=== PATIENT | female | born 1950 | race Caucasian/White ===

== ENCOUNTER 2018-09-29 12:32 | Day surgery (SDC) | payer MEDICARE, BC, SELFPAY ==
[2018-09-29 12:55] VITALS: BP 150/75; PULSE 77; RESP 16; TEMP 36.7; O2SAT 99
[2018-09-29] MEDS: CATARACT EYE COMPOUND (10 DROPS/SYRINGE) 3 DROPS EYE-OP (13:15)
[2018-09-29] MEDS: PROPARACAINE 0.5% OPHTH SOL 2 DROPS EYE-OP (13:15)
--- NOTE | 2018-09-29 13:55 | PM.PREOP ---
Pre-operative Note Interval Note Changes: No
--- NOTE | 2018-09-29 13:56 | P.OP.PRE_ITS ---
Pre-operative Note Interval Note Changes: No
--- NOTE | 2018-09-29 13:56 | P.OP_ITS ---
Operative Date/Time/Diagnoses Pre-op diagnosis: Nuclear cataract right eye Procedure & Clinicians Procedure: Cataract Surgery Same procedure as scheduled: Yes Surgeon: Florentino Berg Anesthesia Type: MAC +/- and Sedation Operative Notes Procedure in detail: Patient brought to the operating suite. Tetracaine drops placed in the right eye. Patient was prepped and draped in sterile manner. Wire lid speculum was placed in the eye. Betadine drops were placed on the eye. This was irrigated. Lidocaine jelly was placed on the eye. A paracentesis port was created with a side-port blade. 0.1 mL 1% preservative free lidocaine was injected into the anterior chamber. The anterior chamber was deepened with viscoelastic. 2.6 mm keratome was used to create a temporal clear corneal incision. Cystotome and Utrata forceps were used to create continuous tear capsulorrhexis. Balanced salt solution was used to hydro dissect the nucleus. The phacoemulsification handpiece was inserted and the nucleus was removed using the stop and chop technique. The irrigation aspiration handpiece was inserted and the remaining cortex was removed. Anterior chamber was deepened with viscoelastic. An Smith ZCB00 intraocular lens with a power of 17.0 was injected into the capsular bag. Irrigation aspiration handpiece was inserted and the remaining viscoelastic was removed. Incision was hydrated with balanced salt solution and found to be leak free with pressure with Weck- Amira sponges. 0.1 mL Vigamox injected anterior chamber. 0.3 mL Kenalog 10 mg was injected subconjunctivally. Lid speculum was removed. The patient left the operating room in excellent condition. Complications: none Condition: stable Disposition: same day surgery
--- NOTE | 2018-09-29 14:10 | SUR.OPER ---
Supine on eye stretcher, head on extension cradle secured with tape. Arms tucked at sides with blanket. Pillow under knees.
[2018-09-29] MEDS: CHONDROIDTIN/SOD HYALURONATE 1.05 ML SYRINGE INTRAOCULA (14:13)
[2018-09-29] MEDS: MOXIFLOXACIN OPHTH DROPS 3 ML BOTTLE 2 DROPS INJ (14:14)
[2018-09-29] MEDS: TETRACAINE 0.5% OPHTH DROPS 15 ML 2 DROPS EYE-RIGHT (14:14)
[2018-09-29] MEDS: PHENYLEPHRINE/LIDOCAINE VIAL (OR) 0.2 ML EYE-OP (14:14)
[2018-09-29] MEDS: LIDOCAINE JELLY 2% 5 ML 1 APPLIC TOP (14:14)
[2018-09-29] MEDS: BALANCED SALT IRRIG SOLN NO.2 500 ML, EPINEPHrine 1 MG IRR (14:15)
[2018-09-29] MEDS: TRIAMCINOLONE 50 MG/5 ML VIAL INJ (14:15)
[2018-09-29 14:28] VITALS: BP 148/76; PULSE 63; RESP 16; TEMP 36.6; O2SAT 97
--- NOTE | 2018-09-29 14:50 | SUR.PHASEII ---
l eye bloody on arrival to phase 2, dr cisse aware, instructed to remove shield and clean skin around eye, this completed, no further bleeding and shield placed back on.
== END 2018-09-29 14:48 ==
LOC: OR 12:39
PROVIDERS: PCP Family Medicine; Visit Provider Ophthalmology
DX: H25.11 Age-related nuclear cataract, right eye (principal); I10 Essential (primary) hypertension
CPT/HCPCS: J0171; J2250; J3010; J3301

== ENCOUNTER 2018-10-13 07:17 | Day surgery (SDC) | payer MEDICARE, BC, SELFPAY ==
[2018-10-13 07:45] VITALS: BP 143/69; PULSE 70; RESP 12; TEMP 37.2; O2SAT 97; BMI 22.3
[2018-10-13] MEDS: PROPARACAINE 0.5% OPHTH SOL 2 DROPS EYE-OP (08:04)
[2018-10-13] MEDS: CATARACT EYE COMPOUND (10 DROPS/SYRINGE) 3 DROPS EYE-OP (08:05)
[2018-10-13] MEDS: CITRIC ACID/SODIUM CITRATE 15 ML SOLUTION 30 ML PO (08:34)
--- NOTE | 2018-10-13 09:15 | P.OP_ITS ---
Operative Date/Time/Diagnoses Pre-op diagnosis: Nuclear Cataract Left eye Post-op diagnosis: same Procedure & Clinicians Surgeon: Florentino Berg Anesthesia Type: MAC +/- and Sedation Operative Notes Procedure in detail: Patient brought to the operating suite. Tetracaine drops placed in the left eye. Patient was prepped and draped in sterile manner. Wire lid speculum was placed in the eye. Betadine drops were placed on the eye. This was irrigated. Lidocaine jelly was placed on the eye. A paracentesis port was created with a side-port blade. 0.1 mL 1% preservative free lidocaine was injected into the anterior chamber. The anterior chamber was deepened with viscoelastic. 2.6 mm keratome was used to create a temporal clear corneal incision. Cystotome and Utrata forceps were used to create continuous tear capsulorrhexis. Balanced salt solution was used to hydro dissect the nucleus. The phacoemulsification handpiece was inserted and the nucleus was removed using the stop and chop technique. The irrigation aspiration handpiece was inserted and the remaining cortex was removed. Anterior chamber was deepened with viscoelastic. An Smith ZCB00 intraocular lens with a power of 22.0 was injected into the capsular bag. Irrigation aspiration handpiece was inserted and the remaining viscoelastic was removed. Incision was hydrated with balanced salt solution and found to be leak free with pressure with Weck- Amira sponges. 0.1 mL Vigamox injected anterior chamber. 0.3 mL Kenalog 10 mg was injected subconjunctivally. Lid speculum was removed. The patient left the operating room in excellent condition. Complications: none Condition: stable Disposition: same day surgery
--- NOTE | 2018-10-13 09:15 | P.OP.PRE_ITS ---
Pre-operative Note Interval Note Changes: No
--- NOTE | 2018-10-13 09:15 | PM.PREOP ---
Pre-operative Note Interval Note Changes: No
--- NOTE | 2018-10-13 09:26 | SUR.OPER ---
Supine on eye stretcher, head on extension cradle secured with tape. Arms tucked at sides with blanket. Pillow under knees.
[2018-10-13] MEDS: CHONDROIDTIN/SOD HYALURONATE 1.05 ML SYRINGE INTRAOCULA (09:28)
[2018-10-13] MEDS: PHENYLEPHRINE/LIDOCAINE VIAL (OR) 0.2 ML EYE-OP (09:29)
[2018-10-13] MEDS: LIDOCAINE JELLY 2% 5 ML 1 APPLIC TOP (09:29)
[2018-10-13] MEDS: MOXIFLOXACIN OPHTH DROPS 3 ML BOTTLE 2 DROPS INJ (09:29)
[2018-10-13] MEDS: TETRACAINE 0.5% OPHTH DROPS 15 ML 2 DROPS EYE-LEFT (09:30)
[2018-10-13] MEDS: TRIAMCINOLONE 50 MG/5 ML VIAL INJ (09:30)
[2018-10-13] MEDS: BALANCED SALT IRRIG SOLN NO.2 500 ML, EPINEPHrine 1 MG IRR (09:30)
[2018-10-13 09:47] VITALS: BP 122/73; PULSE 57; RESP 15; TEMP 36.4; O2SAT 97
--- NOTE | 2018-10-13 09:47 | SUR.PHASEII ---
iv dcd at 0947 pt tolerated well. cath intact no swelling or redness noted.
== END 2018-10-13 09:51 ==
LOC: OR 07:19
PROVIDERS: PCP Family Medicine; Visit Provider Ophthalmology
DX: H25.12 Age-related nuclear cataract, left eye (principal); I10 Essential (primary) hypertension
CPT/HCPCS: J0171; J2250; J3010; J3301

== ENCOUNTER → 2019-11-08 12:37 | Outpatient (CLI) | payer MEDICARE, BC, SELFPAY ==
[2019-11-08 13:31] LABS: Add Manual Diff / Slide Review NO; Basophils Absolute Auto 0 /uL (0-100); Basophils Percent Auto 0.7 % (0-2); Eosinophils Absolute Auto 200 /uL (0-450); Eosinophils Percent Auto 3.1 % (2-4); Hemoglobin 14.3 g/dL (12.0-16.0); Lymphocytes Absolute Auto 2000 /uL (1100-4500); Lymphocytes Percent Auto 32.5 % (25-40); Mean Corpuscular Hemoglobin 31.6 PG (26-34); Mean Corpuscular Volume 93.1 fL (80-100); Monocytes Absolute Auto 500 /uL (0-900); Monocytes Percent Auto 7.5 % (3-14); Neutrophils Absolute Auto 3500 /uL (1500-7000); Neutrophils Percent Auto 56.2 % (50-75); Platelet Count 353 X10^3/uL (150-400); Red Blood Cell Count 4.51 X10^6/uL (4.0-5.2); White Blood Cell Count 6.2 X10^3/uL (4.5-11.0)
[2019-11-08 13:49] LABS: Alanine Aminotransferase 21 IU/L (<35); Albumin 4.6 g/dL (3.5-5.0); Albumin Globulin Ratio 1.6 (1.0-2.8); Alkaline Phosphatase 93 U/L (38-126); Aspartate Aminotransferase 28 IU/L (14-36); BUN Creatinine Ratio 28.8 (6-22); Bilirubin Total 0.9 mg/dL (0.2-1.3); Blood Urea Nitrogen 23 mg/dL (7-17); Calcium 9.6 mg/dL (8.4-10.2); Carbon Dioxide 30 mmol/L (22-32); Chloride 102 mmol/L (98-107); Estimated Glomerular Filt Rate > 60.0 mL/min (>60); Globulin 2.9 g/dL (1.7-4.1); Glucose 98 mg/dL (80-110); HEMOLYSIS < 15 (0-50); Potassium 4.2 mmol/L (3.4-5.1); Sodium 140 mmol/L (137-145); Total Protein 7.5 g/dL (6.3-8.2)
[2019-11-08 15:12] LABS: Thyroid Stimulating Hormone 2.28 uIU/mL (0.47-4.68)
== END ==
PROVIDERS: PCP Family Medicine; Visit Provider Family Medicine
DX: E03.9 Hypothyroidism, unspecified (principal)
CPT/HCPCS: 36415; 80053; 84443; 85025

== ENCOUNTER → 2020-05-09 07:45 | Outpatient (CLI) | payer MEDICARE, BC, SELFPAY ==
[2020-05-09 08:24] LABS: Cholesterol 223 mg/dL (140-199); HDL Cholesterol 81 mg/dL (40-60); LDL Cholesterol Calculated 121 mg/dL (<100); Triglycerides 107 mg/dL (35-150)
[2020-05-09 08:28] LABS: Hemoglobin A1C% w Est Avg Glu 5.6 % (4.0-6.0)
== END ==
PROVIDERS: PCP Family Medicine; Referring Provider Family Medicine; Visit Provider Family Medicine
DX: E78.2 Mixed hyperlipidemia (principal); E16.2 Hypoglycemia, unspecified
CPT/HCPCS: 36415; 80061; 83036

== ENCOUNTER → 2020-07-04 08:46 | Outpatient (CLI) | payer MEDICARE, BC, SELFPAY ==
--- NOTE | 2020-07-04 08:47 | DI.US.S_ITS ---
LIMITED ULTRASOUND OF RIGHT BREAST AND AXILLA: 07/04/2020 CLINICAL: Right breast abnormal mammo and palpable area with dimpling. [facility] Color flow ultrasound of the right breast 5 o'clock, 11 o'clock, and axilla regions was performed. Schaefer scale images of the real-time examination were reviewed. There is a 0.3 cm x 0.4 cm x 0.2 cm oval mass with a circumscribed margin in the right breast at 5 o'clock in the retroareolar region 1 cm from the nipple. This oval mass is hypoechoic with posterior acoustic enhancement. This correlates as palpated. Color flow imaging demonstrates that there is no increase in vascularity. Adjacent to this lesion is another lesion with similar size and features. No significant abnormalities were seen sonographically in the right axilla. IMPRESSION: PROBABLY BENIGN The 0.3 cm x 0.4 cm x 0.2 cm oval mass in the right breast has a differential diagnosis of complicated cysts and is probably benign. A follow-up ultrasound in 6 months is recommended. There is no abnormality seen in the right breast to correspond with the mammography finding at 11 o'clock. A follow-up right mammogram and an ultrasound in 6 months is recommended to demonstrate stability. This exam was interpreted at Station ID: [id number]. Electronically Signed By: Enrico coffey/todd:07/04/2020 11:18:09 letter sent: Followup Recommended Ultrasound BI-RADS: 3 Probably benign
--- NOTE | 2020-07-04 08:47 | DI.MG.S_ITS ---
BILATERAL DIGITAL DIAGNOSTIC MAMMOGRAM 3D/2D: 07/04/2020 CLINICAL: Baseline. Right breast lump and dimpling. No prior exams were available for comparison. The tissue of both breasts is heterogeneously dense. This may lower the sensitivity of mammography. There are grouped coarse punctate calcifications in the right breast at 11 o'clock posterior depth. No other significant masses, calcifications, or other findings are seen in either breast. IMPRESSION: INCOMPLETE: NEEDS ADDITIONAL IMAGING EVALUATION The grouped coarse punctate calcifications in the right breast are probably benign. A follow-up in 6 months is recommended. There is no abnormality seen in the right breast to correspond with the palpable abnormality in the sub-areolar depth, however, ultrasound is recommended. This exam was interpreted at Station ID: [id number]. NOTE: For mammograms, a report in lay terms will be sent to the patient. Approximately 15% of breast malignancies will not be visualized mammographically. In the management of a palpable breast mass, a negative mammogram must not discourage biopsy of a clinically suspicious lesion. Electronically Signed By: Enrico coffey/todd:07/04/2020 11:11:57 ACR BI-RADS Category 0: Incomplete [id number]
== END ==
PROVIDERS: PCP Family Medicine; Referring Provider Family Medicine; Visit Provider Family Medicine
DX: R92.8 Other abnormal and inconclusive findings on diagnostic imaging of breast (principal); R92.1 Mammographic calcification found on diagnostic imaging of breast; N63.14 Unspecified lump in the right breast, lower inner quadrant
CPT/HCPCS: 76642; 77066; G0279

== ENCOUNTER → 2021-01-26 15:56 | Outpatient (CLI) | payer MEDICARE, BC, SELFPAY ==
[2021-01-26] MEDS: COVID-19 VACC #1, MRNA(MOD) 100 MCG/0.5 ML VIAL IM (16:04)
== END ==
PROVIDERS: PCP Nurse Practitioner; Visit Provider Internal Medicine
DX: Z23 Encounter for immunization (principal)
CPT/HCPCS: 0011A; 91301

== ENCOUNTER → 2021-02-23 10:44 | Outpatient (CLI) | payer MEDICARE, BC, SELFPAY ==
[2021-02-23] MEDS: COVID-19 VACC #2, MRNA(MOD) 100 MCG/0.5 ML VIAL IM (10:51)
== END ==
PROVIDERS: PCP Nurse Practitioner; Visit Provider Internal Medicine
DX: Z23 Encounter for immunization (principal)
CPT/HCPCS: 0012A; 91301

== ENCOUNTER → 2021-03-09 07:30 | Outpatient (CLI) | payer MEDICARE, BC, SELFPAY ==
[2021-03-09 08:21] LABS: Alanine Aminotransferase 23 IU/L (<35); Albumin 4.2 g/dL (3.5-5.0); Albumin Globulin Ratio 1.5 (1.0-2.8); Alkaline Phosphatase 87 U/L (38-126); Aspartate Aminotransferase 27 IU/L (14-36); BUN Creatinine Ratio 26.9 (6-22); Bilirubin Total 0.9 mg/dL (0.2-1.3); Blood Urea Nitrogen 21 mg/dL (7-17); Calcium 9.5 mg/dL (8.4-10.2); Carbon Dioxide 30 mmol/L (22-32); Chloride 104 mmol/L (98-107); Cholesterol 205 mg/dL (140-199); Estimated Glomerular Filt Rate > 60.0 mL/min (>60); Globulin 2.8 g/dL (1.7-4.1); Glucose 92 mg/dL (80-110); HDL Cholesterol 76 mg/dL (40-60); HEMOLYSIS < 15 (0-50); LDL Cholesterol Calculated 106 mg/dL (<100); Sodium 138 mmol/L (137-145); Triglycerides 115 mg/dL (35-150)
[2021-03-09 08:44] LABS: Free T3, Triiodothyronine Free 2.79 pg/mL (2.77-5.27); Free T4, Direct Thyroxine 1.04 ng/dL (0.78-2.19)
[2021-03-09 08:57] LABS: Thyroid Stimulating Hormone 3.33 uIU/mL (0.47-4.68)
== END ==
PROVIDERS: PCP Nurse Practitioner; Referring Provider Nurse Practitioner; Visit Provider Nurse Practitioner
DX: E03.9 Hypothyroidism, unspecified (principal); I10 Essential (primary) hypertension; E78.2 Mixed hyperlipidemia; Z79.899 Other long term (current) drug therapy
CPT/HCPCS: 36415; 80053; 80061; 84439; 84443; 84481

== ENCOUNTER → 2021-05-21 09:42 | Outpatient (CLI) | payer MEDICARE, BC, SELFPAY ==
--- NOTE | 2021-05-21 09:44 | DI.US.S_ITS ---
PROCEDURE: US PELVIC COMPLETE INDICATIONS: vaginal mass TECHNIQUE: Real-time scanning was performed of the pelvic organs, with image documentation. Additional endovaginal scanning was necessary due to incomplete visualization of the adnexal and endometrial structures by transabdominal scanning. COMPARISON: None. FINDINGS: Uterus: Surgically absent. A discrete pelvic masses not sonographically visible. Ovaries: Surgically absent Other: No pathologic free abdominal or pelvic fluid. Bladder grossly unremarkable. Postvoid residual measures 108 cc. IMPRESSION: No sonographically visible pelvic mass lesion identified. If there is persistent high clinical concern, further evaluation with cross-sectional imaging could be performed as clinically necessary. Dictated by: Best Mary M.D. on 05/21/2021 at 13:13 Approved by: Best Mary M.D. on 05/21/2021 at 13:16
== END ==
PROVIDERS: Family Provider Nurse Practitioner; PCP Nurse Practitioner; Referring Provider Nurse Practitioner; Visit Provider Nurse Practitioner
DX: N89.8 Other specified noninflammatory disorders of vagina (principal); Z90.710 Acquired absence of both cervix and uterus
CPT/HCPCS: 76830; 76856

== ENCOUNTER → 2021-05-25 08:45 | Outpatient (CLI) | payer MEDICARE, BC, SELFPAY ==
--- NOTE | 2021-05-25 08:46 | DI.MG.S_ITS ---
BILATERAL DIGITAL DIAGNOSTIC MAMMOGRAM 3D/2D: 05/25/2021 CLINICAL: Short term follow up of the right breast, due for bilateral imaging. Comparison is made to exams dated: 07/04/2020 ultrasound and 07/04/2020 mammogram - [facility]. The tissue of both breasts is heterogeneously dense. This may lower the sensitivity of mammography. There is an oval mass with a circumscribed margin in the right breast at 5 o'clock anterior depth. This is not significantly changed and correlates with ultrasound findings. There also are grouped coarse punctate calcifications in the right breast at 11 o'clock posterior depth. These are not significantly changed. No other significant masses, calcifications, or other findings are seen in either breast. IMPRESSION: INCOMPLETE: NEEDS ADDITIONAL IMAGING EVALUATION The oval mass in the right breast at 5 o'clock anterior depth is indeterminate. An ultrasound is recommended. The grouped coarse punctate calcifications in the right breast at 11 o'clock posterior depth are probably benign. A follow-up in 6 months is recommended. This exam was interpreted at Station ID: [id number]. NOTE: For mammograms, a report in lay terms will be sent to the patient. Approximately 15% of breast malignancies will not be visualized mammographically. In the management of a palpable breast mass, a negative mammogram must not discourage biopsy of a clinically suspicious lesion. Electronically Signed By: Enrico coffey/todd:05/25/2021 10:12:00 ACR BI-RADS Category 0: Incomplete [id number]
--- NOTE | 2021-05-25 08:46 | DI.US.S_ITS ---
LIMITED ULTRASOUND OF RIGHT BREAST: 05/25/2021 CLINICAL: 6 month follow-up of cysts. Comparison is made to exams dated: 05/25/2021 mammogram, 07/04/2020 ultrasound, and 07/04/2020 mammogram - [facility]. Color flow ultrasound of the right breast was performed. Schaefer scale images of the real-time examination were reviewed. There is a 0.3 cm x 0.4 cm x 0.2 cm oval cyst in the right breast at 5 o'clock in the retroareolar region 1 cm from the nipple. This oval cyst is hypoechoic with posterior acoustic enhancement. This abnormality is not significantly changed and correlates as palpated. Color flow imaging demonstrates that there is no increase in vascularity. Adjacent to this cyst is another complicated cyst with similar size and features. IMPRESSION: PROBABLY BENIGN The 0.3 cm x 0.4 cm x 0.2 cm oval cyst in the right breast most likely is complicated cysts and is probably benign. A follow-up ultrasound in 6 months is recommended. A follow-up right mammogram and an ultrasound in 6 months is recommended to demonstrate stability. This exam was interpreted at Station ID: [id number]. Electronically Signed By: Enrico coffey/todd:05/25/2021 10:14:25 letter sent: Followup Recommended Ultrasound BI-RADS: 3 Probably benign
== END ==
PROVIDERS: Family Provider Nurse Practitioner; PCP Nurse Practitioner; Referring Provider Nurse Practitioner; Visit Provider Nurse Practitioner
DX: R92.8 Other abnormal and inconclusive findings on diagnostic imaging of breast (principal); R92.1 Mammographic calcification found on diagnostic imaging of breast; N60.01 Solitary cyst of right breast; N89.8 Other specified noninflammatory disorders of vagina
CPT/HCPCS: 76642; 77066; G0279

== ENCOUNTER 2021-07-27 11:15 | Outpatient (RCR) | payer MEDICARE, BC, SELFPAY ==
--- NOTE | 2021-04-06 16:44 | PT.OIE ---
Current Diagnoses Muscle weakness (generalized) (04/06/21) Mixed incontinence (04/06/21) Other specified urinary incontinence (04/06/21) Other specified symptoms and signs involving the digestive system and abdomen (04/06/21) Abnormal posture (04/06/21) Past Medical History (Last Updated 12/12/20 @ 11:09 by KELLEY Aquino) Hypertension Past Surgical History (Last Reviewed 12/12/20 @ 10:27 by KELLEY Aquino) S/P total abdominal hysterectomy and bilateral salpingo-oophorectomy Visit Care Team Role Provider Type KELLEY Aquino Attending Provider Advanced Sports Coordinator Family Provider Primary Care Provider Referring Provider Specialty: [facility] Address: [address] [place] [address] Email: [email or web address] Therapy Initial Evaluation PT-OP-A Visit Information Start: 03/26/21 18:37 Freq: Status: Active Protocol: Document 04/06/21 08:16 LRN (Rec: 04/06/21 09:48 LRN [id number]) Out-Patient Physical Therapy Visit Information Visit Information Visit Type Treatment Note Visit Start Time 08:16 Visit Stop Time 09:20 Total Visit Minutes 64 Visit Number 1 Evaluation Information Evaluation Date 04/06/21 Precautions Precautions [facility] in shoulder blades - 12/21, Heart attack 2012. Pt noted in her teens she had negative experience with incorrect boundries by a health provider. PT-OP-B Current Condition Start: 03/26/21 18:37 Freq: Status: Active Protocol: Document 04/06/21 08:16 LRN (Rec: 04/06/21 09:48 LRN [id number]) Current Condition History of Current Condition Onset Date Worsened gradually since late 's. Current Complaints Urgency History of Current Condition Pt states she has primary problem of urgency and has noted increased frequency. She has tried estrogen treatment for her problem, but didn't find it helpful. Her urinary urgency started in her 20's and has gradually worsened since her late 30's. She is sometimes has total loss of urinary control and is most noticeable when approaching her house. She has to change clothes a couple times a week due to total loss of control. Incontinence comes after intercourse the day after; therefore she is no longer sexually active. Has studied iatrogenic problems for her urgency and is not taking cranberry tablets and Uvaursi (over the counter pill). Pt is a retired Psychotherapist. Prior Treatments and Tests Estrogen treatment used by Dr. Vizcarra didn't help. Currently taking Oxybutryn, cranberry tablets, Uvaursi, and estogen suppositories. Developmental History Developmental History Urinary urgency started in 20' s when became sexually active and with use of IUD. Was diagnosed with urinary urgency worsened in late 30's. At some point pt was diagnosed with cystitis & had hysterectomy with 1 ovary removed. Uses estrogen insert . No longer sexually active because of urinary leakage after intercourse. Has had bladder pain and pelvic floor pain after sex ( diagnosed with cystitis) - drinking cranberry juice helped (anti-bitics didn't help). Now has urgency and some frequency. As approach house urgency gets worse. Treatment Goals Patient/Caregiver Goals Pt goal is to not change clothes, and to be able to: exercise, ride bike, and have option of having sex. Prior Functional Status Baseline Function- ADL's Independent Baseline Function- Mobility Independent Baseline Function- Other Urgency - some control of urine. Current Functional Impairments (Reported) Functional Limitations- ADL's Doesn't walk [place] Not able to ride bike Not lifting weights Doesn't have sex Functional Limitations- Other Urgency, w/o medications, the urine poors out. Lack of control - not able to stop urine flow. Personal Factors Other Personal Factors That May Effect In her teens she had negative Therapy/Recovery experience with incorrect boundries by a health provider . Heart attack 2012. PT-OP-C Subjective Start: 03/26/21 18:37 Freq: Status: Active Protocol: Document 04/06/21 08:16 LRN (Rec: 04/06/21 09:48 LRN [id number]) Patient Questionnaires Pelvic Pain and Urgency/Frequency Patient Symptom Scale Pelvic Pain Score 14 PT-OP-I Pelvic Floor Start: 03/26/21 18:37 Freq: Status: Active Protocol: Document 04/06/21 08:16 LRN (Rec: 04/06/21 09:48 LRN [id number]) Pelvic Floor Assessment Urine Pelvic Floor Surgery No: Had hyste to remove 1 ovary Urinary Symptoms Urge Sensation,Dribbling After Urination,Incomplete Emptying Other Urinary Symptoms Hard to start stream. Leakage Size Large Leakage Cause Cough,Exercise,Lifting,Sneeze, Urge Other Leakage Causes Leakage is small. Unlocking house. Major leaking 2x/week. Leaks Per Day 2 Voiding Frequency 10 Nocturia 2-3 Pads Used In 24 Hours 1 Urine Pad Type Panty Liner Bowel Bowel Symptoms Uncontrolled Flatulence Other Bowel Symptoms Bowel surgery - 1984 due to fissure, removed and sewed up tissues fragile and took 1 yr to heal. Corrected due to pain. Bowel Movement Frequency 1x/day [place] Stool Chart Type 1-7 4 [place] Stool Chart Comments type of stool 4 & 5 Prolapse Cystocele Grade 2 Contraction Ability Voluntary Contraction Moderate Manual Muscle Testing Left 2 Manual Muscle Testing Right 3 Manual Muscle Testing Anterior 0 Manual Muscle Testing Posterior 3 Muscle Endurance (Seconds) 10 Number of Quick Contractions In 10 9 Seconds Comments Pelvic Floor Comments Pt able to relax the PF but requires conscientious awareness to relax. Endurance contractioin: Uncoordinated with no inward pull noted. PT-OP-J Posture/Palpation/Skin Start: 03/26/21 18:37 Freq: Status: Active Protocol: Document 04/06/21 08:16 LRN (Rec: 04/06/21 09:48 LRN [id number]) Posture Evaluation Position Standing Head/C-Spine Posture Forward Head T-Spine Posture Flattened L-Spine Posture Increased Lordosis Pelvis Posture Anteriorly Tilted,(L) Rotated Anterior,(R) Rotated Anterior Weight Distribution Balanced Comments Posture Comments Wide stance. PT-OP-K Range of Motion Start: 03/26/21 18:37 Freq: Status: Active Protocol: Document 04/06/21 08:16 LRN (Rec: 04/06/21 09:48 LRN [id number]) Lumbar Spine Range of Motion Lumbar Spine Active Percentage Flexion 90 ROM Limitations Soft Tissue Tightness Comments 100% except as indicated above . Hip Goniometric Range of Motion Hip Right Passive Testing Position Supine Straight Leg Raise 75 Abduction 20 Internal Rotation 45 External Rotation 65 Comments Decr IR Left Passive Testing Position Supine Straight Leg Raise 75 Abduction 28 Internal Rotation 45 External Rotation 55 Comments Decreased ER & IR Hip ROM Limitations Comments Pt had urgency after ROM testing of hip AD's PT-OP-M Strength Start: 03/26/21 18:37 Freq: Status: Active Protocol: Document 04/06/21 08:16 LRN (Rec: 04/06/21 09:48 LRN [id number]) Trunk Strength Trunk Manual Muscle Testing Flexion 3 Fair Rotation Left 3- Fair- Rotation Right 3- Fair- Core Stabilization Loss of stab with LE MMT of flexion and AB bilaterally. Hip Strength Hip Manual Muscle Testing Right Flexion (L2) 3 Fair Extension (S1) 2+ Poor+ Abduction 5 Normal Adduction 5 Normal External Rotation 3 Fair Internal Rotation 3 Fair Left Flexion (L2) 3 Fair Extension (S1) 2+ Poor+ Abduction 5 Normal Adduction 5 Normal External Rotation 3 Fair Internal Rotation 3 Fair PT-OP-Q Treatments Start: 03/26/21 18:37 Freq: Status: Active Protocol: Document 04/06/21 08:16 LRN (Rec: 04/06/21 09:48 LRN [id number]) Self-Care/Home Management Treatment Education Patient Education Home Exercise Program Other Education Discussed results of evaluation, goals and plan of care. Activities Self-Care/Home Management Activities Instructed pt in completion of bladder diary for next 7 days . PT-OP-T Assessment and Plan Start: 03/26/21 18:37 Freq: Status: Active Protocol: Document 04/06/21 08:16 LRN (Rec: 04/06/21 09:48 LRN [id number]) Physical Therapy Assessment Rehab Potential Rehabilitation Potential Good Evaluation Complexity Number of Personal Factors/Comorbidities 1-2 Number of Body Systems Impaired 4 or More Clinical Presentation at Evaluation Evolving Impairments Impairments Activity Tolerance,Pain,ROM, Strength Goals Four Impairment Decreased awareness of performing a proper PF contraction. Short Term Goal (STG) Improve awareness of a proper PF contraction STG Duration 03/22/21 Orthopaedic Doctor Goal (LTG) Pt will be aware of the sensation of a proper PF contraction. LTG: Pt will be able to isolate a PF contraction without overuse of the outer abdominal muscles, hip AD?s muscles, and gluteal muscles. LTG Duration 07/05/21 Three Impairment Urinary incontinence with a strong urge & increased activity Short Term Goal (STG) Pt will be able to return to exercise in an exercise gym without fear of urinary leakage. STG Duration 06/01/21 Group Home Goal (LTG) Pt will be able to return to ride a bike without fear of urinary leakage. LTG Duration 07/05/21 Two Impairment Urinary incontinence Short Term Goal (STG) Pt will not have to change clothes 2-3x/week. STG Duration 05/04/21 Orthopaedic Doctor Goal (LTG) Pt will feel she has an option of having sex without fear of unmanageable urinary leakage the day after. LTG Duration 07/05/21 One Impairment Pt lacks appropriate self care HEP. Short Term Goal (STG) Pt will be independent with a HEP of hip stretches for hip flexors, hamstrings, & hip rotators. (Initially: decreased L hip mobility (in deg's): PSLR: 75 deg's bilaterally; IR 45 deg's bilaterally; ER 55 L, 65 R; AB 28 L, 20 R). Orthopaedic Doctor Goal (LTG) Pt educated in self care HEP including appropriate PF exercises and hip mobility exercises (PSLR,hip rotation and AB mobility). LTG Duration 07/05/21 Assessment Summary Assessment Pt is a 71 yo female who presents with urge incontinence and to a lesser degree stress incontinence. She doesn't appear at this time to have GI involvement, but further determination will be done after she provides a bladder diary. The pt demonstrates tightness with pain in the R lateral wall (6- 9 of PF clock) and weakness/ swelling in the tissue in the L lateral wall (2-3 of the PF clock) that will need further assessment. The pt has been advised to seek follow up assessment with referring physician. The pt also demonstrates postural changes, trunk weakness, and decreased hip mobility. She demonstrated onset of urgency with palpation and stretch to her hip adductors during the evalation. The pt will benefit from skilled physical therapy to minimize urinary leakage, improve control of uinary leakage, improve ability to exercise for her health and work towards the below stated goals. Physical Therapy Plan Frequency and Duration Frequency of Treatment 1x/Week Plan of Care Start Date 04/06/21 Plan of Care End Date 07/05/21 Therapeutic Interventions Therapeutic Interventions Coordination Training,Home Exercise Program,Joint Mobilizations,Manual Therapy, Neuromuscular Re-education, Patient/Caregiver Education, Self-Care/Home Management,Soft Tissue Mobilization, Therapeutic Activities, Therapeutic Exercises Modalities Biofeedback,Cold Pack/Ice Massage,Electric Stimulation, Hot Packs Other Referrals/Consults Referrals/Consults Recommended Referring physician for assessment for swelling at L side of PF. Next Visit Focus/Plan Next Note Type Treatment Note Next Visit Plan Review bladder diary, biofeedback assessment with vaginal/rectal/surface sensor( s), Educate pt in urinary delay technique, pt education in proper Kegel without use of substitute muscles, pt education in proper perineum care, deep breathing and transfers, PF/core/hip strengthening, improve hip mobility. Rehab for mixed urinary incontinence with focus on urge incontinence.
--- NOTE | 2021-04-12 16:22 | PT.OTN ---
Current Diagnoses Muscle weakness (generalized) (04/12/21) Mixed incontinence (04/12/21) Other specified urinary incontinence (04/12/21) Other specified symptoms and signs involving the digestive system and abdomen (04/12/21) Abnormal posture (04/12/21) Physical Therapy Treatment Note PT-OP-A Visit Information Start: 03/26/21 18:37 Freq: Status: Active Protocol: Document 04/12/21 11:27 LRN (Rec: 04/12/21 12:19 LRN [id number]) Out-Patient Physical Therapy Visit Information Visit Information Visit Type Treatment Note Visit Start Time 11:27 Visit Stop Time 12:13 Total Visit Minutes 46 Visit Number 2 Evaluation Information Evaluation Date 04/06/21 Precautions Precautions [facility] in shoulder blades - 12/21, Heart attack 2012. Pt noted in her teens she had negative experience with incorrect boundries by a health provider. PT-OP-B Current Condition Start: 03/26/21 18:37 Freq: Status: Active Protocol: Document 04/06/21 08:16 LRN (Rec: 04/06/21 09:48 LRN [id number]) Current Condition History of Current Condition Onset Date Worsened gradually since late 's. Current Complaints Urgency History of Current Condition Pt states she has primary problem of urgency and has noted increased frequency. She has tried estrogen treatment for her problem, but didn't find it helpful. Her urinary urgency started in her 20's and has gradually worsened since her late 30's. She is sometimes has total loss of urinary control and is most noticeable when approaching her house. She has to change clothes a couple times a week due to total loss of control. Incontinence comes after intercourse the day after; therefore she is no longer sexually active. Has studied iatrogenic problems for her urgency and is not taking cranberry tablets and Uvaursi (over the counter pill). Pt is a retired Psychotherapist. Prior Treatments and Tests Estrogen treatment used by Dr. Vizcarra didn't help. Currently taking Oxybutryn, cranberry tablets, Uvaursi, and estogen suppositories. Developmental History Developmental History Urinary urgency started in 20' s when became sexually active and with use of IUD. Was diagnosed with urinary urgency worsened in late 30's. At some point pt was diagnosed with cystitis & had hysterectomy with 1 ovary removed. Uses estrogen insert . No longer sexually active because of urinary leakage after intercourse. Has had bladder pain and pelvic floor pain after sex ( diagnosed with cystitis) - drinking cranberry juice helped (anti-bitics didn't help). Now has urgency and some frequency. As approach house urgency gets worse. Treatment Goals Patient/Caregiver Goals Pt goal is to not change clothes, and to be able to: exercise, ride bike, and have option of having sex. Prior Functional Status Baseline Function- ADL's Independent Baseline Function- Mobility Independent Baseline Function- Other Urgency - some control of urine. Current Functional Impairments (Reported) Functional Limitations- ADL's Doesn't walk [place] Not able to ride bike Not lifting weights Doesn't have sex Functional Limitations- Other Urgency, w/o medications, the urine poors out. Lack of control - not able to stop urine flow. Personal Factors Other Personal Factors That May Effect In her teens she had negative Therapy/Recovery experience with incorrect boundries by a health provider . Heart attack 2012. PT-OP-C Subjective Start: 03/26/21 18:37 Freq: Status: Active Protocol: Document 04/12/21 11:27 LRN (Rec: 04/12/21 12:19 LRN [id number]) OP-PT Subjective Patient Comments Patient Comments States her BUN level was up and she was told to drink more water (64 oz's). States she has been drinking 32 oz's daily. Stopped taking [facility] URSI because hairdresser said it was bad for kidneys. PT-OP-I Pelvic Floor Start: 03/26/21 18:37 Freq: Status: Active Protocol: Document 04/06/21 08:16 LRN (Rec: 04/06/21 09:48 LRN [id number]) Pelvic Floor Assessment Urine Pelvic Floor Surgery No: Had hyste to remove 1 ovary Urinary Symptoms Urge Sensation,Dribbling After Urination,Incomplete Emptying Other Urinary Symptoms Hard to start stream. Leakage Size Large Leakage Cause Cough,Exercise,Lifting,Sneeze, Urge Other Leakage Causes Leakage is small. Unlocking house. Major leaking 2x/week. Leaks Per Day 2 Voiding Frequency 10 Nocturia 2-3 Pads Used In 24 Hours 1 Urine Pad Type Panty Liner Bowel Bowel Symptoms Uncontrolled Flatulence Other Bowel Symptoms Bowel surgery - 1984 due to fissure, removed and sewed up tissues fragile and took 1 yr to heal. Corrected due to pain. Bowel Movement Frequency 1x/day [place] Stool Chart Type 1-7 4 [place] Stool Chart Comments type of stool 4 & 5 Prolapse Cystocele Grade 2 Contraction Ability Voluntary Contraction Moderate Manual Muscle Testing Left 2 Manual Muscle Testing Right 3 Manual Muscle Testing Anterior 0 Manual Muscle Testing Posterior 3 Muscle Endurance (Seconds) 10 Number of Quick Contractions In 10 9 Seconds Comments Pelvic Floor Comments Pt able to relax the PF but requires conscientious awareness to relax. Endurance contractioin: Uncoordinated with no inward pull noted. PT-OP-J Posture/Palpation/Skin Start: 03/26/21 18:37 Freq: Status: Active Protocol: Document 04/06/21 08:16 LRN (Rec: 04/06/21 09:48 LRN [id number]) Posture Evaluation Position Standing Head/C-Spine Posture Forward Head T-Spine Posture Flattened L-Spine Posture Increased Lordosis Pelvis Posture Anteriorly Tilted,(L) Rotated Anterior,(R) Rotated Anterior Weight Distribution Balanced Comments Posture Comments Wide stance. PT-OP-K Range of Motion Start: 03/26/21 18:37 Freq: Status: Active Protocol: Document 04/06/21 08:16 LRN (Rec: 04/06/21 09:48 LRN [id number]) Lumbar Spine Range of Motion Lumbar Spine Active Percentage Flexion 90 ROM Limitations Soft Tissue Tightness Comments 100% except as indicated above . Hip Goniometric Range of Motion Hip Right Passive Testing Position Supine Straight Leg Raise 75 Abduction 20 Internal Rotation 45 External Rotation 65 Comments Decr IR Left Passive Testing Position Supine Straight Leg Raise 75 Abduction 28 Internal Rotation 45 External Rotation 55 Comments Decreased ER & IR Hip ROM Limitations Comments Pt had urgency after ROM testing of hip AD's PT-OP-M Strength Start: 03/26/21 18:37 Freq: Status: Active Protocol: Document 04/06/21 08:16 LRN (Rec: 04/06/21 09:48 LRN [id number]) Trunk Strength Trunk Manual Muscle Testing Flexion 3 Fair Rotation Left 3- Fair- Rotation Right 3- Fair- Core Stabilization Loss of stab with LE MMT of flexion and AB bilaterally. Hip Strength Hip Manual Muscle Testing Right Flexion (L2) 3 Fair Extension (S1) 2+ Poor+ Abduction 5 Normal Adduction 5 Normal External Rotation 3 Fair Internal Rotation 3 Fair Left Flexion (L2) 3 Fair Extension (S1) 2+ Poor+ Abduction 5 Normal Adduction 5 Normal External Rotation 3 Fair Internal Rotation 3 Fair PT-OP-Q Treatments Start: 03/26/21 18:37 Freq: Status: Active Protocol: Document 04/12/21 11:27 LRN (Rec: 04/12/21 12:19 LRN [id number]) Self-Care/Home Management Treatment Education Other Education Reviewed bladder diary f/b the following discussions: Education in norms of bladder habits and recommendations of areas that pt may improve. Discussed at length drinking habits of coffee and other bladder irritants (sugar, carbinated drinks). Educated at length Urge deference technique with long discussion of varying factors associated with timing and technique to use (special case of pt's AM vs PM due to choice of drinking coffee in AM). Educated pt in changes in bladder response based on fluids intake. Briefly discussed bladder retraining. Addressed pt's questions regarding urinary leakage/PF strengthening as related to caffeine use and alternatives for improving cognition (ex - increase sleep, natural simulants - exercise & over the counter oils that are physician approved). Activities Self-Care/Home Management Activities Issued & reviewed HEP: Deep Breathing & Urge deference technique & bladder retraining protocol. PT-OP-T Assessment and Plan Start: 03/26/21 18:37 Freq: Status: Active Protocol: Document 04/12/21 11:27 LRN (Rec: 04/12/21 12:19 LRN [id number]) Physical Therapy Assessment Goals Four Impairment Decreased awareness of performing a proper PF contraction. Short Term Goal (STG) Improve awareness of a proper PF contraction STG Duration 03/22/21 Assisted Goal (LTG) Pt will be aware of the sensation of a proper PF contraction. LTG: Pt will be able to isolate a PF contraction without overuse of the outer abdominal muscles, hip AD?s muscles, and gluteal muscles. LTG Duration 07/05/21 Three Impairment Urinary incontinence with a strong urge & increased activity Short Term Goal (STG) Pt will be able to return to exercise in an exercise gym without fear of urinary leakage. STG Duration 06/01/21 Bridge Construction Inspector Goal (LTG) Pt will be able to return to ride a bike without fear of urinary leakage. LTG Duration 07/05/21 Two Impairment Urinary incontinence Short Term Goal (STG) Pt will not have to change clothes 2-3x/week. STG Duration 05/04/21 Bridge Construction Inspector Goal (LTG) Pt will feel she has an option of having sex without fear of unmanageable urinary leakage the day after. LTG Duration 07/05/21 One Impairment Pt lacks appropriate self care HEP. Short Term Goal (STG) Pt will be independent with a HEP of hip stretches for hip flexors, hamstrings, & hip rotators. (Initially: decreased L hip mobility (in deg's): PSLR: 75 deg's bilaterally; IR 45 deg's bilaterally; ER 55 L, 65 R; AB 28 L, 20 R). Assisted Goal (LTG) Pt educated in self care HEP including appropriate PF exercises and hip mobility exercises (PSLR, hip rotation and AB mobility). LTG Duration 07/05/21 Assessment Summary Assessment Per bladder diary review the pt shows increased voiding every hour after caffeine consumption in the AM; voiding was less in PM with drinking of maily water. Pt urinary leakage was typically 3-4x/day and fairly consistently late at night before bed; therefore urgency/eakage during the day appears to be due to caffeine , and in evening may be habitual that may be helped with bladder retraining. The pt sometimes leaks in the middle of the night with voiding with long urinary times; therefore may be more related to PF weakness. PF strengthening and bladder retraining needed. Physical Therapy Plan Frequency and Duration Frequency of Treatment 1x/Week Plan of Care Start Date 04/06/21 Plan of Care End Date 07/05/21 Next Visit Focus/Plan Next Note Type Treatment Note Next Visit Plan Review results of urge deference technique on reducing urinary leakage. Review Deep Breathing. Biofeedback assessment with vaginal/rectal/surface sensor( s) and use of E-stim for PF awareness training for proper/ coordinated PF contraction. Educate in proper Kegel without use of substitute muscles, pt education in proper perineum care, and transfers/proper breathing, PF /core/hip strengthening, improve hip mobility. Rehab for mixed urinary incontinence with focus on urge incontinence.
--- NOTE | 2021-04-17 15:47 | PT.OTN ---
Current Diagnoses Muscle weakness (generalized) (04/17/21) Mixed incontinence (04/17/21) Other specified urinary incontinence (04/17/21) Other specified symptoms and signs involving the digestive system and abdomen (04/17/21) Abnormal posture (04/17/21) Physical Therapy Treatment Note PT-OP-A Visit Information Start: 03/26/21 18:37 Freq: Status: Active Protocol: Document 04/17/21 14:22 LRN (Rec: 04/17/21 15:46 LRN [id number]) Out-Patient Physical Therapy Visit Information Visit Information Visit Type Treatment Note Visit Start Time 14:22 Visit Stop Time 15:12 Total Visit Minutes 50 Visit Number 3 Evaluation Information Evaluation Date 04/06/21 Precautions Precautions [facility] in shoulder blades - 12/21, Heart attack 2012. Pt noted in her teens she had negative experience with incorrect boundries by a health provider. PT-OP-B Current Condition Start: 03/26/21 18:37 Freq: Status: Active Protocol: Document 04/06/21 08:16 LRN (Rec: 04/06/21 09:48 LRN [id number]) Current Condition History of Current Condition Onset Date Worsened gradually since late 's. Current Complaints Urgency History of Current Condition Pt states she has primary problem of urgency and has noted increased frequency. She has tried estrogen treatment for her problem, but didn't find it helpful. Her urinary urgency started in her 20's and has gradually worsened since her late 30's. She is sometimes has total loss of urinary control and is most noticeable when approaching her house. She has to change clothes a couple times a week due to total loss of control. Incontinence comes after intercourse the day after; therefore she is no longer sexually active. Has studied iatrogenic problems for her urgency and is not taking cranberry tablets and Uvaursi (over the counter pill). Pt is a retired Psychotherapist. Prior Treatments and Tests Estrogen treatment used by Dr. Vizcarra didn't help. Currently taking Oxybutryn, cranberry tablets, Uvaursi, and estogen suppositories. Developmental History Developmental History Urinary urgency started in 20' s when became sexually active and with use of IUD. Was diagnosed with urinary urgency worsened in late 30's. At some point pt was diagnosed with cystitis & had hysterectomy with 1 ovary removed. Uses estrogen insert . No longer sexually active because of urinary leakage after intercourse. Has had bladder pain and pelvic floor pain after sex ( diagnosed with cystitis) - drinking cranberry juice helped (anti-bitics didn't help). Now has urgency and some frequency. As approach house urgency gets worse. Treatment Goals Patient/Caregiver Goals Pt goal is to not change clothes, and to be able to: exercise, ride bike, and have option of having sex. Prior Functional Status Baseline Function- ADL's Independent Baseline Function- Mobility Independent Baseline Function- Other Urgency - some control of urine. Current Functional Impairments (Reported) Functional Limitations- ADL's Doesn't walk [place] Not able to ride bike Not lifting weights Doesn't have sex Functional Limitations- Other Urgency, w/o medications, the urine poors out. Lack of control - not able to stop urine flow. Personal Factors Other Personal Factors That May Effect In her teens she had negative Therapy/Recovery experience with incorrect boundries by a health provider . Heart attack 2012. PT-OP-C Subjective Start: 03/26/21 18:37 Freq: Status: Active Protocol: Document 04/17/21 14:22 LRN (Rec: 04/17/21 15:46 LRN [id number]) OP-PT Subjective Patient Comments Patient Comments ..... PT-OP-I Pelvic Floor Start: 03/26/21 18:37 Freq: Status: Active Protocol: Document 04/06/21 08:16 LRN (Rec: 04/06/21 09:48 LRN [id number]) Pelvic Floor Assessment Urine Pelvic Floor Surgery No: Had hyste to remove 1 ovary Urinary Symptoms Urge Sensation,Dribbling After Urination,Incomplete Emptying Other Urinary Symptoms Hard to start stream. Leakage Size Large Leakage Cause Cough,Exercise,Lifting,Sneeze, Urge Other Leakage Causes Leakage is small. Unlocking house. Major leaking 2x/week. Leaks Per Day 2 Voiding Frequency 10 Nocturia 2-3 Pads Used In 24 Hours 1 Urine Pad Type Panty Liner Bowel Bowel Symptoms Uncontrolled Flatulence Other Bowel Symptoms Bowel surgery - 1984 due to fissure, removed and sewed up tissues fragile and took 1 yr to heal. Corrected due to pain. Bowel Movement Frequency 1x/day [place] Stool Chart Type 1-7 4 [place] Stool Chart Comments type of stool 4 & 5 Prolapse Cystocele Grade 2 Contraction Ability Voluntary Contraction Moderate Manual Muscle Testing Left 2 Manual Muscle Testing Right 3 Manual Muscle Testing Anterior 0 Manual Muscle Testing Posterior 3 Muscle Endurance (Seconds) 10 Number of Quick Contractions In 10 9 Seconds Comments Pelvic Floor Comments Pt able to relax the PF but requires conscientious awareness to relax. Endurance contractioin: Uncoordinated with no inward pull noted. PT-OP-J Posture/Palpation/Skin Start: 03/26/21 18:37 Freq: Status: Active Protocol: Document 04/06/21 08:16 LRN (Rec: 04/06/21 09:48 LRN [id number]) Posture Evaluation Position Standing Head/C-Spine Posture Forward Head T-Spine Posture Flattened L-Spine Posture Increased Lordosis Pelvis Posture Anteriorly Tilted,(L) Rotated Anterior,(R) Rotated Anterior Weight Distribution Balanced Comments Posture Comments Wide stance. PT-OP-K Range of Motion Start: 03/26/21 18:37 Freq: Status: Active Protocol: Document 04/06/21 08:16 LRN (Rec: 04/06/21 09:48 LRN [id number]) Lumbar Spine Range of Motion Lumbar Spine Active Percentage Flexion 90 ROM Limitations Soft Tissue Tightness Comments 100% except as indicated above . Hip Goniometric Range of Motion Hip Right Passive Testing Position Supine Straight Leg Raise 75 Abduction 20 Internal Rotation 45 External Rotation 65 Comments Decr IR Left Passive Testing Position Supine Straight Leg Raise 75 Abduction 28 Internal Rotation 45 External Rotation 55 Comments Decreased ER & IR Hip ROM Limitations Comments Pt had urgency after ROM testing of hip AD's PT-OP-M Strength Start: 03/26/21 18:37 Freq: Status: Active Protocol: Document 04/06/21 08:16 LRN (Rec: 04/06/21 09:48 LRN [id number]) Trunk Strength Trunk Manual Muscle Testing Flexion 3 Fair Rotation Left 3- Fair- Rotation Right 3- Fair- Core Stabilization Loss of stab with LE MMT of flexion and AB bilaterally. Hip Strength Hip Manual Muscle Testing Right Flexion (L2) 3 Fair Extension (S1) 2+ Poor+ Abduction 5 Normal Adduction 5 Normal External Rotation 3 Fair Internal Rotation 3 Fair Left Flexion (L2) 3 Fair Extension (S1) 2+ Poor+ Abduction 5 Normal Adduction 5 Normal External Rotation 3 Fair Internal Rotation 3 Fair PT-OP-Q Treatments Start: 03/26/21 18:37 Freq: Status: Active Protocol: Document 04/17/21 14:22 LRN (Rec: 04/17/21 15:46 LRN [id number]) Therapeutic Exercises Supine Exercises Kegel for awareness/relaxation Supine Exercise Name Kegel awareness & relaxation Reps/Minutes 10' Comments Reviewed with handout and much v. cuing for relaxation Deep Breathing Supine Exercise Name Deep Breathing review Reps/Minutes 2' Comments Initial v. cuing reminder of breathing over 5-6 sec period. Hip ER stretch Supine Exercise Name Fig 4 stretch, f/t active stretch Side bilateral Reps/Minutes 8' Comments Pt needed phys cuing for active stretch. Self-Care/Home Management Treatment Education Patient Education Home Exercise Program Other Education Discussed pt changes: increase fluid intake, decreased coffee (less than 1/ 3 of what drank before), stopped Uvaursi (because bad for kidney) started using stationary ex bike. Discussed at length & educated pt on negative aspects of being on bike (sitting posture/ placement and proper breathing ). Discussed other form of exercise like walking and how gait, posture, and mechanical dysfunctions in LE/trunk can affect PF function. Discussed briefly pt stess at home. Discussed at length my request for pt to follow up with physician regarding soft tissue of vaginal canal on L side and listened to pt's concern over vaginal exams. Activities Self-Care/Home Management Activities Issued handout for Kegel ex's for pt to do a few during day to have awareness of PF ms relaxation. PT-OP-T Assessment and Plan Start: 03/26/21 18:37 Freq: Status: Active Protocol: Document 04/17/21 14:22 LRN (Rec: 04/17/21 15:46 LRN [id number]) Physical Therapy Assessment Goals Four Impairment Decreased awareness of performing a proper PF contraction. Short Term Goal (STG) Improve awareness of a proper PF contraction STG Duration 03/22/21 Manager Risk Management Goal (LTG) Pt will be aware of the sensation of a proper PF contraction. LTG: Pt will be able to isolate a PF contraction without overuse of the outer abdominal muscles, hip AD?s muscles, and gluteal muscles. LTG Duration 07/05/21 Three Impairment Urinary incontinence with a strong urge & increased activity Short Term Goal (STG) Pt will be able to return to exercise in an exercise gym without fear of urinary leakage. STG Duration 06/01/21 Manager Risk Management Goal (LTG) Pt will be able to return to ride a bike without fear of urinary leakage. LTG Duration 07/05/21 Two Impairment Urinary incontinence Short Term Goal (STG) Pt will not have to change clothes 2-3x/week. STG Duration 05/04/21 Detention Goal (LTG) Pt will feel she has an option of having sex without fear of unmanageable urinary leakage the day after. LTG Duration 07/05/21 One Impairment Pt lacks appropriate self care HEP. Short Term Goal (STG) Pt will be independent with a HEP of hip stretches for hip flexors, hamstrings, & hip rotators. (Initially: decreased L hip mobility (in deg's): PSLR: 75 deg's bilaterally; IR 45 deg's bilaterally; ER 55 L, 65 R; AB 28 L, 20 R). (04/17/21: I/S Hip ER stretch for HEP) STG Duration 05/04/21 (04/17/21: Progressed) Manager Risk Management Goal (LTG) Pt educated in self care HEP including appropriate PF exercises and hip mobility exercises (PSLR, hip rotation and AB mobility). (04/17/21: I/S Hip ER stretch for HEP) LTG Duration 07/05/21 (04/17/21: Progressed) Assessment Summary Assessment Urge incontinence and lesser degree stress incontinence. Pt has previously identified, tightness of PF with pain in the R lateral wall (6-9 of PF clock) and weakness/swelling in the tissue in the L lateral wall (2-3 of the PF clock) and weakness/swelling in the tissue in the L lateral wall ( 2-3 of the PF clock) that still needs to be checked by referring physician. Pt notes stress at home; therefore progress is expected to be slow. Pt had discomfort in PF after stretching hip ER's; therefore EMG biofeedback assessment with vaginal electrode may be difficulty. Pt choosing to continue with caffeine consumption; therefore her bladder diary shows increased frequency of voiding in AM, but improved frequency to more normal voiding in PM. Pt has consistent voiding/leakage in late evening (10 pm) with brushing of teeth that may be changed with bladder training. Pt co-morbidities (IC, experiences as youth, etc...) hinder her progress as well. Much time needed today to discuss with pt her condition and allow pt to voice concerns and ask questions regarding PF health and exercise. Physical Therapy Plan Frequency and Duration Frequency of Treatment 1x/Week Plan of Care Start Date 04/06/21 Plan of Care End Date 07/05/21 Next Visit Focus/Plan Next Note Type Treatment Note Next Visit Plan Consider biofeedback assessment with vaginal/rectal /surface sensor(s) and use of E-stim for PF awareness training for ms relaxation. Possibly 1 time training for proper/coordinated PF contraction (avoid creating possible Pelvic pain with strengthening). Possible use of dilator after pt follow up with physician for bulge in perineum. Review proper Kegel without use of substitute muscles, pt education in proper perineum care, and transfers/proper breathing, improve hip ROM, check for need of PF/core/hip strengthening. Rehab for mixed urinary incontinence with focus on urge incontinence.
--- NOTE | 2021-04-27 16:41 | PT.OTN ---
Current Diagnoses Muscle weakness (generalized) (04/27/21) Mixed incontinence (04/27/21) Other specified urinary incontinence (04/27/21) Other specified symptoms and signs involving the digestive system and abdomen (04/27/21) Abnormal posture (04/27/21) Physical Therapy Treatment Note PT-OP-A Visit Information Start: 03/26/21 18:37 Freq: Status: Active Protocol: Document 04/27/21 12:49 LRN (Rec: 04/27/21 13:36 LRN [id number]) Out-Patient Physical Therapy Visit Information Visit Information Visit Type Treatment Note Visit Start Time 12:49 Visit Stop Time 13:29 Total Visit Minutes 40 Visit Number 4 Evaluation Information Evaluation Date 04/06/21 Precautions Precautions [facility] in shoulder blades - 12/21, Heart attack 2012. Pt noted in her teens she had negative experience with incorrect boundries by a health provider. PT-OP-B Current Condition Start: 03/26/21 18:37 Freq: Status: Active Protocol: Document 04/06/21 08:16 LRN (Rec: 04/06/21 09:48 LRN [id number]) Current Condition History of Current Condition Onset Date Worsened gradually since late s. Current Complaints Urgency History of Current Condition Pt states she has primary problem of urgency and has noted increased frequency. She has tried estrogen treatment for her problem, but didn't find it helpful. Her urinary urgency started in her 20's and has gradually worsened since her late 30's. She is sometimes has total loss of urinary control and is most noticeable when approaching her house. She has to change clothes a couple times a week due to total loss of control. Incontinence comes after intercourse the day after; therefore she is no longer sexually active. Has studied iatrogenic problems for her urgency and is not taking cranberry tablets and Uvaursi (over the counter pill). Pt is a retired Psychotherapist. Prior Treatments and Tests Estrogen treatment used by Dr. Vizcarra didn't help. Currently taking Oxybutryn, cranberry tablets, Uvaursi, and estogen suppositories. Developmental History Developmental History Urinary urgency started in 20' s when became sexually active and with use of IUD. Was diagnosed with urinary urgency worsened in late 30's. At some point pt was diagnosed with cystitis & had hysterectomy with 1 ovary removed. Uses estrogen insert . No longer sexually active because of urinary leakage after intercourse. Has had bladder pain and pelvic floor pain after sex ( diagnosed with cystitis) - drinking cranberry juice helped (anti-bitics didn't help). Now has urgency and some frequency. As approach house urgency gets worse. Treatment Goals Patient/Caregiver Goals Pt goal is to not change clothes, and to be able to: exercise, ride bike, and have option of having sex. Prior Functional Status Baseline Function- ADL's Independent Baseline Function- Mobility Independent Baseline Function- Other Urgency - some control of urine. Current Functional Impairments (Reported) Functional Limitations- ADL's Doesn't walk [place] Not able to ride bike Not lifting weights Doesn't have sex Functional Limitations- Other Urgency, w/o medications, the urine poors out. Lack of control - not able to stop urine flow. Personal Factors Other Personal Factors That May Effect In her teens she had negative Therapy/Recovery experience with incorrect boundries by a health provider . Heart attack 2012. PT-OP-C Subjective Start: 03/26/21 18:37 Freq: Status: Active Protocol: Document 04/27/21 12:49 LRN (Rec: 04/27/21 13:36 LRN [id number]) OP-PT Subjective Patient Comments Patient Comments Pt has quiestions. States she is drinking a lot more water and she feels better. States decrease in caffeine has affected her GI and now she has to eat more prunes. Able to go longer without urinating and urination time is long. States she used distraction to defer urination. PT-OP-I Pelvic Floor Start: 03/26/21 18:37 Freq: Status: Active Protocol: Document 04/06/21 08:16 LRN (Rec: 04/06/21 09:48 LRN [id number]) Pelvic Floor Assessment Urine Pelvic Floor Surgery No: Had hyste to remove 1 ovary Urinary Symptoms Urge Sensation,Dribbling After Urination,Incomplete Emptying Other Urinary Symptoms Hard to start stream. Leakage Size Large Leakage Cause Cough,Exercise,Lifting,Sneeze, Urge Other Leakage Causes Leakage is small. Unlocking house. Major leaking 2x/week. Leaks Per Day 2 Voiding Frequency 10 Nocturia 2-3 Pads Used In 24 Hours 1 Urine Pad Type Panty Liner Bowel Bowel Symptoms Uncontrolled Flatulence Other Bowel Symptoms Bowel surgery - 1984 due to fissure, removed and sewed up tissues fragile and took 1 yr to heal. Corrected due to pain. Bowel Movement Frequency 1x/day [place] Stool Chart Type 1-7 4 [place] Stool Chart Comments type of stool 4 & 5 Prolapse Cystocele Grade 2 Contraction Ability Voluntary Contraction Moderate Manual Muscle Testing Left 2 Manual Muscle Testing Right 3 Manual Muscle Testing Anterior 0 Manual Muscle Testing Posterior 3 Muscle Endurance (Seconds) 10 Number of Quick Contractions In 10 9 Seconds Comments Pelvic Floor Comments Pt able to relax the PF but requires conscientious awareness to relax. Endurance contractioin: Uncoordinated with no inward pull noted. PT-OP-J Posture/Palpation/Skin Start: 03/26/21 18:37 Freq: Status: Active Protocol: Document 04/06/21 08:16 LRN (Rec: 04/06/21 09:48 LRN [id number]) Posture Evaluation Position Standing Head/C-Spine Posture Forward Head T-Spine Posture Flattened L-Spine Posture Increased Lordosis Pelvis Posture Anteriorly Tilted,(L) Rotated Anterior,(R) Rotated Anterior Weight Distribution Balanced Comments Posture Comments Wide stance. PT-OP-K Range of Motion Start: 03/26/21 18:37 Freq: Status: Active Protocol: Document 04/06/21 08:16 LRN (Rec: 04/06/21 09:48 LRN [id number]) Lumbar Spine Range of Motion Lumbar Spine Active Percentage Flexion 90 ROM Limitations Soft Tissue Tightness Comments 100% except as indicated above . Hip Goniometric Range of Motion Hip Right Passive Testing Position Supine Straight Leg Raise 75 Abduction 20 Internal Rotation 45 External Rotation 65 Comments Decr IR Left Passive Testing Position Supine Straight Leg Raise 75 Abduction 28 Internal Rotation 45 External Rotation 55 Comments Decreased ER & IR Hip ROM Limitations Comments Pt had urgency after ROM testing of hip AD's PT-OP-M Strength Start: 03/26/21 18:37 Freq: Status: Active Protocol: Document 04/06/21 08:16 LRN (Rec: 04/06/21 09:48 LRN [id number]) Trunk Strength Trunk Manual Muscle Testing Flexion 3 Fair Rotation Left 3- Fair- Rotation Right 3- Fair- Core Stabilization Loss of stab with LE MMT of flexion and AB bilaterally. Hip Strength Hip Manual Muscle Testing Right Flexion (L2) 3 Fair Extension (S1) 2+ Poor+ Abduction 5 Normal Adduction 5 Normal External Rotation 3 Fair Internal Rotation 3 Fair Left Flexion (L2) 3 Fair Extension (S1) 2+ Poor+ Abduction 5 Normal Adduction 5 Normal External Rotation 3 Fair Internal Rotation 3 Fair PT-OP-Q Treatments Start: 03/26/21 18:37 Freq: Status: Active Protocol: Document 04/27/21 12:49 LRN (Rec: 04/27/21 13:36 LRN [id number]) Self-Care/Home Management Treatment Education Patient Education Home Exercise Program Other Education Answered multiple questions pt had regarding PH of bladder, and glucose vs sugar tolerance one more than other. Also to get off oxybuteryn. Discussed use of vaginal/ rectal electrode for biofeedback, but pt decided to not use. Educated discussed different lubricants with recommendations given. Reviewed briefly pt's bladder diary and recommended pt not go > 4hrs without voiding and if routine becomes every 2 hrs , then bladder retraining can start. Activities Self-Care/Home Management Activities Issued XS dilator with extensive instructions on how to use. Pt to not use quick flics for delay technique unless needing to get to BR without leaking, otherwise pt is to listen to her bladder and go, avoiding increasing PF tension. Pt practice PF relaxation after contraction. PT-OP-T Assessment and Plan Start: 03/26/21 18:37 Freq: Status: Active Protocol: Document 04/27/21 12:49 LRN (Rec: 04/27/21 13:36 LRN [id number]) Physical Therapy Assessment Goals Four Impairment Decreased awareness of performing a proper PF contraction. Short Term Goal (STG) Improve awareness of a proper PF contraction STG Duration 03/22/21 Pattern Vault Clerk Goal (LTG) Pt will be aware of the sensation of a proper PF contraction. LTG: Pt will be able to isolate a PF contraction without overuse of the outer abdominal muscles, hip AD?s muscles, and gluteal muscles. LTG Duration 07/05/21 Three Impairment Urinary incontinence with a strong urge & increased activity Short Term Goal (STG) Pt will be able to return to exercise in an exercise gym without fear of urinary leakage. STG Duration 06/01/21 Pattern Vault Clerk Goal (LTG) Pt will be able to return to ride a bike without fear of urinary leakage. LTG Duration 07/05/21 Two Impairment Urinary incontinence Short Term Goal (STG) Pt will not have to change clothes 2-3x/week. STG Duration 05/04/21 Pattern Vault Clerk Goal (LTG) Pt will feel she has an option of having sex without fear of unmanageable urinary leakage the day after. LTG Duration 07/05/21 One Impairment Pt lacks appropriate self care HEP. Short Term Goal (STG) Pt will be independent with a HEP of hip stretches for hip flexors, hamstrings, & hip rotators. (Initially: decreased L hip mobility (in deg's): PSLR: 75 deg's bilaterally; IR 45 deg's bilaterally; ER 55 L, 65 R; AB 28 L, 20 R). (04/17/21: I/S Hip ER stretch for HEP) STG Duration 05/04/21 (04/17/21: Progressed) Fpc Goal (LTG) Pt educated in self care HEP including appropriate PF exercises and hip mobility exercises (PSLR, hip rotation and AB mobility). (04/17/21: I/S Hip ER stretch for HEP) LTG Duration 07/05/21 (04/17/21: Progressed) Assessment Summary Assessment Pt is very apprehensive about using EMG biofeedback due to size of vaginal and rectal electrodes. She is apprehensive with allowing PF stretch with dilator by PT. Pt appears to have good understanding of stretching just the PF, not areas beyond PF muscles (area of bulge) after using model and extensive training. Pt confusion on contacting physician regarding PF assessment and is very hesitant to make appt with referring physician. Physical Therapy Plan Frequency and Duration Frequency of Treatment 1x/Week Plan of Care Start Date 04/06/21 Plan of Care End Date 07/05/21 Next Visit Focus/Plan Next Note Type Treatment Note Next Visit Plan Possible use of dilator after pt follow up with physician for bulge in perineum. Review proper Kegel without use of substitute muscles, pt education in proper perineum care, and transfers/proper breathing, improve hip ROM, check for need of PF/core/hip strengthening. Rehab for mixed urinary incontinence with focus on urge incontinence. If pt not making progress: Consider biofeedback assessment with rectal probe, but not use of E -Stim unless seen by physician .
--- NOTE | 2021-05-11 15:46 | PT.OTN ---
Current Diagnoses Muscle weakness (generalized) (05/11/21) Mixed incontinence (05/11/21) Other specified urinary incontinence (05/11/21) Other specified symptoms and signs involving the digestive system and abdomen (05/11/21) Abnormal posture (05/11/21) Physical Therapy Treatment Note PT-OP-A Visit Information Start: 03/26/21 18:37 Freq: Status: Active Protocol: Document 05/11/21 14:23 LRN (Rec: 05/11/21 15:21 LRN [id number]) Out-Patient Physical Therapy Visit Information Visit Information Visit Type Treatment Note Visit Start Time 14:23 Visit Stop Time 15:03 Total Visit Minutes 40 Visit Number 5 Evaluation Information Evaluation Date 04/06/21 Precautions Precautions [facility] in shoulder blades - 12/21, Heart attack 2012. Pt noted in her teens she had negative experience with incorrect boundries by a health provider. PT-OP-B Current Condition Start: 03/26/21 18:37 Freq: Status: Active Protocol: Document 04/06/21 08:16 LRN (Rec: 04/06/21 09:48 LRN [id number]) Current Condition History of Current Condition Onset Date Worsened gradually since late 's. Current Complaints Urgency History of Current Condition Pt states she has primary problem of urgency and has noted increased frequency. She has tried estrogen treatment for her problem, but didn't find it helpful. Her urinary urgency started in her 20's and has gradually worsened since her late 30's. She is sometimes has total loss of urinary control and is most noticeable when approaching her house. She has to change clothes a couple times a week due to total loss of control. Incontinence comes after intercourse the day after; therefore she is no longer sexually active. Has studied iatrogenic problems for her urgency and is not taking cranberry tablets and Uvaursi (over the counter pill). Pt is a retired Psychotherapist. Prior Treatments and Tests Estrogen treatment used by Dr. Vizcarra didn't help. Currently taking Oxybutryn, cranberry tablets, Uvaursi, and estogen suppositories. Developmental History Developmental History Urinary urgency started in 20' s when became sexually active and with use of IUD. Was diagnosed with urinary urgency worsened in late 30's. At some point pt was diagnosed with cystitis & had hysterectomy with 1 ovary removed. Uses estrogen insert . No longer sexually active because of urinary leakage after intercourse. Has had bladder pain and pelvic floor pain after sex ( diagnosed with cystitis) - drinking cranberry juice helped (anti-bitics didn't help). Now has urgency and some frequency. As approach house urgency gets worse. Treatment Goals Patient/Caregiver Goals Pt goal is to not change clothes, and to be able to: exercise, ride bike, and have option of having sex. Prior Functional Status Baseline Function- ADL's Independent Baseline Function- Mobility Independent Baseline Function- Other Urgency - some control of urine. Current Functional Impairments (Reported) Functional Limitations- ADL's Doesn't walk [place] Not able to ride bike Not lifting weights Doesn't have sex Functional Limitations- Other Urgency, w/o medications, the urine poors out. Lack of control - not able to stop urine flow. Personal Factors Other Personal Factors That May Effect In her teens she had negative Therapy/Recovery experience with incorrect boundries by a health provider . Heart attack 2012. PT-OP-C Subjective Start: 03/26/21 18:37 Freq: Status: Active Protocol: Document 05/11/21 14:23 LRN (Rec: 05/11/21 15:21 LRN [id number]) OP-PT Subjective Patient Comments Patient Comments OBGYN check with Dr Nimco Mac (). Doing stretching with dilator and has been almost continent. Used dilator this morning and is having urgency. States she is aware of PF contractions f/b relaxation. States she is able to ride an elevator without urinary leakage. PT-OP-I Pelvic Floor Start: 03/26/21 18:37 Freq: Status: Active Protocol: Document 04/06/21 08:16 LRN (Rec: 04/06/21 09:48 LRN [id number]) Pelvic Floor Assessment Urine Pelvic Floor Surgery No: Had hyste to remove 1 ovary Urinary Symptoms Urge Sensation,Dribbling After Urination,Incomplete Emptying Other Urinary Symptoms Hard to start stream. Leakage Size Large Leakage Cause Cough,Exercise,Lifting,Sneeze, Urge Other Leakage Causes Leakage is small. Unlocking house. Major leaking 2x/week. Leaks Per Day 2 Voiding Frequency 10 Nocturia 2-3 Pads Used In 24 Hours 1 Urine Pad Type Panty Liner Bowel Bowel Symptoms Uncontrolled Flatulence Other Bowel Symptoms Bowel surgery - 1984 due to fissure, removed and sewed up tissues fragile and took 1 yr to heal. Corrected due to pain. Bowel Movement Frequency 1x/day [place] Stool Chart Type 1-7 4 [place] Stool Chart Comments type of stool 4 & 5 Prolapse Cystocele Grade 2 Contraction Ability Voluntary Contraction Moderate Manual Muscle Testing Left 2 Manual Muscle Testing Right 3 Manual Muscle Testing Anterior 0 Manual Muscle Testing Posterior 3 Muscle Endurance (Seconds) 10 Number of Quick Contractions In 10 9 Seconds Comments Pelvic Floor Comments Pt able to relax the PF but requires conscientious awareness to relax. Endurance contractioin: Uncoordinated with no inward pull noted. PT-OP-J Posture/Palpation/Skin Start: 03/26/21 18:37 Freq: Status: Active Protocol: Document 04/06/21 08:16 LRN (Rec: 04/06/21 09:48 LRN [id number]) Posture Evaluation Position Standing Head/C-Spine Posture Forward Head T-Spine Posture Flattened L-Spine Posture Increased Lordosis Pelvis Posture Anteriorly Tilted,(L) Rotated Anterior,(R) Rotated Anterior Weight Distribution Balanced Comments Posture Comments Wide stance. PT-OP-K Range of Motion Start: 03/26/21 18:37 Freq: Status: Active Protocol: Document 04/06/21 08:16 LRN (Rec: 04/06/21 09:48 LRN [id number]) Lumbar Spine Range of Motion Lumbar Spine Active Percentage Flexion 90 ROM Limitations Soft Tissue Tightness Comments 100% except as indicated above . Hip Goniometric Range of Motion Hip Right Passive Testing Position Supine Straight Leg Raise 75 Abduction 20 Internal Rotation 45 External Rotation 65 Comments Decr IR Left Passive Testing Position Supine Straight Leg Raise 75 Abduction 28 Internal Rotation 45 External Rotation 55 Comments Decreased ER & IR Hip ROM Limitations Comments Pt had urgency after ROM testing of hip AD's PT-OP-M Strength Start: 03/26/21 18:37 Freq: Status: Active Protocol: Document 04/06/21 08:16 LRN (Rec: 04/06/21 09:48 LRN [id number]) Trunk Strength Trunk Manual Muscle Testing Flexion 3 Fair Rotation Left 3- Fair- Rotation Right 3- Fair- Core Stabilization Loss of stab with LE MMT of flexion and AB bilaterally. Hip Strength Hip Manual Muscle Testing Right Flexion (L2) 3 [place] Extension (S1) 2+ Poor+ Abduction 5 Normal Adduction 5 Normal External Rotation 3 Fair Internal Rotation 3 Fair Left Flexion (L2) 3 Fair Extension (S1) 2+ Poor+ Abduction 5 Normal Adduction 5 Normal External Rotation 3 Fair Internal Rotation 3 Fair PT-OP-Q Treatments Start: 03/26/21 18:37 Freq: Status: Active Protocol: Document 05/11/21 14:23 LRN (Rec: 05/11/21 15:21 LRN [id number]) Therapeutic Exercises Supine Exercises Iliopsoas Stretch Supine Exercise Name Iliopsoas Stretch Side bilateral Reps/Minutes 4' Comments V. cuing for positioning DKTC stretch Supine Exercise Name DKTC stretch Reps/Minutes 2' Comments Pt familiar with stretch Lateral Hip stretch Supine Exercise Name Lateral Hip stretch Side bilateral Reps/Minutes 4' Comments Phys & v cuing to do ex Piriformis stretch Supine Exercise Name Piriformis stretch Side bilateral Reps/Minutes 4' Comments Phys & v cuing to do ex Happy Baby Pose Supine Exercise Name Happy Baby Pose Reps/Minutes 3' Comments Phys & v cuing to do ex Hip ER stretch Supine Exercise Name Fig 4 stretch, f/t active stretch Side bilateral Reps/Minutes 8' Comments Pt needed phys cuing for active stretch. Prone Exercises Abdominal stretch Prone Exercise Name Prone on elbows Reps/Minutes 3' Comments v cuing with extra time to determine best positioning for stretch Self-Care/Home Management Treatment Education Other Education Educated pt in progression of use of PF stretching and use of dilator. Discussed/ recommended pt obtain dilator set to get greater stretch for improving comfort with sexual intercourse. PT-OP-T Assessment and Plan Start: 03/26/21 18:37 Freq: Status: Active Protocol: Document 05/11/21 14:23 LRN (Rec: 05/11/21 15:21 LRN [id number]) Physical Therapy Assessment Goals Four Impairment Decreased awareness of performing a proper PF contraction. Short Term Goal (STG) Improve awareness of a proper PF contraction STG Duration 03/22/21 Fdc Goal (LTG) Pt will be aware of the sensation of a proper PF contraction. LTG: Pt will be able to isolate a PF contraction without overuse of the outer abdominal muscles, hip AD?s muscles, and gluteal muscles. LTG Duration 07/05/21 Three Impairment Urinary incontinence with a strong urge & increased activity Short Term Goal (STG) Pt will be able to return to exercise in an exercise gym without fear of urinary leakage. (05/11/21: Pt ready to return to gym for ex) STG Duration 06/01/21 Dance Director Goal (LTG) Pt will be able to return to ride a bike without fear of urinary leakage. LTG Duration 07/05/21 Two Impairment Urinary incontinence Short Term Goal (STG) Pt will not have to change clothes 2-3x/week. STG Duration 05/04/21 Dance Director Goal (LTG) Pt will feel she has an option of having sex without fear of unmanageable urinary leakage the day after. LTG Duration 07/05/21 One Impairment Pt lacks appropriate self care HEP. Short Term Goal (STG) Pt will be independent with a HEP of hip stretches for hip flexors, hamstrings, & hip rotators. (Initially: decreased L hip mobility (in deg's): PSLR: 75 deg's bilaterally; IR 45 deg's bilaterally; ER 55 L, 65 R; AB 28 L, 20 R). (04/17/21: I/S Hip ER stretch for HEP) STG Duration 05/04/21 (04/17/21: Progressed) Fdc Goal (LTG) Pt educated in self care HEP including appropriate PF exercises and hip mobility exercises (PSLR, hip rotation and AB mobility). (05/11/21: HEP issued for hips and abdomen) LTG Duration 07/05/21 (05/11/21: Progressed) Progress Towards Goals Progress Comments Progressed HEP of hip and trunk stretch ex's. Assessment Summary Assessment Pt level of continence is improving, stating she has been using the dilator. She has had no urinary leakage, but is having urgency and wanting to get off her bladder ms spasm medication. Pt to see Dr. Mac before next PT visit and she will ask MD about the bulge in her vaginal region at 3-6 of PF Clock. Physical Therapy Plan Frequency and Duration Frequency of Treatment 1x/Week Plan of Care Start Date 04/06/21 Plan of Care End Date 07/05/21 Next Visit Focus/Plan Next Note Type Treatment Note Next Visit Plan Pt checking with physician regarding bulge in perineum. Reassess bulge in PF 3-6 O' Clock and train pt on use of dilator for stretching. Review proper Kegel (without use of substitute muscles) f/b ms relaxation; pt education in proper perineum care; and transfers/proper breathing; review hip ROM ex's; check for need of hip strengthening. Rehab for mixed urinary incontinence with focus on urge incontinence due to tight PF. E-stim with rectal probe after pt seen by physician, only if needed for ms relaxation to improve level of continence.
--- NOTE | 2021-05-18 16:56 | PT.OTN ---
Current Diagnoses Muscle weakness (generalized) (05/18/21) Mixed incontinence (05/18/21) Other specified urinary incontinence (05/18/21) Other specified symptoms and signs involving the digestive system and abdomen (05/18/21) Abnormal posture (05/18/21) Physical Therapy Treatment Note PT-OP-A Visit Information Start: 03/26/21 18:37 Freq: Status: Active Protocol: Document 05/18/21 10:29 LRN (Rec: 05/18/21 11:18 LRN [id number]) Out-Patient Physical Therapy Visit Information Visit Information Visit Type Treatment Note Visit Start Time 10:29 Visit Stop Time 11:18 Total Visit Minutes 44 Visit Number 6 Evaluation Information Evaluation Date 04/06/21 Precautions Precautions [facility] in shoulder blades - 12/21, Heart attack 2012. Pt noted in her teens she had negative experience with incorrect boundries by a health provider. PT-OP-B Current Condition Start: 03/26/21 18:37 Freq: Status: Active Protocol: Document 04/06/21 08:16 LRN (Rec: 04/06/21 09:48 LRN [id number]) Current Condition History of Current Condition Onset Date Worsened gradually since late 's. Current Complaints Urgency History of Current Condition Pt states she has primary problem of urgency and has noted increased frequency. She has tried estrogen treatment for her problem, but didn't find it helpful. Her urinary urgency started in her 20's and has gradually worsened since her late 30's. She is sometimes has total loss of urinary control and is most noticeable when approaching her house. She has to change clothes a couple times a week due to total loss of control. Incontinence comes after intercourse the day after; therefore she is no longer sexually active. Has studied iatrogenic problems for her urgency and is not taking cranberry tablets and Uvaursi (over the counter pill). Pt is a retired Psychotherapist. Prior Treatments and Tests Estrogen treatment used by Dr. Vizcarra didn't help. Currently taking Oxybutryn, cranberry tablets, Uvaursi, and estogen suppositories. Developmental History Developmental History Urinary urgency started in 20' s when became sexually active and with use of IUD. Was diagnosed with urinary urgency worsened in late 30's. At some point pt was diagnosed with cystitis & had hysterectomy with 1 ovary removed. Uses estrogen insert . No longer sexually active because of urinary leakage after intercourse. Has had bladder pain and pelvic floor pain after sex ( diagnosed with cystitis) - drinking cranberry juice helped (anti-bitics didn't help). Now has urgency and some frequency. As approach house urgency gets worse. Treatment Goals Patient/Caregiver Goals Pt goal is to not change clothes, and to be able to: exercise, ride bike, and have option of having sex. Prior Functional Status Baseline Function- ADL's Independent Baseline Function- Mobility Independent Baseline Function- Other Urgency - some control of urine. Current Functional Impairments (Reported) Functional Limitations- ADL's Doesn't walk [place] Not able to ride bike Not lifting weights Doesn't have sex Functional Limitations- Other Urgency, w/o medications, the urine poors out. Lack of control - not able to stop urine flow. Personal Factors Other Personal Factors That May Effect In her teens she had negative Therapy/Recovery experience with incorrect boundries by a health provider . Heart attack 2012. PT-OP-C Subjective Start: 03/26/21 18:37 Freq: Status: Active Protocol: Document 05/18/21 10:29 LRN (Rec: 05/18/21 11:18 LRN [id number]) OP-PT Subjective Patient Comments Patient Comments Saw Dr. Nimco Mac and found the lump as well and will have a ultrasound Friday (3 days). Has been stretching with the dilator and hasn't been going in as far. Can go 1-2 hrs before voiding. Can ride elevator without problem, has slight problem with leakage in late afternoon due to urge. Getting off caffeine has changed her digestive system so now she is eating more prunes. PT-OP-I Pelvic Floor Start: 03/26/21 18:37 Freq: Status: Active Protocol: Document 04/06/21 08:16 LRN (Rec: 04/06/21 09:48 LRN [id number]) Pelvic Floor Assessment Urine Pelvic Floor Surgery No: Had hyste to remove 1 ovary Urinary Symptoms Urge Sensation,Dribbling After Urination,Incomplete Emptying Other Urinary Symptoms Hard to start stream. Leakage Size Large Leakage Cause Cough,Exercise,Lifting,Sneeze, Urge Other Leakage Causes Leakage is small. Unlocking house. Major leaking 2x/week. Leaks Per Day 2 Voiding Frequency 10 Nocturia 2-3 Pads Used In 24 Hours 1 Urine Pad Type Panty Liner Bowel Bowel Symptoms Uncontrolled Flatulence Other Bowel Symptoms Bowel surgery - 1984 due to fissure, removed and sewed up tissues fragile and took 1 yr to heal. Corrected due to pain. Bowel Movement Frequency 1x/day Lugoff Stool Chart Type 1-7 4 Lugoff Stool Chart Comments type of stool 4 & 5 Prolapse Cystocele Grade 2 Contraction Ability Voluntary Contraction Moderate Manual Muscle Testing Left 2 Manual Muscle Testing Right 3 Manual Muscle Testing Anterior 0 Manual Muscle Testing Posterior 3 Muscle Endurance (Seconds) 10 Number of Quick Contractions In 10 9 Seconds Comments Pelvic Floor Comments Pt able to relax the PF but requires conscientious awareness to relax. Endurance contractioin: Uncoordinated with no inward pull noted. PT-OP-J Posture/Palpation/Skin Start: 03/26/21 18:37 Freq: Status: Active Protocol: Document 04/06/21 08:16 LRN (Rec: 04/06/21 09:48 LRN [id number]) Posture Evaluation Position Standing Head/C-Spine Posture Forward Head T-Spine Posture Flattened L-Spine Posture Increased Lordosis Pelvis Posture Anteriorly Tilted,(L) Rotated Anterior,(R) Rotated Anterior Weight Distribution Balanced Comments Posture Comments Wide stance. PT-OP-K Range of Motion Start: 03/26/21 18:37 Freq: Status: Active Protocol: Document 04/06/21 08:16 LRN (Rec: 04/06/21 09:48 LRN [id number]) Lumbar Spine Range of Motion Lumbar Spine Active Percentage Flexion 90 ROM Limitations Soft Tissue Tightness Comments 100% except as indicated above . Hip Goniometric Range of Motion Hip Right Passive Testing Position Supine Straight Leg Raise 75 Abduction 20 Internal Rotation 45 External Rotation 65 Comments Decr IR Left Passive Testing Position Supine Straight Leg Raise 75 Abduction 28 Internal Rotation 45 External Rotation 55 Comments Decreased ER & IR Hip ROM Limitations Comments Pt had urgency after ROM testing of hip AD's PT-OP-M Strength Start: 03/26/21 18:37 Freq: Status: Active Protocol: Document 04/06/21 08:16 LRN (Rec: 04/06/21 09:48 LRN [id number]) Trunk Strength Trunk Manual Muscle Testing Flexion 3 Fair Rotation Left 3- Fair- Rotation Right 3- Fair- Core Stabilization Loss of stab with LE MMT of flexion and AB bilaterally. Hip Strength Hip Manual Muscle Testing Right Flexion (L2) 3 Fair Extension (S1) 2+ Poor+ Abduction 5 Normal Adduction 5 Normal External Rotation 3 Fair Internal Rotation 3 Fair Left Flexion (L2) 3 Fair Extension (S1) 2+ Poor+ Abduction 5 Normal Adduction 5 Normal External Rotation 3 Fair Internal Rotation 3 Fair PT-OP-Q Treatments Start: 03/26/21 18:37 Freq: Status: Active Protocol: Document 05/18/21 10:29 LRN (Rec: 05/18/21 11:18 LRN [id number]) Therapeutic Exercises Supine Exercises Bowel Massage Supine Exercise Name Bowel massage training Reps/Minutes 8' Comments Pt needed phys & verbal cuing, with multiple reminders to use flat of hand. Self-Care/Home Management Treatment Education Patient Education Home Exercise Program Other Education Discussed at length pt's concerns regarding results of her MD visit. Pt expressing adamently of not wanting further assessment of her PF by possible physician recommended nut sorter. Pt education in proper perineum and genital hygiene care with handout issued. Discussed pt's questions regarding use of dilator and alternatives. It was recommended pt use medically approved devices for PF stretching. Educated pt in various types of dilators for PF stretching and showed pt on computer alternative dilators and sizes for progression. Reviewed/educated pt in proper depth of PF stretching and discussed stretch to deep hip rotators that pt would not be able to do independently. Activities Self-Care/Home Management Activities Issued & reviewed HEP of bowel masage, Urinary delay technique with extra time taken to reinforce pt need for relaxation between contractions for the technique to work. Reviewed and discussed article on PF wearable shorts for PF strengthening to stop urinary leakage. Advised pt that it would not be appropriate for her due to her problem is more of PF tightness instead of weakness. PT-OP-T Assessment and Plan Start: 03/26/21 18:37 Freq: Status: Active Protocol: Document 05/18/21 10:29 LRN (Rec: 05/18/21 11:18 LRN [id number]) Physical Therapy Assessment Goals Four Impairment Decreased awareness of performing a proper PF contraction. Short Term Goal (STG) Improve awareness of a proper PF contraction STG Duration 03/22/21 Retirement Goal (LTG) Pt will be aware of the sensation of a proper PF contraction. LTG: Pt will be able to isolate a PF contraction without overuse of the outer abdominal muscles, hip AD?s muscles, and gluteal muscles. LTG Duration 07/05/21 Three Impairment Urinary incontinence with a strong urge & increased activity Short Term Goal (STG) Pt will be able to return to exercise in an exercise gym without fear of urinary leakage. (05/11/21: Pt ready to return to gym for ex) STG Duration 06/01/21 Retirement Goal (LTG) Pt will be able to return to ride a bike without fear of urinary leakage. LTG Duration 07/05/21 Two Impairment Urinary incontinence Short Term Goal (STG) Pt will not have to change clothes 2-3x/week. STG Duration 05/04/21 Retirement Goal (LTG) Pt will feel she has an option of having sex without fear of unmanageable urinary leakage the day after. LTG Duration 07/05/21 One Impairment Pt lacks appropriate self care HEP. Short Term Goal (STG) Pt will be independent with a HEP of hip stretches for hip flexors, hamstrings, & hip rotators. (Initially: decreased L hip mobility (in deg's): PSLR: 75 deg's bilaterally; IR 45 deg's bilaterally; ER 55 L, 65 R; AB 28 L, 20 R). (04/17/21: I/S Hip ER stretch for HEP) STG Duration 05/04/21 (04/17/21: Progressed) Retirement Goal (LTG) Pt educated in self care HEP including appropriate PF exercises and hip mobility exercises (PSLR, hip rotation and AB mobility). (05/11/21: HEP issued for hips and abdomen) LTG Duration 07/05/21 (05/11/21: Progressed) Assessment Summary Assessment Pt has urge incontinence and to a lesser degree stress incontinence that is improving per reports of being able to do elevator rides without leaking and more time between voids (1.5- 2hrs). She initially had tightness with pain in the R lateral wall (6- 9 of PF clock) and weakness/ swelling in the tissue in the L lateral wall (2-3 of the PF clock) that will need reassessment. Pt has many concerns regarding further PF assessments. She is a little resistant in getting a dilator set to use for further stretching. Pt progress is slow due to many discussions by pt and possibly hesitancy to manual therapy. Pt focus may need to be more on self ex 's to decrease pt's apprehension with therapy. Physical Therapy Plan Frequency and Duration Frequency of Treatment 1x/Week Plan of Care Start Date 04/06/21 Plan of Care End Date 07/05/21 Next Visit Focus/Plan Next Note Type Treatment Note Next Visit Plan Add hamstring and hip AD stretch to HEP. Further training of pt on use of dilator for stretching if needed. Review proper relaxation following Kegel ( Kegel without use of substitute muscles). Transfer training with proper breathing. Review hip ROM ex' s; check for need of hip strengthening. Rehab for mixed urinary incontinence with focus on urge incontinence due to tight PF. Possible vaginal E-stim with rectal probe after pt cleared of type of soft tissue mass in vagina. E-stim if needed for ms relaxation to improve level of continence.
--- NOTE | 2021-05-31 15:38 | PT.OTN ---
Current Diagnoses Muscle weakness (generalized) (05/31/21) Mixed incontinence (05/31/21) Other specified urinary incontinence (05/31/21) Other specified symptoms and signs involving the digestive system and abdomen (05/31/21) Abnormal posture (05/31/21) Physical Therapy Treatment Note PT-OP-A Visit Information Start: 03/26/21 18:37 Freq: Status: Active Protocol: Document 05/31/21 14:26 LRN (Rec: 05/31/21 15:37 LRN [id number]) Out-Patient Physical Therapy Visit Information Visit Information Visit Type Treatment Note Visit Start Time 14:27 Visit Stop Time 15:10 Total Visit Minutes 43 Visit Number 7 Evaluation Information Evaluation Date 04/06/21 Precautions Precautions [facility] in shoulder blades - 12/21, Heart attack 2012. Pt noted in her teens she had negative experience with incorrect boundries by a health provider. PT-OP-B Current Condition Start: 03/26/21 18:37 Freq: Status: Active Protocol: Document 04/06/21 08:16 LRN (Rec: 04/06/21 09:48 LRN [id number]) Current Condition History of Current Condition Onset Date Worsened gradually since late 's. Current Complaints Urgency History of Current Condition Pt states she has primary problem of urgency and has noted increased frequency. She has tried estrogen treatment for her problem, but didn't find it helpful. Her urinary urgency started in her 20's and has gradually worsened since her late 30's. She is sometimes has total loss of urinary control and is most noticeable when approaching her house. She has to change clothes a couple times a week due to total loss of control. Incontinence comes after intercourse the day after; therefore she is no longer sexually active. Has studied iatrogenic problems for her urgency and is not taking cranberry tablets and Uvaursi (over the counter pill). Pt is a retired Psychotherapist. Prior Treatments and Tests Estrogen treatment used by Dr. Vizcarra didn't help. Currently taking Oxybutryn, cranberry tablets, Uvaursi, and estogen suppositories. Developmental History Developmental History Urinary urgency started in 20' s when became sexually active and with use of IUD. Was diagnosed with urinary urgency worsened in late 30's. At some point pt was diagnosed with cystitis & had hysterectomy with 1 ovary removed. Uses estrogen insert . No longer sexually active because of urinary leakage after intercourse. Has had bladder pain and pelvic floor pain after sex ( diagnosed with cystitis) - drinking cranberry juice helped (anti-bitics didn't help). Now has urgency and some frequency. As approach house urgency gets worse. Treatment Goals Patient/Caregiver Goals Pt goal is to not change clothes, and to be able to: exercise, ride bike, and have option of having sex. Prior Functional Status Baseline Function- ADL's Independent Baseline Function- Mobility Independent Baseline Function- Other Urgency - some control of urine. Current Functional Impairments (Reported) Functional Limitations- ADL's Doesn't walk [place] Not able to ride bike Not lifting weights Doesn't have sex Functional Limitations- Other Urgency, w/o medications, the urine poors out. Lack of control - not able to stop urine flow. Personal Factors Other Personal Factors That May Effect In her teens she had negative Therapy/Recovery experience with incorrect boundries by a health provider . Heart attack 2012. PT-OP-C Subjective Start: 03/26/21 18:37 Freq: Status: Active Protocol: Document 05/31/21 14:26 LRN (Rec: 05/31/21 15:37 LRN [id number]) OP-PT Subjective Patient Comments Patient Comments States her MRI results show no mass in her vagina region. She no longer is constipated after getting off caffeine. PT-OP-I Pelvic Floor Start: 03/26/21 18:37 Freq: Status: Active Protocol: Document 04/06/21 08:16 LRN (Rec: 04/06/21 09:48 LRN [id number]) Pelvic Floor Assessment Urine Pelvic Floor Surgery No: Had hyste to remove 1 ovary Urinary Symptoms Urge Sensation,Dribbling After Urination,Incomplete Emptying Other Urinary Symptoms Hard to start stream. Leakage Size Large Leakage Cause Cough,Exercise,Lifting,Sneeze, Urge Other Leakage Causes Leakage is small. Unlocking house. Major leaking 2x/week. Leaks Per Day 2 Voiding Frequency 10 Nocturia 2-3 Pads Used In 24 Hours 1 Urine Pad Type Panty Liner Bowel Bowel Symptoms Uncontrolled Flatulence Other Bowel Symptoms Bowel surgery - 1984 due to fissure, removed and sewed up tissues fragile and took 1 yr to heal. Corrected due to pain. Bowel Movement Frequency 1x/day [place] Stool Chart Type 1-7 4 [place] Stool Chart Comments type of stool 4 & 5 Prolapse Cystocele Grade 2 Contraction Ability Voluntary Contraction Moderate Manual Muscle Testing Left 2 Manual Muscle Testing Right 3 Manual Muscle Testing Anterior 0 Manual Muscle Testing Posterior 3 Muscle Endurance (Seconds) 10 Number of Quick Contractions In 10 9 Seconds Comments Pelvic Floor Comments Pt able to relax the PF but requires conscientious awareness to relax. Endurance contractioin: Uncoordinated with no inward pull noted. PT-OP-J Posture/Palpation/Skin Start: 03/26/21 18:37 Freq: Status: Active Protocol: Document 04/06/21 08:16 LRN (Rec: 04/06/21 09:48 LRN [id number]) Posture Evaluation Position Standing Head/C-Spine Posture Forward Head T-Spine Posture Flattened L-Spine Posture Increased Lordosis Pelvis Posture Anteriorly Tilted,(L) Rotated Anterior,(R) Rotated Anterior Weight Distribution Balanced Comments Posture Comments Wide stance. PT-OP-K Range of Motion Start: 03/26/21 18:37 Freq: Status: Active Protocol: Document 04/06/21 08:16 LRN (Rec: 04/06/21 09:48 LRN [id number]) Lumbar Spine Range of Motion Lumbar Spine Active Percentage Flexion 90 ROM Limitations Soft Tissue Tightness Comments 100% except as indicated above . Hip Goniometric Range of Motion Hip Right Passive Testing Position Supine Straight Leg Raise 75 Abduction 20 Internal Rotation 45 External Rotation 65 Comments Decr IR Left Passive Testing Position Supine Straight Leg Raise 75 Abduction 28 Internal Rotation 45 External Rotation 55 Comments Decreased ER & IR Hip ROM Limitations Comments Pt had urgency after ROM testing of hip AD's PT-OP-M Strength Start: 03/26/21 18:37 Freq: Status: Active Protocol: Document 04/06/21 08:16 LRN (Rec: 04/06/21 09:48 LRN [id number]) Trunk Strength Trunk Manual Muscle Testing Flexion 3 Fair Rotation Left 3- Fair- Rotation Right 3- Fair- Core Stabilization Loss of stab with LE MMT of flexion and AB bilaterally. Hip Strength Hip Manual Muscle Testing Right Flexion (L2) 3 Fair Extension (S1) 2+ Poor+ Abduction 5 Normal Adduction 5 Normal External Rotation 3 Fair Internal Rotation 3 Fair Left Flexion (L2) 3 Fair Extension (S1) 2+ Poor+ Abduction 5 Normal Adduction 5 Normal External Rotation 3 Fair Internal Rotation 3 Fair PT-OP-Q Treatments Start: 03/26/21 18:37 Freq: Status: Active Protocol: Document 05/31/21 14:26 LRN (Rec: 05/31/21 15:37 LRN [id number]) Therapeutic Exercises Supine Exercises Hip AD stretch Supine Exercise Name Hip AD stretch Side bilateral Reps/Minutes 5' Comments Extra time for determining max stretching Hamstring Supine Exercise Name Hamstring stretch Side bilateral Reps/Minutes 5' Comments Extra time for determining max stretching Iliopsoas Stretch Supine Exercise Name Iliopsoas Stretch Side bilateral Reps/Minutes 4' Comments V. cuing for positioning DKTC stretch Supine Exercise Name DKTC stretch Reps/Minutes 2' Comments Pt familiar with stretch Lateral Hip stretch Supine Exercise Name Lateral Hip stretch Side bilateral Reps/Minutes 4' Comments Phys & v cuing to do ex Piriformis stretch Supine Exercise Name Piriformis stretch Side bilateral Reps/Minutes 4' Comments Phys & v cuing to do ex Happy Baby Pose Supine Exercise Name Happy Baby Pose Reps/Minutes 3' Comments Phys & v cuing to do ex Manual Therapy Treatment Soft Tissue Mobilization Abdomen Body Location Abdomen in region area of small intestines Mobilization Type Myofascial Release Intensity/Depth Moderate Body Position Supine Comments Decreased restriction in R Rot , L SB, ext Lower Abdomen Body Location Above pubic bone in region of bladder Mobilization Type Myofascial Release,Sustained Pressure Intensity/Depth Moderate Body Position Supine Comments Decreased restriction in R Rot , L SB, ext Self-Care/Home Management Treatment Education Patient Education Home Exercise Program Activities Self-Care/Home Management Activities Issued & reviewed HEP: Hamstring & hip AD strengthening. PT-OP-T Assessment and Plan Start: 03/26/21 18:37 Freq: Status: Active Protocol: Document 05/31/21 14:26 LRN (Rec: 05/31/21 15:37 LRN [id number]) Physical Therapy Assessment Goals Four Impairment Decreased awareness of performing a proper PF contraction. Short Term Goal (STG) Improve awareness of a proper PF contraction STG Duration 03/22/21 Industrial Maintenance Technician Goal (LTG) Pt will be aware of the sensation of a proper PF contraction. LTG: Pt will be able to isolate a PF contraction without overuse of the outer abdominal muscles, hip AD?s muscles, and gluteal muscles. LTG Duration 07/05/21 Three Impairment Urinary incontinence with a strong urge & increased activity Short Term Goal (STG) Pt will be able to return to exercise in an exercise gym without fear of urinary leakage. (05/11/21: Pt ready to return to gym for ex) STG Duration 06/01/21 Industrial Maintenance Technician Goal (LTG) Pt will be able to return to ride a bike without fear of urinary leakage. LTG Duration 07/05/21 Two Impairment Urinary incontinence Short Term Goal (STG) Pt will not have to change clothes 2-3x/week. STG Duration 05/04/21 Usp Goal (LTG) Pt will feel she has an option of having sex without fear of unmanageable urinary leakage the day after. LTG Duration 07/05/21 One Impairment Pt lacks appropriate self care HEP. Short Term Goal (STG) Pt will be independent with a HEP of hip stretches for hip flexors, hamstrings, & hip rotators. (Initially: decreased L hip mobility (in deg's): PSLR: 75 deg's bilaterally; IR 45 deg's bilaterally; ER 55 L, 65 R; AB 28 L, 20 R). (04/17/21: I/S Hip ER stretch for HEP) STG Duration 05/04/21 (04/17/21: Progressed) Usp Goal (LTG) Pt educated in self care HEP including appropriate PF exercises and hip mobility exercises (PSLR, hip rotation and AB mobility). (05/11/21: HEP issued for hips and abdomen) LTG Duration 07/05/21 (05/11/21: Progressed) Assessment Summary Assessment Pt showed good understanding of her HEP hip stretches; therefore pt appears compliant with stretches. She has not yet purchased a dilator set. The pt MRI showed no mass noted and holding of 108cc in bladder; therefore when pt can tolerate use of vaginal electrode E-stim and biofeedback with electrode for PF awareness training for relaxation after PF contractions and for awareness of relaxation for complete emptying of bladder. Physical Therapy Plan Frequency and Duration Frequency of Treatment 1x/Week Plan of Care Start Date 04/06/21 Plan of Care End Date 07/05/21 Next Visit Focus/Plan Next Note Type Treatment Note Next Visit Plan Possible DC to HEP. Review HEP last issued: hamstring and hip AD stretch and response to post voiding relaxation/ deep breathing for complete empying of bladder. Further training of pt on use of dilator for stretching. Check if pt obtained dilator set. Discuss Plan of Care (HEP/DC or 1x/week until pt able to use vaginal electrode for treatment). Review proper relaxation following Kegel ( Kegel without use of substitute muscles). Transfer training with proper breathing. Check for need of hip strengthening. Rehab for mixed urinary incontinence with focus on urge incontinence due to tight PF. Possible vaginal E-stim with vaginal probe. E-stim if needed for ms relaxation to improve level of continence.
--- NOTE | 2021-06-07 17:07 | PT.OTN ---
Current Diagnoses Muscle weakness (generalized) (06/07/21) Mixed incontinence (06/07/21) Other specified urinary incontinence (06/07/21) Other specified symptoms and signs involving the digestive system and abdomen (06/07/21) Abnormal posture (06/07/21) Physical Therapy Treatment Note PT-OP-A Visit Information Start: 03/26/21 18:37 Freq: Status: Active Protocol: Document 06/07/21 12:45 LRN (Rec: 06/07/21 13:34 LRN [id number]) Out-Patient Physical Therapy Visit Information Visit Information Visit Type Treatment Note Visit Start Time 12:45 Visit Stop Time 13:30 Total Visit Minutes 45 Visit Number 8 Evaluation Information Evaluation Date 04/06/21 Precautions Precautions [facility] in shoulder blades - 12/21, Heart attack 2012. Pt noted in her teens she had negative experience with incorrect boundries by a health provider. PT-OP-B Current Condition Start: 03/26/21 18:37 Freq: Status: Active Protocol: Document 04/06/21 08:16 LRN (Rec: 04/06/21 09:48 LRN [id number]) Current Condition History of Current Condition Onset Date Worsened gradually since late s. Current Complaints Urgency History of Current Condition Pt states she has primary problem of urgency and has noted increased frequency. She has tried estrogen treatment for her problem, but didn't find it helpful. Her urinary urgency started in her 20's and has gradually worsened since her late 30's. She is sometimes has total loss of urinary control and is most noticeable when approaching her house. She has to change clothes a couple times a week due to total loss of control. Incontinence comes after intercourse the day after; therefore she is no longer sexually active. Has studied iatrogenic problems for her urgency and is not taking cranberry tablets and Uvaursi (over the counter pill). Pt is a retired Psychotherapist. Prior Treatments and Tests Estrogen treatment used by Dr. Vizcarra didn't help. Currently taking Oxybutryn, cranberry tablets, Uvaursi, and estogen suppositories. Developmental History Developmental History Urinary urgency started in 20' s when became sexually active and with use of IUD. Was diagnosed with urinary urgency worsened in late 30's. At some point pt was diagnosed with cystitis & had hysterectomy with 1 ovary removed. Uses estrogen insert . No longer sexually active because of urinary leakage after intercourse. Has had bladder pain and pelvic floor pain after sex ( diagnosed with cystitis) - drinking cranberry juice helped (anti-bitics didn't help). Now has urgency and some frequency. As approach house urgency gets worse. Treatment Goals Patient/Caregiver Goals Pt goal is to not change clothes, and to be able to: exercise, ride bike, and have option of having sex. Prior Functional Status Baseline Function- ADL's Independent Baseline Function- Mobility Independent Baseline Function- Other Urgency - some control of urine. Current Functional Impairments (Reported) Functional Limitations- ADL's Doesn't walk [place] Not able to ride bike Not lifting weights Doesn't have sex Functional Limitations- Other Urgency, w/o medications, the urine poors out. Lack of control - not able to stop urine flow. Personal Factors Other Personal Factors That May Effect In her teens she had negative Therapy/Recovery experience with incorrect boundries by a health provider . Heart attack 2012. PT-OP-C Subjective Start: 03/26/21 18:37 Freq: Status: Active Protocol: Document 06/07/21 12:45 LRN (Rec: 06/07/21 13:34 LRN [id number]) OP-PT Subjective Patient Comments Patient Comments Had one good week and was happy for 10 days one day lost urinary control. Can look behind her while driving better. States after sitting (~3 minutes later) has urinary leakage. PT-OP-I Pelvic Floor Start: 03/26/21 18:37 Freq: Status: Active Protocol: Document 04/06/21 08:16 LRN (Rec: 04/06/21 09:48 LRN [id number]) Pelvic Floor Assessment Urine Pelvic Floor Surgery No: Had hyste to remove 1 ovary Urinary Symptoms Urge Sensation,Dribbling After Urination,Incomplete Emptying Other Urinary Symptoms Hard to start stream. Leakage Size Large Leakage Cause Cough,Exercise,Lifting,Sneeze, Urge Other Leakage Causes Leakage is small. Unlocking house. Major leaking 2x/week. Leaks Per Day 2 Voiding Frequency 10 Nocturia 2-3 Pads Used In 24 Hours 1 Urine Pad Type Panty Liner Bowel Bowel Symptoms Uncontrolled Flatulence Other Bowel Symptoms Bowel surgery - 1984 due to fissure, removed and sewed up tissues fragile and took 1 yr to heal. Corrected due to pain. Bowel Movement Frequency 1x/day [place] Stool Chart Type 1-7 4 [place] Stool Chart Comments type of stool 4 & 5 Prolapse Cystocele Grade 2 Contraction Ability Voluntary Contraction Moderate Manual Muscle Testing Left 2 Manual Muscle Testing Right 3 Manual Muscle Testing Anterior 0 Manual Muscle Testing Posterior 3 Muscle Endurance (Seconds) 10 Number of Quick Contractions In 10 9 Seconds Comments Pelvic Floor Comments Pt able to relax the PF but requires conscientious awareness to relax. Endurance contractioin: Uncoordinated with no inward pull noted. PT-OP-J Posture/Palpation/Skin Start: 03/26/21 18:37 Freq: Status: Active Protocol: Document 04/06/21 08:16 LRN (Rec: 04/06/21 09:48 LRN [id number]) Posture Evaluation Position Standing Head/C-Spine Posture Forward Head T-Spine Posture Flattened L-Spine Posture Increased Lordosis Pelvis Posture Anteriorly Tilted,(L) Rotated Anterior,(R) Rotated Anterior Weight Distribution Balanced Comments Posture Comments Wide stance. PT-OP-K Range of Motion Start: 03/26/21 18:37 Freq: Status: Active Protocol: Document 04/06/21 08:16 LRN (Rec: 04/06/21 09:48 LRN [id number]) Lumbar Spine Range of Motion Lumbar Spine Active Percentage Flexion 90 ROM Limitations Soft Tissue Tightness Comments 100% except as indicated above . Hip Goniometric Range of Motion Hip Right Passive Testing Position Supine Straight Leg Raise 75 Abduction 20 Internal Rotation 45 External Rotation 65 Comments Decr IR Left Passive Testing Position Supine Straight Leg Raise 75 Abduction 28 Internal Rotation 45 External Rotation 55 Comments Decreased ER & IR Hip ROM Limitations Comments Pt had urgency after ROM testing of hip AD's PT-OP-M Strength Start: 03/26/21 18:37 Freq: Status: Active Protocol: Document 04/06/21 08:16 LRN (Rec: 04/06/21 09:48 LRN [id number]) Trunk Strength Trunk Manual Muscle Testing Flexion 3 Fair Rotation Left 3- Fair- Rotation Right 3- Fair- Core Stabilization Loss of stab with LE MMT of flexion and AB bilaterally. Hip Strength Hip Manual Muscle Testing Right Flexion (L2) 3 Fair Extension (S1) 2+ Poor+ Abduction 5 Normal Adduction 5 Normal External Rotation 3 Fair Internal Rotation 3 Fair Left Flexion (L2) 3 Fair Extension (S1) 2+ Poor+ Abduction 5 Normal Adduction 5 Normal External Rotation 3 Fair Internal Rotation 3 Fair PT-OP-Q Treatments Start: 03/26/21 18:37 Freq: Status: Active Protocol: Document 06/07/21 12:45 LRN (Rec: 06/07/21 13:34 LRN [id number]) Therapeutic Exercises Supine Exercises Hamstring Supine Exercise Name Hamstring stretch Side bilateral Reps/Minutes 5' Comments Extra time for determining max stretching DKTC stretch Supine Exercise Name DKTC stretch Reps/Minutes 2' Comments Pt familiar with stretch Piriformis stretch Supine Exercise Name Piriformis stretch Side bilateral Reps/Minutes 4' Comments Phys & v cuing to do ex Happy Baby Pose Supine Exercise Name Happy Baby Pose Reps/Minutes 3' Comments Phys & v cuing to do ex Hip ER stretch Supine Exercise Name Fig 4 stretch, f/t active stretch Side bilateral Reps/Minutes 8' Comments Pt needed phys cuing for active stretch. Other Exercises Wag the Tail Other Exercise Name Wag the Tail Side bilateral Reps/Minutes 5' Comments Extra time for training Child's Pose Other Exercise Name Child's Pose Reps/Minutes 3' Self-Care/Home Management Treatment Education Patient Education Home Exercise Program Other Education Discussed at length pt's plan of care. Discussed further therapy after pt self stretching of PF. Activities Self-Care/Home Management Activities Issued & reviewed HEP: Wag the Tail for core & PF stretch . I/S pt to continue Child's Pose as HEP. PT-OP-T Assessment and Plan Start: 03/26/21 18:37 Freq: Status: Active Protocol: Document 06/07/21 12:45 LRN (Rec: 06/07/21 13:34 LRN [id number]) Physical Therapy Assessment Goals Four Impairment Decreased awareness of performing a proper PF contraction. Short Term Goal (STG) Improve awareness of a proper PF contraction. STG Duration 03/22/21 (06/07/21: MET GOAL) Extension Professor Goal (LTG) Pt will be aware of the sensation of a proper PF contraction. LTG: Pt will be able to isolate a PF contraction without overuse of the outer abdominal muscles, hip AD?s muscles, and gluteal muscles. (06/07/21: Pt able to contract her PF w/o substitute muscles and is able to feel a relaxation of muscles) LTG Duration 07/05/21 (06/07/21: MET GOAL) Three Impairment Urinary incontinence with a strong urge & increased activity Short Term Goal (STG) Pt will be able to return to exercise in an exercise gym without fear of urinary leakage. (06/07/21: Pt ready to return to gym for ex without fear of leaking) STG Duration 06/01/21 (06/07/21: MET GOAL) Mcc Goal (LTG) Pt will be able to return to ride a bike without fear of urinary leakage. LTG Duration 07/05/21 Two Impairment Urinary incontinence Short Term Goal (STG) Pt will not have to change clothes 2-3x/week. (06/07/21: Changing clothes 1x/ week, changes pads 2x/week ( used to be a couple times a day)). STG Duration 05/04/21 (06/07/21: Progressing) Mcc Goal (LTG) Pt will feel she has an option of having sex without fear of unmanageable urinary leakage the day after. (06/07/21: Pt now able to have a feeling of sexual interest) LTG Duration 07/05/21 (06/07/21: Progressing) One Impairment Pt lacks appropriate self care HEP. Short Term Goal (STG) Pt will be independent with a HEP of hip stretches for hip flexors, hamstrings, & hip rotators. (Initially: decreased L hip mobility (in deg's): PSLR: 75 deg's bilaterally; IR 45 deg's bilaterally; ER 55 L, 65 R; AB 28 L, 20 R). (04/17/21: I/S Hip ER stretch for HEP) STG Duration 05/04/21 (04/17/21: Progressed) Mcc Goal (LTG) Pt educated in self care HEP including appropriate PF exercises and hip mobility exercises (PSLR, hip rotation and AB mobility). (05/11/21: HEP issued for hips and abdomen) LTG Duration 07/05/21 (05/11/21: Progressed) Progress Towards Goals Progress Comments STG: #3 MET. STG & STG #4 MET. Improved continence: Changing pads less often from 2x/day to 2x/week. Assessment Summary Assessment Pt was able to order dilator set, hasn't yet arrived. She has improved in her confidence level of her incontinence and would do gym work, but is still concerned of Covid virus; therefore choosing not to return to gym for exercise. Pt appears to have awareness of a PF contraction and relaxation and is able to isolate her contraction from substitute muscles. This past week she has leaked less, requiring less changing of clothes, but continues to wear pads for protection. She reports changing her pads less often from a couple times day to 2x/ week. Physical Therapy Plan Frequency and Duration Frequency of Treatment 1x/Week Plan of Care Start Date 04/06/21 Plan of Care End Date 07/05/21 Next Visit Focus/Plan Next Note Type Progress Note Next Visit Plan PN next visit for continuation of therapy 1x/week for 6-8 more weeks. Review HEP last issued: Wag the Tail & Add: Child's pose. Pt to stretch w /dilators, then return for biofeedback assessment and PF training. Further training of pt on use of dilator for stretching if needed. If PF strengthening needed, add PF clock to HEP. Review proper relaxation following Kegel ( Kegel without use of substitute muscles). Transfer training with proper breathing. Check for need of hip strengthening. Rehab for mixed urinary incontinence with focus on urge incontinence due to tight PF. Possible vaginal E-stim with vaginal probe. E-stim for ms relaxation to improve level of continence.
--- NOTE | 2021-06-21 16:42 | PT.OTN ---
Current Diagnoses Muscle weakness (generalized) (06/21/21) Mixed incontinence (06/21/21) Other specified urinary incontinence (06/21/21) Other specified symptoms and signs involving the digestive system and abdomen (06/21/21) Abnormal posture (06/21/21) Physical Therapy Treatment Note PT-OP-A Visit Information Start: 03/26/21 18:37 Freq: Status: Active Protocol: Document 06/21/21 12:45 LRN (Rec: 06/21/21 13:42 LRN [id number]) Out-Patient Physical Therapy Visit Information Visit Information Visit Type Progress Note Visit Start Time 12:50 Visit Stop Time 13:42 Total Visit Minutes 52 Visit Number 9 Evaluation Information Evaluation Date 04/06/21 Precautions Precautions [facility] in shoulder blades - 12/21, Heart attack 2012. Pt noted in her teens she had negative experience with incorrect boundries by a health provider. PT-OP-B Current Condition Start: 03/26/21 18:37 Freq: Status: Active Protocol: Document 04/06/21 08:16 LRN (Rec: 04/06/21 09:48 LRN [id number]) Current Condition History of Current Condition Onset Date Worsened gradually since late s. Current Complaints Urgency History of Current Condition Pt states she has primary problem of urgency and has noted increased frequency. She has tried estrogen treatment for her problem, but didn't find it helpful. Her urinary urgency started in her 20's and has gradually worsened since her late 30's. She is sometimes has total loss of urinary control and is most noticeable when approaching her house. She has to change clothes a couple times a week due to total loss of control. Incontinence comes after intercourse the day after; therefore she is no longer sexually active. Has studied iatrogenic problems for her urgency and is not taking cranberry tablets and Uvaursi (over the counter pill). Pt is a retired Psychotherapist. Prior Treatments and Tests Estrogen treatment used by Dr. Vizcarra didn't help. Currently taking Oxybutryn, cranberry tablets, Uvaursi, and estogen suppositories. Developmental History Developmental History Urinary urgency started in 20' s when became sexually active and with use of IUD. Was diagnosed with urinary urgency worsened in late 30's. At some point pt was diagnosed with cystitis & had hysterectomy with 1 ovary removed. Uses estrogen insert . No longer sexually active because of urinary leakage after intercourse. Has had bladder pain and pelvic floor pain after sex ( diagnosed with cystitis) - drinking cranberry juice helped (anti-bitics didn't help). Now has urgency and some frequency. As approach house urgency gets worse. Treatment Goals Patient/Caregiver Goals Pt goal is to not change clothes, and to be able to: exercise, ride bike, and have option of having sex. Prior Functional Status Baseline Function- ADL's Independent Baseline Function- Mobility Independent Baseline Function- Other Urgency - some control of urine. Current Functional Impairments (Reported) Functional Limitations- ADL's Doesn't walk [place] Not able to ride bike Not lifting weights Doesn't have sex Functional Limitations- Other Urgency, w/o medications, the urine poors out. Lack of control - not able to stop urine flow. Personal Factors Other Personal Factors That May Effect In her teens she had negative Therapy/Recovery experience with incorrect boundries by a health provider . Heart attack 2012. PT-OP-C Subjective Start: 03/26/21 18:37 Freq: Status: Active Protocol: Document 06/21/21 12:45 LRN (Rec: 06/21/21 13:42 LRN [id number]) OP-PT Subjective Patient Comments Patient Comments Has had almost no problems. One time had a problem. Out for couple hours, no urgency until got home and had no warning and just lost urine. Was out 2+ hours. Has been stretching and doing ex's. Past 2 weeks has had to change pad due to drop or 2 of urine , other than the one incident. Patient Questionnaires Pelvic Pain and Urgency/Frequency Patient Symptom Scale Pelvic Pain Score 13 PT-OP-I Pelvic Floor Start: 03/26/21 18:37 Freq: Status: Active Protocol: Document 04/06/21 08:16 LRN (Rec: 04/06/21 09:48 LRN [id number]) Pelvic Floor Assessment Urine Pelvic Floor Surgery No: Had hyste to remove 1 ovary Urinary Symptoms Urge Sensation,Dribbling After Urination,Incomplete Emptying Other Urinary Symptoms Hard to start stream. Leakage Size Large Leakage Cause Cough,Exercise,Lifting,Sneeze, Urge Other Leakage Causes Leakage is small. Unlocking house. Major leaking 2x/week. Leaks Per Day 2 Voiding Frequency 10 Nocturia 2-3 Pads Used In 24 Hours 1 Urine Pad Type Panty Liner Bowel Bowel Symptoms Uncontrolled Flatulence Other Bowel Symptoms Bowel surgery - 1984 due to fissure, removed and sewed up tissues fragile and took 1 yr to heal. Corrected due to pain. Bowel Movement Frequency 1x/day [place] Stool Chart Type 1-7 4 [place] Stool Chart Comments type of stool 4 & 5 Prolapse Cystocele Grade 2 Contraction Ability Voluntary Contraction Moderate Manual Muscle Testing Left 2 Manual Muscle Testing Right 3 Manual Muscle Testing Anterior 0 Manual Muscle Testing Posterior 3 Muscle Endurance (Seconds) 10 Number of Quick Contractions In 10 9 Seconds Comments Pelvic Floor Comments Pt able to relax the PF but requires conscientious awareness to relax. Endurance contractioin: Uncoordinated with no inward pull noted. PT-OP-J Posture/Palpation/Skin Start: 03/26/21 18:37 Freq: Status: Active Protocol: Document 04/06/21 08:16 LRN (Rec: 04/06/21 09:48 LRN [id number]) Posture Evaluation Position Standing Head/C-Spine Posture Forward Head T-Spine Posture Flattened L-Spine Posture Increased Lordosis Pelvis Posture Anteriorly Tilted,(L) Rotated Anterior,(R) Rotated Anterior Weight Distribution Balanced Comments Posture Comments Wide stance. PT-OP-K Range of Motion Start: 03/26/21 18:37 Freq: Status: Active Protocol: Document 04/06/21 08:16 LRN (Rec: 04/06/21 09:48 LRN [id number]) Lumbar Spine Range of Motion Lumbar Spine Active Percentage Flexion 90 ROM Limitations Soft Tissue Tightness Comments 100% except as indicated above . Hip Goniometric Range of Motion Hip Right Passive Testing Position Supine Straight Leg Raise 75 Abduction 20 Internal Rotation 45 External Rotation 65 Comments Decr IR Left Passive Testing Position Supine Straight Leg Raise 75 Abduction 28 Internal Rotation 45 External Rotation 55 Comments Decreased ER & IR Hip ROM Limitations Comments Pt had urgency after ROM testing of hip AD's PT-OP-M Strength Start: 03/26/21 18:37 Freq: Status: Active Protocol: Document 04/06/21 08:16 LRN (Rec: 04/06/21 09:48 LRN [id number]) Trunk Strength Trunk Manual Muscle Testing Flexion 3 Fair Rotation Left 3- Fair- Rotation Right 3- Fair- Core Stabilization Loss of stab with LE MMT of flexion and AB bilaterally. Hip Strength Hip Manual Muscle Testing Right Flexion (L2) 3 Fair Extension (S1) 2+ Poor+ Abduction 5 Normal Adduction 5 Normal External Rotation 3 Fair Internal Rotation 3 Fair Left Flexion (L2) 3 Fair Extension (S1) 2+ Poor+ Abduction 5 Normal Adduction 5 Normal External Rotation 3 Fair Internal Rotation 3 Fair PT-OP-Q Treatments Start: 03/26/21 18:37 Freq: Status: Active Protocol: Document 06/21/21 12:45 LRN (Rec: 06/21/21 16:26 LRN [id number]) Neuro Re-Education Treatment Other Activities Resting tone training Details Resting tone assessment and awareness training Reps/Duration 2' PF Long Holds Details Long Holds contraction and relaxation training, Legs on bolster Reps/Duration 25' Comments Extra time taken for training on EMG biofeedback unit. Extra time taken for PF awareness training for relaxation along with contraction holding Extra time for positioning for exercise with legs on bolster . PF Quick Flicks Details Quick Flicks contraction and relaxation training, Legs on bolster Reps/Duration 20' Comments Extra time taken for positioning of electrode and training on EMG biofeedback unit. Extra time for training of awareness of control of PF contractions Self-Care/Home Management Treatment Education Other Education Discussed and educated pt in use of dilator when PF is tight and painful; otherwise pt is to hold on PF stretching and focus HEP on PF strengthening with relaxation after contractions. PT-OP-T Assessment and Plan Start: 03/26/21 18:37 Freq: Status: Active Protocol: Document 06/21/21 12:45 LRN (Rec: 06/21/21 13:42 LRN [id number]) Physical Therapy Assessment Goals Four Impairment Decreased awareness of performing a proper PF contraction. Short Term Goal (STG) Improve awareness of a proper PF contraction. STG Duration 03/22/21 (06/07/21: MET GOAL) Residential Goal (LTG) Pt will be aware of the sensation of a proper PF contraction. LTG: Pt will be able to isolate a PF contraction without overuse of the outer abdominal muscles, hip AD?s muscles, and gluteal muscles. (06/07/21: Pt able to contract her PF w/o substitute muscles and is able to feel a relaxation of muscles) LTG Duration 07/05/21 (06/07/21: MET GOAL) Three Impairment Urinary incontinence with a strong urge & increased activity Short Term Goal (STG) Pt will be able to return to exercise in an exercise gym without fear of urinary leakage. (06/07/21: Pt ready to return to gym for ex without fear of leaking) STG Duration 06/01/21 (06/07/21: MET GOAL) Residential Goal (LTG) Pt will be able to return to ride a bike without fear of urinary leakage. LTG Duration 07/05/21 Two Impairment Urinary incontinence Short Term Goal (STG) Pt will not have to change clothes 2-3x/week. (06/07/21: Changing clothes 1x/ week, changes pads 2x/week ( used to be a couple times a day)). STG Duration 05/04/21 (06/07/21: Progressing) Urology Nurse Goal (LTG) Pt will feel she has an option of having sex without fear of unmanageable urinary leakage the day after. (06/07/21: Pt now able to have a feeling of sexual interest) LTG Duration 07/05/21 (06/07/21: Progressing) One Impairment Pt lacks appropriate self care HEP. Short Term Goal (STG) Pt will be independent with a HEP of hip stretches for hip flexors, hamstrings, & hip rotators. (Initially: decreased L hip mobility (in deg's): PSLR: 75 deg's bilaterally; IR 45 deg's bilaterally; ER 55 L, 65 R; AB 28 L, 20 R). (04/17/21: I/S Hip ER stretch for HEP) STG Duration 05/04/21 (04/17/21: Progressed) Residential Goal (LTG) Pt educated in self care HEP including appropriate PF exercises and hip mobility exercises (PSLR, hip rotation and AB mobility). (05/11/21: HEP issued for hips and abdomen) LTG Duration 07/05/21 (05/11/21: Progressed) Progress Towards Goals Progress Comments Decreased PUF score from 14 to 13. Assessment Summary Assessment Pt has been using dilator set and may have overstretched PF; therefore experiencing and episode of total loss of uinary continence. She reports no urge felt, but with discussion the pt appears to have had some idea that she needed to urinate, but waited because it didn't feel urgent. The pt had no difficulty with insertion of vaginal electrode for biofeedback training, but had discomfort on removal due to poor lubrication. With EMG biofeedback pt demonstrates weakness of her PF with Quick flick avg strength of 4.78 uV' s and Long Hold avg strength of 3.8 uV's (avg rest of 1.1uV 's). Pt will benefit from further strengthening with awareness for need of relaxation between contractions. She initially had tightness with pain in the R lateral wall (6-9 of PF clock) and weakness/swelling in the tissue in the L lateral wall (2-3 of the PF clock) that will need reassessment for PN. Pt has one more visit before end of POC; therefore will do PN at next visit. Physical Therapy Plan Frequency and Duration Frequency of Treatment 1x/Week Plan of Care Start Date 04/06/21 Plan of Care End Date 07/05/21 Next Visit Focus/Plan Next Note Type Progress Note Next Visit Plan PN next visit for continuation of therapy 1x/week for 6-8 more weeks. Review HEP last issued: [place] & Add: Child's pose. Continue biofeedback training for PF strengthening. No further PF stretching by pt is needed unless pain onset from PF strengthening. Add PF clock to HEP. Review proper relaxation following Kegel ( Kegel without use of substitute muscles). Transfer training with proper breathing. Check for need of hip strengthening. Rehab for mixed urinary incontinence with focus on urge incontinence due to tight PF. E-stim for ms relaxation if needed for pain.
--- NOTE | 2021-06-21 16:48 | PT.OTN ---
Current Diagnoses Muscle weakness (generalized) (06/21/21) Mixed incontinence (06/21/21) Other specified urinary incontinence (06/21/21) Other specified symptoms and signs involving the digestive system and abdomen (06/21/21) Abnormal posture (06/21/21) Physical Therapy Treatment Note PT-OP-A Visit Information Start: 03/26/21 18:37 Freq: Status: Active Protocol: Document 06/21/21 12:45 LRN (Rec: 06/21/21 13:42 LRN [id number]) Out-Patient Physical Therapy Visit Information Visit Information Visit Type Progress Note Visit Start Time 12:50 Visit Stop Time 13:42 Total Visit Minutes 52 Visit Number 9 Evaluation Information Evaluation Date 04/06/21 Precautions Precautions [facility] in shoulder blades - 12/21, Heart attack 2012. Pt noted in her teens she had negative experience with incorrect boundries by a health provider. PT-OP-B Current Condition Start: 03/26/21 18:37 Freq: Status: Active Protocol: Document 04/06/21 08:16 LRN (Rec: 04/06/21 09:48 LRN [id number]) Current Condition History of Current Condition Onset Date Worsened gradually since late s. Current Complaints Urgency History of Current Condition Pt states she has primary problem of urgency and has noted increased frequency. She has tried estrogen treatment for her problem, but didn't find it helpful. Her urinary urgency started in her 20's and has gradually worsened since her late 30's. She is sometimes has total loss of urinary control and is most noticeable when approaching her house. She has to change clothes a couple times a week due to total loss of control. Incontinence comes after intercourse the day after; therefore she is no longer sexually active. Has studied iatrogenic problems for her urgency and is not taking cranberry tablets and Uvaursi (over the counter pill). Pt is a retired Psychotherapist. Prior Treatments and Tests Estrogen treatment used by Dr. Vizcarra didn't help. Currently taking Oxybutryn, cranberry tablets, Uvaursi, and estogen suppositories. Developmental History Developmental History Urinary urgency started in 20' s when became sexually active and with use of IUD. Was diagnosed with urinary urgency worsened in late 30's. At some point pt was diagnosed with cystitis & had hysterectomy with 1 ovary removed. Uses estrogen insert . No longer sexually active because of urinary leakage after intercourse. Has had bladder pain and pelvic floor pain after sex ( diagnosed with cystitis) - drinking cranberry juice helped (anti-bitics didn't help). Now has urgency and some frequency. As approach house urgency gets worse. Treatment Goals Patient/Caregiver Goals Pt goal is to not change clothes, and to be able to: exercise, ride bike, and have option of having sex. Prior Functional Status Baseline Function- ADL's Independent Baseline Function- Mobility Independent Baseline Function- Other Urgency - some control of urine. Current Functional Impairments (Reported) Functional Limitations- ADL's Doesn't walk [place] Not able to ride bike Not lifting weights Doesn't have sex Functional Limitations- Other Urgency, w/o medications, the urine poors out. Lack of control - not able to stop urine flow. Personal Factors Other Personal Factors That May Effect In her teens she had negative Therapy/Recovery experience with incorrect boundries by a health provider . Heart attack 2012. PT-OP-C Subjective Start: 03/26/21 18:37 Freq: Status: Active Protocol: Document 06/21/21 12:45 LRN (Rec: 06/21/21 13:42 LRN [id number]) OP-PT Subjective Patient Comments Patient Comments Has had almost no problems. One time had a problem. Out for couple hours, no urgency until got home and had no warning and just lost urine. Was out 2+ hours. Has been stretching and doing ex's. Past 2 weeks has had to change pad due to drop or 2 of urine , other than the one incident. Patient Questionnaires Pelvic Pain and Urgency/Frequency Patient Symptom Scale Pelvic Pain Score 13 PT-OP-I Pelvic Floor Start: 03/26/21 18:37 Freq: Status: Active Protocol: Document 06/21/21 12:45 LRN (Rec: 06/21/21 16:48 LRN [id number]) Pelvic Floor Assessment SEMG (uV) Baseline 0.7 Quick Contraction 4.8 10 Second Contraction 3.8 Recruitment Pattern Good Relaxation Fair Holding Poor/Slow Stability of Hold Poor/Slow SEMG Stability of Rest Fair Comments Pelvic Floor Comments Quick Flicks: Avg rest is 2.2 uVs Long Holds: Avg rest is 1.1 uVs At rest (60 secs) pt had a few a episodes of raised tone. PT-OP-J Posture/Palpation/Skin Start: 03/26/21 18:37 Freq: Status: Active Protocol: Document 04/06/21 08:16 LRN (Rec: 04/06/21 09:48 LRN [id number]) Posture Evaluation Position Standing Head/C-Spine Posture Forward Head T-Spine Posture Flattened L-Spine Posture Increased Lordosis Pelvis Posture Anteriorly Tilted,(L) Rotated Anterior,(R) Rotated Anterior Weight Distribution Balanced Comments Posture Comments Wide stance. PT-OP-K Range of Motion Start: 03/26/21 18:37 Freq: Status: Active Protocol: Document 04/06/21 08:16 LRN (Rec: 04/06/21 09:48 LRN [id number]) Lumbar Spine Range of Motion Lumbar Spine Active Percentage Flexion 90 ROM Limitations Soft Tissue Tightness Comments 100% except as indicated above . Hip Goniometric Range of Motion Hip Right Passive Testing Position Supine Straight Leg Raise 75 Abduction 20 Internal Rotation 45 External Rotation 65 Comments Decr IR Left Passive Testing Position Supine Straight Leg Raise 75 Abduction 28 Internal Rotation 45 External Rotation 55 Comments Decreased ER & IR Hip ROM Limitations Comments Pt had urgency after ROM testing of hip AD's PT-OP-M Strength Start: 03/26/21 18:37 Freq: Status: Active Protocol: Document 04/06/21 08:16 LRN (Rec: 04/06/21 09:48 LRN [id number]) Trunk Strength Trunk Manual Muscle Testing Flexion 3 Fair Rotation Left 3- Fair- Rotation Right 3- Fair- Core Stabilization Loss of stab with LE MMT of flexion and AB bilaterally. Hip Strength Hip Manual Muscle Testing Right Flexion (L2) 3 Fair Extension (S1) 2+ Poor+ Abduction 5 Normal Adduction 5 Normal External Rotation 3 Fair Internal Rotation 3 Fair Left Flexion (L2) 3 Fair Extension (S1) 2+ Poor+ Abduction 5 Normal Adduction 5 Normal External Rotation 3 Fair Internal Rotation 3 Fair PT-OP-Q Treatments Start: 03/26/21 18:37 Freq: Status: Active Protocol: Document 06/21/21 12:45 LRN (Rec: 06/21/21 16:26 LRN [id number]) Neuro Re-Education Treatment Other Activities Resting tone training Details Resting tone assessment and awareness training Reps/Duration 2' PF Long Holds Details Long Holds contraction and relaxation training, Legs on bolster Reps/Duration 25' Comments Extra time taken for training on EMG biofeedback unit. Extra time taken for PF awareness training for relaxation along with contraction holding Extra time for positioning for exercise with legs on bolster . PF Quick Flicks Details Quick Flicks contraction and relaxation training, Legs on bolster Reps/Duration 20' Comments Extra time taken for positioning of electrode and training on EMG biofeedback unit. Extra time for training of awareness of control of PF contractions Self-Care/Home Management Treatment Education Other Education Discussed and educated pt in use of dilator when PF is tight and painful; otherwise pt is to hold on PF stretching and focus HEP on PF strengthening with relaxation after contractions. PT-OP-T Assessment and Plan Start: 03/26/21 18:37 Freq: Status: Active Protocol: Document 06/21/21 12:45 LRN (Rec: 06/21/21 13:42 LRN [id number]) Physical Therapy Assessment Goals Four Impairment Decreased awareness of performing a proper PF contraction. Short Term Goal (STG) Improve awareness of a proper PF contraction. STG Duration 03/22/21 (06/07/21: MET GOAL) [facility] Goal (LTG) Pt will be aware of the sensation of a proper PF contraction. LTG: Pt will be able to isolate a PF contraction without overuse of the outer abdominal muscles, hip AD?s muscles, and gluteal muscles. (06/07/21: Pt able to contract her PF w/o substitute muscles and is able to feel a relaxation of muscles) LTG Duration 07/05/21 (06/07/21: MET GOAL) Three Impairment Urinary incontinence with a strong urge & increased activity Short Term Goal (STG) Pt will be able to return to exercise in an exercise gym without fear of urinary leakage. (06/07/21: Pt ready to return to gym for ex without fear of leaking) STG Duration 06/01/21 (06/07/21: MET GOAL) Half-Way Goal (LTG) Pt will be able to return to ride a bike without fear of urinary leakage. LTG Duration 07/05/21 Two Impairment Urinary incontinence Short Term Goal (STG) Pt will not have to change clothes 2-3x/week. (06/07/21: Changing clothes 1x/ week, changes pads 2x/week ( used to be a couple times a day)). STG Duration 05/04/21 (06/07/21: Progressing) Half-Way Goal (LTG) Pt will feel she has an option of having sex without fear of unmanageable urinary leakage the day after. (06/07/21: Pt now able to have a feeling of sexual interest) LTG Duration 07/05/21 (06/07/21: Progressing) One Impairment Pt lacks appropriate self care HEP. Short Term Goal (STG) Pt will be independent with a HEP of hip stretches for hip flexors, hamstrings, & hip rotators. (Initially: decreased L hip mobility (in deg's): PSLR: 75 deg's bilaterally; IR 45 deg's bilaterally; ER 55 L, 65 R; AB 28 L, 20 R). (04/17/21: I/S Hip ER stretch for HEP) STG Duration 05/04/21 (04/17/21: Progressed) [facility] Goal (LTG) Pt educated in self care HEP including appropriate PF exercises and hip mobility exercises (PSLR, hip rotation and AB mobility). (05/11/21: HEP issued for hips and abdomen) LTG Duration 07/05/21 (05/11/21: Progressed) Progress Towards Goals Progress Comments Decreased PUF score from 14 to 13. Assessment Summary Assessment Pt has been using dilator set and may have overstretched PF; therefore experiencing and episode of total loss of uinary continence. She reports no urge felt, but with discussion the pt appears to have had some idea that she needed to urinate, but waited because it didn't feel urgent. The pt had no difficulty with insertion of vaginal electrode for biofeedback training, but had discomfort on removal due to poor lubrication. With EMG biofeedback pt demonstrates weakness of her PF with Quick flick avg strength of 4.78 uV' s and Long Hold avg strength of 3.8 uV's (avg rest of 1.1uV 's). Pt will benefit from further strengthening with awareness for need of relaxation between contractions. She initially had tightness with pain in the R lateral wall (6-9 of PF clock) and weakness/swelling in the tissue in the L lateral wall (2-3 of the PF clock) that will need reassessment for PN. Pt has one more visit before end of POC; therefore will do PN at next visit. Physical Therapy Plan Frequency and Duration Frequency of Treatment 1x/Week Plan of Care Start Date 04/06/21 Plan of Care End Date 07/05/21 Next Visit Focus/Plan Next Note Type Progress Note Next Visit Plan PN next visit for continuation of therapy 1x/week for 6-8 more weeks. Review HEP last issued: [place] & Add: Child's pose. Continue biofeedback training for PF strengthening. No further PF stretching by pt is needed unless pain onset from PF strengthening. Add PF clock to HEP. Review proper relaxation following Kegel ( Kegel without use of substitute muscles). Transfer training with proper breathing. Check for need of hip strengthening. Rehab for mixed urinary incontinence with focus on urge incontinence due to tight PF. E-stim for ms relaxation if needed for pain.
--- NOTE | 2021-06-28 16:20 | PT.OTN ---
Current Diagnoses Muscle weakness (generalized) (06/28/21) Mixed incontinence (06/28/21) Other specified urinary incontinence (06/28/21) Other specified symptoms and signs involving the digestive system and abdomen (06/28/21) Abnormal posture (06/28/21) Physical Therapy Treatment Note PT-OP-A Visit Information Start: 03/26/21 18:37 Freq: Status: Active Protocol: Document 06/28/21 12:49 LRN (Rec: 06/28/21 13:36 LRN [id number]) Out-Patient Physical Therapy Visit Information Visit Information Visit Type Progress Note Visit Start Time 12:49 Visit Stop Time 13:27 Total Visit Minutes 38 Visit Number 10 Evaluation Information Evaluation Date 04/06/21 Precautions Precautions [facility] in shoulder blades - 12/21, Heart attack 2012. Pt noted in her teens she had negative experience with incorrect boundries by a health provider. PT-OP-B Current Condition Start: 03/26/21 18:37 Freq: Status: Active Protocol: Document 04/06/21 08:16 LRN (Rec: 04/06/21 09:48 LRN [id number]) Current Condition History of Current Condition Onset Date Worsened gradually since late s. Current Complaints Urgency History of Current Condition Pt states she has primary problem of urgency and has noted increased frequency. She has tried estrogen treatment for her problem, but didn't find it helpful. Her urinary urgency started in her 20's and has gradually worsened since her late 30's. She is sometimes has total loss of urinary control and is most noticeable when approaching her house. She has to change clothes a couple times a week due to total loss of control. Incontinence comes after intercourse the day after; therefore she is no longer sexually active. Has studied iatrogenic problems for her urgency and is not taking cranberry tablets and Uvaursi (over the counter pill). Pt is a retired Psychotherapist. Prior Treatments and Tests Estrogen treatment used by Dr. Vizcarra didn't help. Currently taking Oxybutryn, cranberry tablets, Uvaursi, and estogen suppositories. Developmental History Developmental History Urinary urgency started in 20' s when became sexually active and with use of IUD. Was diagnosed with urinary urgency worsened in late 30's. At some point pt was diagnosed with cystitis & had hysterectomy with 1 ovary removed. Uses estrogen insert . No longer sexually active because of urinary leakage after intercourse. Has had bladder pain and pelvic floor pain after sex ( diagnosed with cystitis) - drinking cranberry juice helped (anti-bitics didn't help). Now has urgency and some frequency. As approach house urgency gets worse. Treatment Goals Patient/Caregiver Goals Pt goal is to not change clothes, and to be able to: exercise, ride bike, and have option of having sex. Prior Functional Status Baseline Function- ADL's Independent Baseline Function- Mobility Independent Baseline Function- Other Urgency - some control of urine. Current Functional Impairments (Reported) Functional Limitations- ADL's Doesn't walk [place] Not able to ride bike Not lifting weights Doesn't have sex Functional Limitations- Other Urgency, w/o medications, the urine poors out. Lack of control - not able to stop urine flow. Personal Factors Other Personal Factors That May Effect In her teens she had negative Therapy/Recovery experience with incorrect boundries by a health provider . Heart attack 2012. PT-OP-C Subjective Start: 03/26/21 18:37 Freq: Status: Active Protocol: Document 06/28/21 12:49 LRN (Rec: 06/28/21 13:36 LRN [id number]) OP-PT Subjective Patient Comments Patient Comments Has been good, no accidents or dampness. Practicing Kegels, used dilator x 1 the past week. Had discomfort after scan in chest and heart. States she is still taking her medications. 43% confident will not leak after sexual intercourse. PT-OP-I Pelvic Floor Start: 03/26/21 18:37 Freq: Status: Active Protocol: Document 06/21/21 12:45 LRN (Rec: 06/21/21 16:48 LRN [id number]) Pelvic Floor Assessment SEMG (uV) Baseline 0.7 Quick Contraction 4.8 10 Second Contraction 3.8 Recruitment Pattern Good Relaxation Fair Holding Poor/Slow Stability of Hold Poor/Slow SEMG Stability of Rest Fair Comments Pelvic Floor Comments Quick Flicks: Avg rest is 2.2 uVs Long Holds: Avg rest is 1.1 uVs At rest (60 secs) pt had a few a episodes of raised tone. PT-OP-J Posture/Palpation/Skin Start: 03/26/21 18:37 Freq: Status: Active Protocol: Document 04/06/21 08:16 LRN (Rec: 04/06/21 09:48 LRN [id number]) Posture Evaluation Position Standing Head/C-Spine Posture Forward Head T-Spine Posture Flattened L-Spine Posture Increased Lordosis Pelvis Posture Anteriorly Tilted,(L) Rotated Anterior,(R) Rotated Anterior Weight Distribution Balanced Comments Posture Comments Wide stance. PT-OP-K Range of Motion Start: 03/26/21 18:37 Freq: Status: Active Protocol: Document 04/06/21 08:16 LRN (Rec: 04/06/21 09:48 LRN [id number]) Lumbar Spine Range of Motion Lumbar Spine Active Percentage Flexion 90 ROM Limitations Soft Tissue Tightness Comments 100% except as indicated above . Hip Goniometric Range of Motion Hip Right Passive Testing Position Supine Straight Leg Raise 75 Abduction 20 Internal Rotation 45 External Rotation 65 Comments Decr IR Left Passive Testing Position Supine Straight Leg Raise 75 Abduction 28 Internal Rotation 45 External Rotation 55 Comments Decreased ER & IR Hip ROM Limitations Comments Pt had urgency after ROM testing of hip AD's PT-OP-M Strength Start: 03/26/21 18:37 Freq: Status: Active Protocol: Document 04/06/21 08:16 LRN (Rec: 04/06/21 09:48 LRN [id number]) Trunk Strength Trunk Manual Muscle Testing Flexion 3 Fair Rotation Left 3- Fair- Rotation Right 3- Fair- Core Stabilization Loss of stab with LE MMT of flexion and AB bilaterally. Hip Strength Hip Manual Muscle Testing Right Flexion (L2) 3 Fair Extension (S1) 2+ Poor+ Abduction 5 Normal Adduction 5 Normal External Rotation 3 Fair Internal Rotation 3 Fair Left Flexion (L2) 3 Fair Extension (S1) 2+ Poor+ Abduction 5 Normal Adduction 5 Normal External Rotation 3 Fair Internal Rotation 3 Fair PT-OP-Q Treatments Start: 03/26/21 18:37 Freq: Status: Active Protocol: Document 06/28/21 12:49 LRN (Rec: 06/28/21 13:36 LRN [id number]) Cardio Equipment Bicycle (Upright) Duration (Minutes) 8 Resistance 5 Seat Position 4 Therapeutic Exercises Prone Exercises Prone Plank w/knee flex Prone Exercise Name Prone Plank w/knee flexion/ proper breathing Side bilateral Reps/Minutes 6'' Comments Extra time taken for training to keep core shabana and breath proper. Prone Plank Prone Exercise Name Prone Plank w/proper breathing Reps/Minutes 3' Comments Extra time for training of core stabilization and proper breathing Sidelying Exercises Sie Plank Sidelying Exercise Name Side Planks w/proper breathing (HEP) Side bilateral Reps/Minutes 5' Comments Extra time taken for proper postioning and breathing Other Exercises Wag the Tail Other Exercise Name Wag the Tail Side bilateral Reps/Minutes 5' Comments Extra time spent on stretching L lateral trunk Child's Pose Other Exercise Name Child's Pose Reps/Minutes 3' Self-Care/Home Management Treatment Education Other Education Discussed pt's HEP ( continuation, reps, times per day, etc... and new POC, with addition of new goal of improving PF strength for pt to move closer to achieving LTG #2 of not having unmanageable urinary leakage the day after sexual intercourse. Activities Self-Care/Home Management Activities Added, issued & reviewed HEP: Rock Backs > Child's Pose for PF/hip stretches and Core Strengthening (side plank, Prone Plank, & Prone plank knee flex). PT-OP-T Assessment and Plan Start: 03/26/21 18:37 Freq: Status: Active Protocol: Document 06/28/21 12:49 LRN (Rec: 06/28/21 13:36 LRN [id number]) Physical Therapy Assessment Rehab Potential Rehabilitation Potential Good Evaluation Complexity Number of Personal Factors/Comorbidities 1-2 Number of Body Systems Impaired 4 or More Clinical Presentation at Evaluation Evolving Impairments Impairments Activity Tolerance,Pain,ROM, Strength Goals Five Impairment PF weakness (06/21/21: Quick 4 .8uV, Long 10 hold 3.8 uV, baseline 0.7uV) Short Term Goal (STG) Pt will be able to perform: 10 Quick Flicks with avg strength 5.8 uV, Long holds with avg strength: 5.8 uV STG Duration 07/23/21 Meter Repair Shop Supervisor Goal (LTG) Improve PF endurance with pt able to perform: 10 Quick Flicks with avg strength 6.8 uVs 10 sec Long holds without or with minimal fatigue (avg strength 6.8 - 7.8 uVs) LTG Duration 08/27/21 Four Impairment Decreased awareness of performing a proper PF contraction. Short Term Goal (STG) Improve awareness of a proper PF contraction. STG Duration 03/22/21 (06/07/21: MET GOAL) Jail Goal (LTG) Pt will be aware of the sensation of a proper PF contraction. LTG: Pt will be able to isolate a PF contraction without overuse of the outer abdominal muscles, hip AD?s muscles, and gluteal muscles. (06/07/21: Pt able to contract her PF w/o substitute muscles and is able to feel a relaxation of muscles) LTG Duration 07/05/21 (06/07/21: MET GOAL) Three Impairment Urinary incontinence with a strong urge & increased activity Short Term Goal (STG) Pt will be able to return to exercise in an exercise gym without fear of urinary leakage. (06/07/21: Pt ready to return to gym for ex without fear of leaking) STG Duration 06/01/21 (06/07/21: MET GOAL) Meter Repair Shop Supervisor Goal (LTG) Pt will be able to return to ride a bike without fear of urinary leakage. (06/28/21: Initiated biking on stationary bike) LTG Duration 08/27/21 (06/28/21: Initiated progression to biking) Two Impairment Urinary incontinence Short Term Goal (STG) Pt will not have to change clothes 2-3x/week. (06/28/21: No leakage this past week). STG Duration 05/04/21 (06/28/21: MET GOAL) Meter Repair Shop Supervisor Goal (LTG) Pt will feel she has an option of having sex without fear of unmanageable urinary leakage the day after. (06/28/21: Pt now able to have a feeling of sexual interest, 43% confident will not leak) LTG Duration 08/27/21 (06/07/21: Progressing) One Impairment Pt lacks appropriate self care HEP. Short Term Goal (STG) Pt will be independent with a HEP of hip stretches for hip flexors, hamstrings, & hip rotators. (Initially: decreased L hip mobility (in deg's): PSLR: 75 deg's bilaterally; IR 45 deg's bilaterally; ER 55 L, 65 R; AB 28 L, 20 R). STG Duration 05/04/21 (06/28/21: MET GOAL) Jail Goal (LTG) Pt educated in self care HEP including appropriate PF exercises and hip mobility exercises (PSLR, hip rotation and AB mobility). (05/11/21: HEP issued for hips and abdomen) LTG Duration 07/05/21 (05/11/21: Progressed) Progress Towards Goals Progress Comments Progressed return to bike riding. Progressed HEP. Assessment Summary Assessment Pt has recently shown good improvement in her urinary incontinence with being able to go a week without having to change her pad or wetting of her underewear. The pt is beginning to show interest again in having sexual intercourse, and is working toward PF and core stretching to decrease pain with insertion and potential intercourse. I am now progressing the pt with her exercise program to determine if bike riding will be appropriate for her. The pt doesn't have pain with PF internal assessment and demonstrates weakness of her PF muscles and tightness of her L hip/core. The pt would benefit from further physical therapy to work towards achieving the above stated goals, which includes added goal of improving PF strength and endurance of contraction. Physical Therapy Plan Frequency and Duration Frequency of Treatment 1x/Week Plan of Care Start Date 06/28/21 Plan of Care End Date 08/27/21 Next Visit Focus/Plan Next Note Type Treatment Note Next Visit Plan Assess response to upright biking. Continue biofeedback training for PF strengthening/endurance . No further PF stretching by pt is needed unless pain onset from PF strengthening. Add PF clock to HEP. Review proper relaxation if needed, following Kegel ex ( Kegel without use of substitute muscles). Transfer training with proper breathing. Check for need of hip strengthening. Rehab for mixed urinary incontinence with focus on urge incontinence (pt hoping to decrease use of medications for urgency) due initially to tight PF. E-stim for ms relaxation if needed for pain.
--- NOTE | 2021-07-27 12:52 | PT.OTN ---
Current Diagnoses Muscle weakness (generalized) (07/27/21) Mixed incontinence (07/27/21) Other specified urinary incontinence (07/27/21) Other specified symptoms and signs involving the digestive system and abdomen (07/27/21) Abnormal posture (07/27/21) Physical Therapy Treatment Note PT-OP-A Visit Information Start: 03/26/21 18:37 Freq: Status: Active Protocol: Document 07/27/21 11:17 LRN (Rec: 07/27/21 12:51 LRN [id number]) Out-Patient Physical Therapy Visit Information Visit Information Visit Type Treatment Note Visit Start Time 11:17 Visit Stop Time 12:09 Total Visit Minutes 52 Visit Number 11 Evaluation Information Evaluation Date 04/06/21 Precautions Precautions [facility] in shoulder blades - 12/21, Heart attack 2012. Pt noted in her teens she had negative experience with incorrect boundries by a health provider. PT-OP-B Current Condition Start: 03/26/21 18:37 Freq: Status: Active Protocol: Document 04/06/21 08:16 LRN (Rec: 04/06/21 09:48 LRN [id number]) Current Condition History of Current Condition Onset Date Worsened gradually since late s. Current Complaints Urgency History of Current Condition Pt states she has primary problem of urgency and has noted increased frequency. She has tried estrogen treatment for her problem, but didn't find it helpful. Her urinary urgency started in her 20's and has gradually worsened since her late 30's. She is sometimes has total loss of urinary control and is most noticeable when approaching her house. She has to change clothes a couple times a week due to total loss of control. Incontinence comes after intercourse the day after; therefore she is no longer sexually active. Has studied iatrogenic problems for her urgency and is not taking cranberry tablets and Uvaursi (over the counter pill). Pt is a retired Psychotherapist. Prior Treatments and Tests Estrogen treatment used by Dr. Vizcarra didn't help. Currently taking Oxybutryn, cranberry tablets, Uvaursi, and estogen suppositories. Developmental History Developmental History Urinary urgency started in 20' s when became sexually active and with use of IUD. Was diagnosed with urinary urgency worsened in late 30's. At some point pt was diagnosed with cystitis & had hysterectomy with 1 ovary removed. Uses estrogen insert . No longer sexually active because of urinary leakage after intercourse. Has had bladder pain and pelvic floor pain after sex ( diagnosed with cystitis) - drinking cranberry juice helped (anti-bitics didn't help). Now has urgency and some frequency. As approach house urgency gets worse. Treatment Goals Patient/Caregiver Goals Pt goal is to not change clothes, and to be able to: exercise, ride bike, and have option of having sex. Prior Functional Status Baseline Function- ADL's Independent Baseline Function- Mobility Independent Baseline Function- Other Urgency - some control of urine. Current Functional Impairments (Reported) Functional Limitations- ADL's Doesn't walk [place] Not able to ride bike Not lifting weights Doesn't have sex Functional Limitations- Other Urgency, w/o medications, the urine poors out. Lack of control - not able to stop urine flow. Personal Factors Other Personal Factors That May Effect In her teens she had negative Therapy/Recovery experience with incorrect boundries by a health provider . Heart attack 2012. PT-OP-C Subjective Start: 03/26/21 18:37 Freq: Status: Active Protocol: Document 07/27/21 11:17 LRN (Rec: 07/27/21 12:51 LRN [id number]) OP-PT Subjective Patient Comments Patient Comments Has been reducing her medication (oxybutryn) by 1/3 and alternates between damp and dry, Feels she is much better mentally. PT-OP-I Pelvic Floor Start: 03/26/21 18:37 Freq: Status: Active Protocol: Document 07/27/21 11:17 LRN (Rec: 07/27/21 12:51 LRN [id number]) Pelvic Floor Assessment SEMG (uV) Baseline 1.2 Quick Contraction 8.2 10 Second Contraction 9.2 Recruitment Pattern Good Relaxation Good Holding Fair Stability of Hold Fair SEMG Stability of Rest Good Comments Pelvic Floor Comments Long Holds: Avg rest is 2.8 uVs At rest (60 secs) pt had a few a episodes of raised tone. PT-OP-J Posture/Palpation/Skin Start: 03/26/21 18:37 Freq: Status: Active Protocol: Document 04/06/21 08:16 LRN (Rec: 04/06/21 09:48 LRN [id number]) Posture Evaluation Position Standing Head/C-Spine Posture Forward Head T-Spine Posture Flattened L-Spine Posture Increased Lordosis Pelvis Posture Anteriorly Tilted,(L) Rotated Anterior,(R) Rotated Anterior Weight Distribution Balanced Comments Posture Comments Wide stance. PT-OP-K Range of Motion Start: 03/26/21 18:37 Freq: Status: Active Protocol: Document 07/27/21 11:17 LRN (Rec: 07/27/21 12:51 LRN [id number]) Hip Goniometric Range of Motion Hip Right Passive Straight Leg Raise 75 Abduction 25 Internal Rotation 50 External Rotation 55 Left Passive Straight Leg Raise 85 Abduction 25 Internal Rotation 55 External Rotation 60 PT-OP-M Strength Start: 03/26/21 18:37 Freq: Status: Active Protocol: Document 04/06/21 08:16 LRN (Rec: 04/06/21 09:48 LRN [id number]) Trunk Strength Trunk Manual Muscle Testing Flexion 3 Fair Rotation Left 3- Fair- Rotation Right 3- Fair- Core Stabilization Loss of stab with LE MMT of flexion and AB bilaterally. Hip Strength Hip Manual Muscle Testing Right Flexion (L2) 3 Fair Extension (S1) 2+ Poor+ Abduction 5 Normal Adduction 5 Normal External Rotation 3 Fair Internal Rotation 3 Fair Left Flexion (L2) 3 Fair Extension (S1) 2+ Poor+ Abduction 5 Normal Adduction 5 Normal External Rotation 3 Fair Internal Rotation 3 Fair PT-OP-Q Treatments Start: 03/26/21 18:37 Freq: Status: Active Protocol: Document 07/27/21 11:17 LRN (Rec: 07/27/21 12:51 LRN [id number]) Therapeutic Exercises Supine Exercises PF Quick Flicks & Long Holds Supine Exercise Name 20 Quick Flicks & 10 long holds Comments Extra time taken with restarting of ex's due to poor timing of contractions PF resting tone Supine Exercise Name PF resting tone assessment Comments Extra time needed for proper postioning of vaginal electrode Hip AD stretch Supine Exercise Name Hip AD stretch Side bilateral Reps/Minutes 1x each Comments ROM taken Hamstring Supine Exercise Name Hamstring stretch Side bilateral Reps/Minutes 2x each Comments ROM taken Piriformis stretch Supine Exercise Name Hip IR stretch Side bilateral Reps/Minutes 1x each Comments ROM taken Hip ER stretch Supine Exercise Name Hip ER stretch Side bilateral Reps/Minutes 2x each Comments ROM taken Self-Care/Home Management Treatment Education Patient Education Home Exercise Program Other Education Discussed pt's choice to decrease use of her PF medication (Oxybutyrn) and the POC. Pt agreeable to DC to HEP for now until she can wean off the medication; then will seek return to therapy for further rehab once off the medication. Activities Self-Care/Home Management Activities Issued & reviewed HEP: PF around the clock ex. Reviewed her hip ROM ex's PT-OP-T Assessment and Plan Start: 03/26/21 18:37 Freq: Status: Active Protocol: Document 07/27/21 11:17 LRN (Rec: 07/27/21 12:51 LRN [id number]) Physical Therapy Assessment Goals Five Impairment PF weakness (06/21/21: Quick 4 .8uV, Long 10 hold 3.8 uV, baseline 0.7uV) Short Term Goal (STG) Pt will be able to perform: 10 Quick Flicks with avg strength 5.8 uV, Long holds with avg strength: 5.8 uV STG Duration 07/23/21 (07/27/21: MET GOAL) Group Home Goal (LTG) Improve PF endurance with pt able to perform: 10 Quick Flicks with avg strength 6.8 uVs 10 sec Long holds without or with minimal fatigue (avg strength 6.8 - 7.8 uVs) LTG Duration 08/27/21 (07/27/21: MET GOAL) Four Impairment Decreased awareness of performing a proper PF contraction. Short Term Goal (STG) Improve awareness of a proper PF contraction. STG Duration 03/22/21 (06/07/21: MET GOAL) Well Tester Goal (LTG) Pt will be aware of the sensation of a proper PF contraction. LTG: Pt will be able to isolate a PF contraction without overuse of the outer abdominal muscles, hip AD?s muscles, and gluteal muscles. (06/07/21: Pt able to contract her PF w/o substitute muscles and is able to feel a relaxation of muscles) LTG Duration 07/05/21 (06/07/21: MET GOAL) Three Impairment Urinary incontinence with a strong urge & increased activity Short Term Goal (STG) Pt will be able to return to exercise in an exercise gym without fear of urinary leakage. (06/07/21: Pt ready to return to gym for ex without fear of leaking) STG Duration 06/01/21 (06/07/21: MET GOAL) Group Home Goal (LTG) Pt will be able to return to ride a bike without fear of urinary leakage. (06/28/21: Initiated biking on stationary bike) LTG Duration 08/27/21 (07/27/21: NOT MET) Two Impairment Urinary incontinence Short Term Goal (STG) Pt will not have to change clothes 2-3x/week. (06/28/21: No leakage this past week). STG Duration 05/04/21 (06/28/21: MET GOAL) Well Tester Goal (LTG) Pt will feel she has an option of having sex without fear of unmanageable urinary leakage the day after. (06/28/21: Pt now able to have a feeling of sexual interest, 43% confident will not leak) LTG Duration 08/27/21 (07/27/21: NOT MET) One Impairment Pt lacks appropriate self care HEP. Short Term Goal (STG) Pt will be independent with a HEP of hip stretches for hip flexors, hamstrings, & hip rotators. (Initially: decreased L hip mobility (in deg's): PSLR: 75 deg's bilaterally; IR 45 deg's bilaterally; ER 55 L, 65 R; AB 28 L, 20 R). STG Duration 05/04/21 (06/28/21: MET GOAL) Group Home Goal (LTG) Pt educated in self care HEP including appropriate PF exercises and hip mobility exercises (PSLR, hip rotation and AB mobility). (07/27/21: HEP issued for PF around the clock ex) LTG Duration 07/05/21 (07/27/21: MET GOAL) Assessment Summary Assessment Pt demonstrates much improved PF strength in quick flicks and long holds. She continues to experience urinary incontinence, but is reducing her use of incontinence medication (Oxybutyrn), but has managed to stay at a consistent level of continence . The pt plans to continue to work toward eliminating her medication use; therefore I recommend that if needed, the pt return for PF rehabilitation once she has stopped changing her use of the medication and if urinary incontinence is still a problem. The pt is not interested in pursing sexual relations at this time and is not in a position to start upright biking; therefore these aspects of her rehabilitation could be later addressed if this is something the pt feels is needed. The pt does exhibit habits of breathholding during PF contractions and engaging her TA & Gluteal muscles to assist with PF contraction, probably due to weakness. She has improved the symmetry of mobility of her hips, improving stability of the pelvis. Further PF and hip strengthening may be needed in the future once the pt is able to decrease or eliminate use of her PF medication ( Oxybutyrn). Physical Therapy Plan Discharge Physical Therapy Discharge Comments Pt is being discharged to her independent self care HEP to continue PF strengthening while reducing her use of her PF medication. Thank you for your referral.
== END 2021-08-01 13:14 | disposition home or self-care (01) ==
LOC: PHYS 11:15
PROVIDERS: Family Provider Nurse Practitioner; PCP Nurse Practitioner; Referring Provider Nurse Practitioner; Visit Provider Nurse Practitioner
DX: N39.498 Other specified urinary incontinence (principal); R19.8 Other specified symptoms and signs involving the digestive system and abdomen; N39.46 Mixed incontinence; M62.81 Muscle weakness (generalized); R29.3 Abnormal posture
CPT/HCPCS: 97110; 97112; 97140; 97162; 97535

== ENCOUNTER → 2022-01-14 11:56 | Outpatient (CLI) | payer MEDICARE, BC, SELFPAY ==
--- NOTE | 2022-01-14 12:00 | DI.US.S_ITS ---
ULTRASOUND OF RIGHT BREAST: 01/14/2022 CLINICAL: Patient returns for a 6 month follow up of the right breast. Comparison is made to exams dated: 01/14/2022 mammogram, 05/25/2021 ultrasound, 05/25/2021 mammogram, 07/04/2020 ultrasound, and 07/04/2020 mammogram - [facility]. Color flow and real-time ultrasound of the right breast were performed. Schaefer scale images of the real-time examination were reviewed. There are two adjacent cysts as previously noted. The largest measures 0.3 cm x 0.3 cm x 0.3 cm and is relatively stable. The smaller one measures 0.2 cm x 0.1 cm x 0.2 cm and appears slightly smaller and less prominent compared to prior study. These presumed oval complicated cysts in the right breast inferior medial quadrant in the retroareolar region 1 cm from the nipple are hypoechoic with posterior acoustic enhancement. These abnormalities correlate as previously palpable areas of concern. Color flow imaging demonstrates that there is no increase in vascularity. IMPRESSION: PROBABLY BENIGN The two adjacent oval complicated cysts in the right breast most likely are probably benign. A follow-up bilateral mammogram and a right ultrasound in 6 months is recommended to demonstrate stability. Additionally, spot magnification views will be recommended on follow up mammogram to document stability of probably benign grouped calcifications in the right breast. Findings and recommendations were conveyed to the patient during today's evaluation. This exam was interpreted at Station ID: [id number]. Electronically Signed By: Frandy Doty M.D. aty/:01/14/2022 14:00:34 letter sent: Followup Recommended Ultrasound BI-RADS: 3 Probably benign
--- NOTE | 2022-01-14 12:00 | DI.MG.S_ITS ---
UNILATERAL RIGHT DIGITAL DIAGNOSTIC MAMMOGRAM 3D/2D: 01/14/2022 CLINICAL: Short term follow up of the right breast. Comparison is made to exams dated: 05/25/2021 ultrasound, 05/25/2021 mammogram, 07/04/2020 ultrasound, and 07/04/2020 mammogram - [facility]. The tissue of right breast is heterogeneously dense. This may lower the sensitivity of mammography. Redemonstration of previously described oval mass with a circumscribed margin in the right breast at 5 o'clock anterior depth. This is not significantly changed and correlates with ultrasound findings. There also are grouped coarse punctate calcifications in the right breast at 11 o'clock posterior depth. These are not significantly changed. No other significant masses or calcifications are seen in the breast. IMPRESSION: INCOMPLETE: NEEDS ADDITIONAL IMAGING EVALUATION The oval mass in the right breast at 5 o'clock anterior depth remains indeterminate. An ultrasound is recommended for further evaluation and is scheduled to immediately follow this examination. The grouped coarse punctate calcifications in the right breast at 11 o'clock posterior depth are probably benign. A follow-up in 6 months is recommended. This exam was interpreted at Station ID: [id number]. NOTE: For mammograms, a report in lay terms will be sent to the patient. Approximately 15% of breast malignancies will not be visualized mammographically. In the management of a palpable breast mass, a negative mammogram must not discourage biopsy of a clinically suspicious lesion. Electronically Signed By: Frandy Doty M.D. aty/:01/14/2022 13:15:27 ACR BI-RADS Category 0: Incomplete 3340F
== END ==
PROVIDERS: Family Provider Nurse Practitioner; PCP Nurse Practitioner; Referring Provider Nurse Practitioner; Visit Provider Nurse Practitioner
DX: R92.8 Other abnormal and inconclusive findings on diagnostic imaging of breast (principal); R92.1 Mammographic calcification found on diagnostic imaging of breast; N60.01 Solitary cyst of right breast
CPT/HCPCS: 76642; 77065; G0279

== ENCOUNTER → 2022-06-14 07:00 | Outpatient (CLI) | payer MEDICARE, BC, SELFPAY ==
[2022-06-14 09:03] LABS: Alanine Aminotransferase 15 IU/L (<35); Albumin 3.7 g/dL (3.5-5.0); Albumin Globulin Ratio 1.4 (1.0-2.8); Alkaline Phosphatase 98 U/L (38-126); Aspartate Aminotransferase 20 IU/L (14-36); BUN Creatinine Ratio 18.2 (6-22); Bilirubin Total 0.9 mg/dL (0.2-1.3); Blood Urea Nitrogen 12 mg/dL (7-17); Calcium 8.8 mg/dL (8.4-10.2); Carbon Dioxide 28 mmol/L (22-32); Chloride 99 mmol/L (98-107); Cholesterol 152 mg/dL (140-199); Estimated Glomerular Filt Rate > 60 mL/min (>60); Globulin 2.7 g/dL (1.7-4.1); Glucose 89 mg/dL (80-110); HDL Cholesterol 58 mg/dL (40-60); HEMOLYSIS < 15 (0-50); LDL Cholesterol Calculated 77 mg/dL (<100); Potassium 4.5 mmol/L (3.4-5.1); Sodium 135 mmol/L (137-145); Total Protein 6.4 g/dL (6.3-8.2); Triglycerides 84 mg/dL (35-150)
[2022-06-14 09:24] LABS: Free T3, Triiodothyronine Free 3.17 pg/mL (2.77-5.27); Free T4, Direct Thyroxine 1.21 ng/dL (0.78-2.19)
[2022-06-14 09:38] LABS: Thyroid Stimulating Hormone 3.32 uIU/mL (0.47-4.68)
[2022-06-14 14:50] LABS: Microalbumin Urine Random < 0.6 mg/dL (0-1.6)
== END ==
PROVIDERS: Family Provider Nurse Practitioner; PCP Nurse Practitioner; Referring Provider Nurse Practitioner; Visit Provider Nurse Practitioner
DX: E03.9 Hypothyroidism, unspecified (principal); E78.2 Mixed hyperlipidemia; I10 Essential (primary) hypertension; Z79.899 Other long term (current) drug therapy
CPT/HCPCS: 36415; 80053; 80061; 82043; 82570; 84439; 84443; 84481

== ENCOUNTER → 2023-11-04 07:39 | Outpatient (CLI) | payer MEDICARE, BC, SELFPAY ==
[2023-11-04 08:29] LABS: Alanine Aminotransferase 20 IU/L (<35); Albumin 4.2 g/dL (3.5-5.0); Albumin Globulin Ratio 1.3 (1.0-2.8); Alkaline Phosphatase 110 U/L (38-126); Aspartate Aminotransferase 25 IU/L (14-36); BUN Creatinine Ratio 25.8 (6-22); Bilirubin Total 0.9 mg/dL (0.2-1.3); Blood Urea Nitrogen 23 mg/dL (7-17); Calcium 9.8 mg/dL (8.4-10.2); Carbon Dioxide 28 mmol/L (22-32); Chloride 105 mmol/L (98-107); Cholesterol 202 mg/dL (140-199); Estimated Glomerular Filt Rate > 60 mL/min (>60); Globulin 3.2 g/dL (1.7-4.1); Glucose 97 mg/dL (80-110); HDL Cholesterol 83 mg/dL (40-60); HEMOLYSIS < 15 (0-50); LDL Cholesterol Calculated 101 mg/dL (<100); Potassium 4.2 mmol/L (3.4-5.1); Sodium 138 mmol/L (137-145); Total Protein 7.4 g/dL (6.3-8.2); Triglycerides 88 mg/dL (35-150)
[2023-11-04 08:39] LABS: Free T3, Triiodothyronine Free 4.15 pg/mL (2.77-5.27)
[2023-11-04 09:11] LABS: Hep C Virus Ab w/Reflex Quant NEGATIVE s/c (NEGATIVE)
[2023-11-04 12:28] LABS: Microalbumi Creatinin Ratio Ur 19.1 ug/mg CR (<30); Microalbumin Urine Random 1.7 mg/dL (0-1.6)
== END ==
PROVIDERS: Family Provider Nurse Practitioner; PCP Nurse Practitioner; Referring Provider Nurse Practitioner; Visit Provider Nurse Practitioner
DX: Z11.59 Encounter for screening for other viral diseases (principal); I10 Essential (primary) hypertension; E78.2 Mixed hyperlipidemia; E03.9 Hypothyroidism, unspecified; Z79.899 Other long term (current) drug therapy
CPT/HCPCS: 36415; 80053; 80061; 82043; 82570; 84439; 84443; 84481; 86803

== ENCOUNTER → 2024-03-17 14:55 | Outpatient (CLI) | payer MEDICARE, BC, SELFPAY ==
--- NOTE | 2024-03-17 14:58 | DI.RAD.S_ITS ---
PROCEDURE: XR HIP W PEL IF DONE LT 2V INDICATIONS: pain. no inj TECHNIQUE: AP pelvis with lateral view of the left hip. COMPARISON: None. FINDINGS: Bones: No acute fractures or dislocations. Pelvic ring appears intact. No suspicious bony lesions. [id number] joint space narrowing the superior hips bilaterally with marginal osteophyte formation and subchondral sclerosis. Degenerative changes are seen in the included spine. Soft tissues: The visualized bowel gas pattern is normal. No suspicious soft tissue calcifications. Surgical clips are seen projecting over the left pelvis. Prominent rectal stool. IMPRESSION: [id number] bilateral hip osteoarthrosis. Approved by: Enrico Monae M.D. on 03/17/2024 at 20:35
== END ==
LOC: RAD 14:57
PROVIDERS: Family Provider Nurse Practitioner; PCP Nurse Practitioner; Referring Provider Family Medicine; Visit Provider Family Medicine
DX: M16.0 Bilateral primary osteoarthritis of hip (principal); M25.552 Pain in left hip
CPT/HCPCS: 73502

== ENCOUNTER 2024-04-19 11:01 | Emergency (ER) | payer MEDICARE, BC, SELFPAY ==
[2024-04-19 11:14] VITALS: BP 174/104; PULSE 133; RESP 16; TEMP 36.7; O2SAT 97; BMI 22.9
--- NOTE | 2024-04-19 11:20 | PC.NURSE ---
Noted tachycardia in triage, 133 BPM. Recommended EKG and evaluation, patient declined both to this RN.
--- NOTE | 2024-04-19 11:35 | PC.NURSE ---
Pt reports that PT told her that she needed to come to ED for MRI, that it had been arranged to be done, to come to the ED for the MRI. Pain was 8-9/10 at PT, having difficulty walking, pain is now 3-10. Pt standing for comfort. Pt HR was elevated in traige, pt stated her HR is always high, pt is in a room and HR remains 129. Pt states that she has HTN as well but does not want to be treated for this at this time. Pt will F/U with PCP, she has an appt later this week.
[2024-04-19 11:41] VITALS: PULSE 129
== END 2024-04-19 11:54 | disposition left against medical advice (07) ==
PROVIDERS: Emergency Provider Student in an Organized Health Care Education/Training Program; Family Provider Nurse Practitioner; PCP Family Medicine
DX: M54.50 Low back pain, unspecified (principal)
CPT/HCPCS: 99281

== ENCOUNTER → 2024-04-20 17:18 | Outpatient (CLI) | payer MEDICARE, BC, SELFPAY ==
--- NOTE | 2024-04-20 17:20 | DI.MRI.S_ITS ---
PROCEDURE: MR LUMBAR SPINE WO CON INDICATIONS: back px, difficulty voiding urine, px from back rad to groin TECHNIQUE: Noncontrast sagittal T1 spin echo and T2 fast echo, sagittal STIR, and T2 fast spin echo through the lumbar spine. In cases with scoliosis, additional coronal T2 fast spin echo may be performed. COMPARISON: None. FINDINGS: Image quality: Excellent. Alignment and Curvature: There is grade I L3 on L4 anterolisthesis. Bone Marrow: No acute compression deformities. There is extensive reactive endplate change throughout the lumbar spine. Spinal Cord: Conus medullaris terminates at the L1 level. Visualized cord demonstrates normal signal and size. Paraspinous Soft Tissues: There is a questionable ill-defined fat containing mass within the right inferior perinephric space versus variable T2 signal intensity within the retroperitoneal fat (series 5/image 19). A fluid fluid level is present within a cystic lesion within the superior pole of the left kidney. T12-L1: Severe disc desiccation and height loss. Moderate facet ligamentum flavum hypertrophy. No canal stenosis. Moderate right and mild left foraminal stenosis. L1-L2: Severe disc desiccation and height loss. Moderate facet ligamentum flavum hypertrophy. No canal stenosis. Moderate bilateral foraminal stenosis. L2-L3: Severe disc desiccation and height loss. Broad-based disc bulge. Mild facet ligamentum flavum hypertrophy. Mild canal stenosis. Moderate bilateral foraminal stenosis. L3-L4: Anterolisthesis. Severe disc desiccation and height loss. Severe facet ligamentum flavum hypertrophy. Severe canal stenosis. There is a left paracentral disc protrusion which measures 0.7 x 1.3 x 0.8 cm (series 6/image 6 and series 2/image 9). This narrows the left lateral recess. The canal measures less than 4 mm in AP diameter. Moderate bilateral foraminal stenosis with flattening of the bilateral exiting nerve roots. L4-L5: Severe disc desiccation and height loss. Severe facet ligamentum flavum hypertrophy. Moderate canal stenosis. Mild bilateral foraminal stenosis. L5-S1: Severe disc desiccation and height loss. Broad-based disc bulge. Severe facet ligamentum flavum hypertrophy. Mild canal stenosis. A fat signal right paracentral mass is present within the extra medullary space which results in leftward displacement of the thecal sac and moderate to severe canal stenosis. (series 6/image 13 and series 3/image 7) there is moderate left and mild right foraminal stenosis. IMPRESSION: 1. Multilevel severe disc desiccation, height loss, and reactive endplate changes. 2. Anterolisthesis, severe facet and ligamentum flavum hypertrophy and broad-based disc bulge at L3-4 with severe resultant canal stenosis. The AP diameter of the canal is less than 4 mm. 3. Left paracentral disc protrusion at L3-4 with narrowing of the left lateral recess. 4. Fat signal mass within the right paracentral region at L5-S1. This does not have the characteristic appearance of an extruded disc fragment. Contrast enhanced MRI of the lumbar spine recommended to further characterize this finding. 5. Fluid fluid level within a cystic lesion in the left upper renal pole. Further characterization with ultrasound or renal mass protocol CT recommended. 6. Questionable fatty mass within the right pararenal space versus variation in T2 signal of the retroperitoneal fat. CT or contrast MRI of this region could be used to further characterize this finding. Dictated by: Lissett Sosa M.D. on 04/21/2024 at 8:35 Approved by: Lissett Sosa M.D. on 04/21/2024 at 9:11
== END ==
PROVIDERS: Family Provider Nurse Practitioner; PCP Family Medicine; Referring Provider Family Medicine; Visit Provider Family Medicine
DX: M51.26 Other intervertebral disc displacement, lumbar region (principal); M51.36 Other intervertebral disc degeneration, lumbar region; M47.816 Spondylosis without myelopathy or radiculopathy, lumbar region; M48.061 Spinal stenosis, lumbar region without neurogenic claudication; M43.16 Spondylolisthesis, lumbar region; N28.9 Disorder of kidney and ureter, unspecified; M51.37 Other intervertebral disc degeneration, lumbosacral region; M47.817 Spondylosis without myelopathy or radiculopathy, lumbosacral region; M48.07 Spinal stenosis, lumbosacral region; M48.8X7 Other specified spondylopathies, lumbosacral region; M54.9 Dorsalgia, unspecified; N39.8 Other specified disorders of urinary system
CPT/HCPCS: 72148

== ENCOUNTER → 2024-06-09 12:31 | Outpatient (CLI) | payer MEDICARE, BC, SELFPAY ==
--- NOTE | 2024-06-09 12:33 | DI.CT.S_ITS ---
PROCEDURE: CT ABDOMEN RENAL PROTOCOL INDICATIONS: Poss Perarenal mass, fluid collection per MRI TECHNIQUE: Optional 5 mm thick noncontrast images acquired from the diaphragm to the iliac crests. After the administration of intravenous contrast, 5 mm thick images again acquired from the diaphragm to the iliac crests in the arterial and urographic phases. 5 mm thick coronal and sagittal reformats were then acquired. For radiation dose reduction, the following was used: automated exposure control, adjustment of mA and/or kV according to patient size. COMPARISON: [facility], MR, MR LUMBAR SPINE WO CON, 04/20/2024, 17:26. FINDINGS: Image quality: Diagnostic Lower chest: Basal atelectasis. Small hiatal hernia. Liver: Unremarkable Gallbladder and biliary system: Unremarkable, nondilated Pancreas: No ductal dilation Spleen: Nonenlarged Adrenals: No discrete nodule Kidneys: Right renal posterior cyst is seen with a few thin septations. Left posterior region possible cystic lesion measuring 1.3 cm. There may be a thin septation at the inferior aspect measuring 3 mm (4/36) other subcentimeter lesions are too small to characterize. No definite enhancing solid renal mass. Tiny nonobstructing renal calculi are seen. Mild bilateral pelviectasis without discrete obstructing stone. No enhancing abnormalities seen in the right perirenal space. Vessels and lymph nodes: The main portal vein is patent. No abdominal aortic aneurysm. No pathologic lymph nodes by size criteria. Bowel and peritoneum: No acute small bowel obstruction. No pathologic ascites. Body wall: Unremarkable Bones: Degenerative changes. L3 on L4 anterolisthesis with disc uncovering and likely canal stenosis. IMPRESSION: Left posterior suspected renal cyst with a thin septation measuring about 3 mm. Bosniak 2 F. Six-month follow-up recommended. These are usually benign or indolent findings. No solid renal mass. Other findings as above. Dictated by: Clifton Hopper M.D. on 06/09/2024 at 16:59 Approved by: Clifton Hopper M.D. on 06/09/2024 at 17:08
[2024-06-09 13:10] LABS: Estimated Glomerular Filt Rate > 60 mL/min (>60)
== END ==
LOC: CT 12:32
PROVIDERS: Family Provider Nurse Practitioner; PCP Family Medicine; Referring Provider Radiology Diagnostic Radiology; Visit Provider Family Medicine
DX: R22.2 Localized swelling, mass and lump, trunk (principal); R19.8 Other specified symptoms and signs involving the digestive system and abdomen; K44.9 Diaphragmatic hernia without obstruction or gangrene; N28.89 Other specified disorders of kidney and ureter
CPT/HCPCS: 36415; 74170; 82565; Q9967

== ENCOUNTER 2024-07-30 15:15 | Outpatient (RCR) | payer MEDICARE, BC, SELFPAY ==
--- NOTE | 2024-04-19 13:21 | PT-OP ANOTE ---
Pt arrived as scheduled for initial evaluation. Upon coming back from the waiting room, pt was struggling to walk under her own power, required to hang on to therapist's arm, stopped multiple times over the ~100' to the treatment room. During subjective history, pt made off-hand mention about recent difficulty with bladder voiding. Upon further inquiry, pt noted that she often has saddle numbness. Due to red flags for cauda equina syndrome, therapist stopped evaluation and strongly recommend pt go to the ED for further assessment. It unfortunately appears there was some confusion at the ED, and pt left before being seen by a physician. Camilla, the triage nurse for pt's PCP Dr Das, phoned therapist to get clearer picture of what was going on. Following discussion, Camilla noted she would contact DI and attempt to get pt in for an MRI. Pending time of MRI, may attempt to follow-up with true PT assessment following imaging, will likely not perform until potentially cleared with MRI. Then therapist phoned and spoke to the patient, clarifying that if cleared with MRI, she can continue with PT, but would prefer to place PT on hold until that time. Pt noted understanding.
--- NOTE | 2024-04-30 14:30 | PT.OIE ---
Current Diagnoses Pain in left hip (04/30/24) Stiffness of other specified joint, not elsewhere classified (04/30/24) Lumbago with sciatica, unspecified side (04/30/24) Other abnormalities of gait and mobility (04/30/24) Past Medical History (Last Reviewed 11/11/23 @ 09:48 by KELLEY Aquino) Abnormal mammogram Anxiety about health Hypertension White coat syndrome with diagnosis of hypertension Past Surgical History (Last Reviewed 11/11/23 @ 09:48 by KELLEY Aquino) S/P total abdominal hysterectomy and bilateral salpingo-oophorectomy Visit Care Team Role Provider Type KELLEY Aquino Family Provider Advanced Chocolate Finisher Specialty: [facility] Address: [address] [place] [address], [id number] Email: [email or web address] Wilberto Das DO Attending Provider Physician Primary Care Provider Referring Provider Specialty: [facility] Address: [address] [place] [address], [address], [place], [address] Email: [email or web address] [facility] Initial Evaluation PT-OP-A Visit Information Start: 04/30/24 16:45 Freq: Status: Active Protocol: Document 04/30/24 13:45 DCW (Rec: 04/30/24 16:48 DCW [id number]) Out-Patient Physical Therapy Visit Information Visit Information Visit Type Initial Evaluation Visit Start Time 13:45 Visit Stop Time 14:30 Visit Number 1 Number of GROWTH MEDIA MIXER MUSHROOM Visits 0 Evaluation Information Evaluation Date 04/30/24 PT-OP-B Current Condition Start: 04/30/24 16:45 Freq: Status: Active Protocol: Document 04/30/24 13:45 DCW (Rec: 04/30/24 17:05 DCW [id number]) Current Condition History of Current Condition Onset Date Ten month history Current Complaints Low back pain, hip and leg pain, radicular symptoms History of Current Condition Pt is a 74 year old female presenting to skilled therapy with a complex history of low back and leg pain. Pt initially came in for an initial evaluation on 04/19/24. Upon coming back from the waiting room, pt was struggling to walk under her own power, required to hang on to therapist's arm, stopped multiple times over the ~100' to the treatment room. During subjective history, pt made off-hand mention about recent difficulty with bladder voiding. Upon further inquiry, pt noted that she often has saddle numbness. Due to red flags for cauda equina syndrome, therapist stopped evaluation and strongly recommend pt go to the ED for further assessment. Following some confusion, pt did eventually receive an MRI (see below). Pt cleared to return for skilled PT. Patient comes in now today (04/30/24) feeling much better, walking well under her own power. Still experiencing some difficulty after sitting for extended periods of time, or when first getting up in the morning. Pt reports pain initially began last summer, had some mild back pain, but then became sick with Covid, which worsened her pain. Pt then in August received a Covid vaccination, and then felt like symptoms worsened again. Pt was experiencing severe pain in low back and down the back of her legs, in addition (as described above) to apparent saddle numbness and difficulty voiding her bladder due to increased muscle tone. Pt notes today that she felt she just has to finally recover from illness, get the infection out of her. Pt is concerned that her symptoms might be a sign of long Covid. Pt would like to return to the gym without pain to help build strength back up. Prior Treatments and Tests Lumbar MRI: IMPRESSION: 1. Multilevel severe disc desiccation, height loss, and reactive endplate changes. 2. Anterolisthesis, severe facet and ligamentum flavum hypertrophy and broad-based disc bulge at L3-4 with severe resultant canal stenosis. The AP diameter of the canal is less than 4 mm. 3. Left paracentral disc protrusion at L3-4 with narrowing of the left lateral recess. 4. Fat signal mass within the right paracentral region at L5-S1. This does not have the characteristic appearance of an extruded disc fragment. Contrast enhanced MRI of the lumbar spine recommended to further characterize this finding. 5. Fluid fluid level within a cystic lesion in the left upper renal pole. Further characterization with ultrasound or renal mass protocol CT recommended. 6. Questionable fatty mass within the right pararenal space versus variation in T2 signal of the retroperitoneal fat. CT or contrast MRI of this region could be used to further characterize this finding. per Sary Wright on 04/21/2024 PT-OP-C Subjective Start: 04/30/24 16:45 Freq: Status: Active Protocol: Document 04/30/24 13:45 DCW (Rec: 04/30/24 16:48 DCW [id number]) OP-PT Subjective Patient Comments Patient Comments I'm actually feeling a lot better. I'm still having pain, but it's less frequent and less severe. PT-OP-F Manual Assessment Start: 04/30/24 16:45 Freq: Status: Active Protocol: Document 04/30/24 13:45 DCW (Rec: 04/30/24 17:05 DCW [id number]) Manual Assessments Soft Tissue Assessment Soft Tissue Mobility Assessment Mild-moderate tenderness with palpation along low back and glutes PT-OP-K Range of Motion Start: 04/30/24 16:45 Freq: Status: Active Protocol: Document 04/30/24 13:45 DCW (Rec: 04/30/24 17:05 DCW [id number]) Lumbar Spine Range of Motion Lumbar Spine Active Degrees Testing Position Standing Flexion 35 Extension 15 PT-OP-L Special Tests Start: 04/30/24 16:45 Freq: Status: Active Protocol: Document 04/30/24 13:45 DCW (Rec: 04/30/24 17:05 DCW [id number]) Special Tests Lumbar Spine Special Tests Compression Test Results feels good PT-OP-M Strength Start: 04/30/24 16:45 Freq: Status: Active Protocol: Document 04/30/24 13:45 DCW (Rec: 04/30/24 17:05 DCW [id number]) Hip Strength Hip Manual Muscle Testing Right Flexion (L2) 4- Good- Extension (S1) 4- Good- Abduction 4- Good- Adduction 4- Good- Left Flexion (L2) 4- Good- Extension (S1) 4- Good- Abduction 4 Good Adduction 4 Good Knee Strength Knee Manual Muscle Testing Right Flexion (S2) 4+ Good+ Extension (L3) 4 Good Left Flexion (S2) 4+ Good+ Extension (L3) 4 Good PT-OP-Q Treatments Start: 04/30/24 16:45 Freq: Status: Active Protocol: Document 04/30/24 13:45 DCW (Rec: 04/30/24 16:50 DCW [id number]) Therapeutic Exercises Supine Exercises Bridging Supine Exercise Name Bridging SLR Supine Exercise Name PPT /c SLR Marching Supine Exercise Name PPT /c Marching PPT Supine Exercise Name PPT /c abdominal bracing Reps/Minutes 5 hold Sitting Exercises Piriformis Sitting Exercise Name Seated figure-4 Piriformis stretch PT-OP-T Assessment and Plan Start: 04/30/24 16:45 Freq: Status: Active Protocol: Document 04/30/24 13:45 DCW (Rec: 04/30/24 17:08 DCW [id number]) Physical Therapy Assessment Rehab Potential Rehabilitation Potential Good Evaluation Complexity Number of Personal Factors/Comorbidities 3 or More Number of Body Systems Impaired 3 Clinical Presentation at Evaluation Unstable Impairments Impairments Activity Tolerance,Functional Activities,Functional Mobility ,Pain,ROM,Soft Tissue Mobility ,Strength,Tone Goals Three Impairment Pt fair-poor with abdominal bracing Yoker Machine Operator Goal (LTG) Pt to improve ability to brace abdominal muscles and increase core strength in order to improve support for low back LTG Duration 06/30/24 Two Impairment Bilateral hip weakness Yoker Machine Operator Goal (LTG) Pt to demonstrate improving hip strength by testing with MMT at least 4/5 in all planes bilaterally in order to improve ability to stand/walk when first getting up in the morning LTG Duration 06/30/24 One Impairment Pt does not have an approrpiate home exercise program Short Term Goal (STG) Pt to be independent and compliant with an appropriate HEP STG Duration 05/30/24 Assessment Summary Assessment Pt presents with signs and symptoms consistent with referring diagnosis. Pt is doing much better currently than she had been at the time of her first attempted evaluation (04/19/24). Pt continues to have some increased pain and difficulty walking when first standing up after extended sitting or gettin gup in the morning, but pain has been less severe and less frequent. Pt should benefit from skilled therapy focusing on improving core and LE strength, gentle lumbar mobility, flexibility, and increasing activity tolerance. Physical Therapy Plan Frequency and Duration Frequency of Treatment 2x/Week Plan of Care Start Date 04/30/24 Plan of Care End Date 06/30/24 Therapeutic Interventions Therapeutic Interventions Home Exercise Program,Manual Therapy,Neuromuscular Re- education,Patient/Caregiver Education,Self-Care/Home Management,Soft Tissue Mobilization,Therapeutic Activities,Therapeutic Exercises Modalities Cold Pack/Ice Massage,Electric Stimulation,Hot Packs, Ultrasound Next Visit Focus/Plan Next Note Type Treatment Note Next Visit Plan Core/LE strengthening, lumbar mobility
--- NOTE | 2024-04-30 14:30 | PT.OPPOC ---
Physical, Occupational & Speech Therapy At [facility] Current Diagnoses Pain in left hip (04/30/24) Stiffness of other specified joint, not elsewhere classified (04/30/24) Lumbago with sciatica, unspecified side (04/30/24) Other abnormalities of gait and mobility (04/30/24) Visit Care Team Role Provider Type KELLEY Aquino Family Provider Advanced Behavioral Modification Assistant Specialty: Family Practice Address: [address] [place] [address], [address] Email: [email or web address] Wilberto Das DO Attending Provider Physician Primary Care Provider Referring Provider Specialty: [facility] Address: [address] [place] [address], [address], [address] Email: [email or web address] Plan Of Care PT-OP-T Assessment and Plan Start: 04/30/24 16:45 Freq: Status: Active Protocol: Document 04/30/24 13:45 DCW (Rec: 04/30/24 17:08 DCW [id number]) Physical Therapy Assessment Rehab Potential Rehabilitation Potential Good Evaluation Complexity Number of Personal Factors/Comorbidities 3 or More Number of Body Systems Impaired 3 Clinical Presentation at Evaluation Unstable Impairments Impairments Activity Tolerance,Functional Activities,Functional Mobility ,Pain,ROM,Soft Tissue Mobility ,Strength,Tone Goals Three Impairment Pt fair-poor with abdominal bracing Associate Faculty Goal (LTG) Pt to improve ability to brace abdominal muscles and increase core strength in order to improve support for low back LTG Duration 06/30/24 Two Impairment Bilateral hip weakness Custodial Goal (LTG) Pt to demonstrate improving hip strength by testing with MMT at least 4/5 in all planes bilaterally in order to improve ability to stand/walk when first getting up in the morning LTG Duration 06/30/24 One Impairment Pt does not have an approrpiate home exercise program Short Term Goal (STG) Pt to be independent and compliant with an appropriate HEP STG Duration 05/30/24 Assessment Summary Assessment Pt presents with signs and symptoms consistent with referring diagnosis. Pt is doing much better currently than she had been at the time of her first attempted evaluation (04/19/24). Pt continues to have some increased pain and difficulty walking when first standing up after extended sitting or gettin gup in the morning, but pain has been less severe and less frequent. Pt should benefit from skilled therapy focusing on improving core and LE strength, gentle lumbar mobility, flexibility, and increasing activity tolerance. Physical Therapy Plan Frequency and Duration Frequency of Treatment 2x/Week Plan of Care Start Date 04/30/24 Plan of Care End Date 06/30/24 Therapeutic Interventions Therapeutic Interventions Home Exercise Program,Manual Therapy,Neuromuscular Re- education,Patient/Caregiver Education,Self-Care/Home Management,Soft Tissue Mobilization,Therapeutic Activities,Therapeutic Exercises Modalities Cold Pack/Ice Massage,Electric Stimulation,Hot Packs, Ultrasound Next Visit Focus/Plan Next Note Type Treatment Note Next Visit Plan Core/LE strengthening, lumbar mobility Plan of Care Dates Plan of Care Start Date 04/30/24 Plan of Care End Date 06/30/24 Electronically Signed by: Tc Michaels, PT 05/03/24 0934 If you are in agreement with this Plan of Care, please return a signed and dated copy. I have reviewed this Plan of Care and certify that the skilled therapy services above are required to meet the patient?s needs. Physician Signature Date Printed Name and Credentials Clinical Instructor Signature Printed Name and Credentials
--- NOTE | 2024-05-06 12:00 | PT.OTN ---
Current Diagnoses Pain in left hip (05/06/24) Stiffness of other specified joint, not elsewhere classified (05/06/24) Lumbago with sciatica, unspecified side (05/06/24) Other abnormalities of gait and mobility (05/06/24) Physical Therapy Treatment Note PT-OP-A Visit Information Start: 04/30/24 16:45 Freq: Status: Active Protocol: Document 05/06/24 11:15 DCW (Rec: 05/06/24 12:00 DCW [id number]) Out-Patient Physical Therapy Visit Information Visit Information Visit Type Treatment Note Visit Start Time 11:15 Visit Stop Time 12:00 Visit Number 2 Number of EXPERIMENTAL WELDER Visits 0 Evaluation Information Evaluation Date 04/30/24 PT-OP-B Current Condition Start: 04/30/24 16:45 Freq: Status: Active Protocol: Document 04/30/24 13:45 DCW (Rec: 04/30/24 17:05 DCW [id number]) Current Condition History of Current Condition Onset Date Ten month history Current Complaints Low back pain, hip and leg pain, radicular symptoms History of Current Condition Pt is a 74 year old female presenting to skilled therapy with a complex history of low back and leg pain. Pt initially came in for an initial evaluation on 04/19/24. Upon coming back from the waiting room, pt was struggling to walk under her own power, required to hang on to therapist's arm, stopped multiple times over the ~100' to the treatment room. During subjective history, pt made off-hand mention about recent difficulty with bladder voiding. Upon further inquiry, pt noted that she often has saddle numbness. Due to red flags for cauda equina syndrome, therapist stopped evaluation and strongly recommend pt go to the ED for further assessment. Following some confusion, pt did eventually receive an MRI (see below). Pt cleared to return for skilled PT. Patient comes in now today (04/30/24) feeling much better, walking well under her own power. Still experiencing some difficulty after sitting for extended periods of time, or when first getting up in the morning. Pt reports pain initially began last summer, had some mild back pain, but then became sick with Covid, which worsened her pain. Pt then in August received a Covid vaccination, and then felt like symptoms worsened again. Pt was experiencing severe pain in low back and down the back of her legs, in addition (as described above) to apparent saddle numbness and difficulty voiding her bladder due to increased muscle tone. Pt notes today that she felt she just has to finally recover from illness, get the infection out of her. Pt is concerned that her symptoms might be a sign of long Covid. Pt would like to return to the gym without pain to help build strength back up. Prior Treatments and Tests Lumbar MRI: IMPRESSION: 1. Multilevel severe disc desiccation, height loss, and reactive endplate changes. 2. Anterolisthesis, severe facet and ligamentum flavum hypertrophy and broad-based disc bulge at L3-4 with severe resultant canal stenosis. The AP diameter of the canal is less than 4 mm. 3. Left paracentral disc protrusion at L3-4 with narrowing of the left lateral recess. 4. Fat signal mass within the right paracentral region at L5-S1. This does not have the characteristic appearance of an extruded disc fragment. Contrast enhanced MRI of the lumbar spine recommended to further characterize this finding. 5. Fluid fluid level within a cystic lesion in the left upper renal pole. Further characterization with ultrasound or renal mass protocol CT recommended. 6. Questionable fatty mass within the right pararenal space versus variation in T2 signal of the retroperitoneal fat. CT or contrast MRI of this region could be used to further characterize this finding. per Sary Wright on 04/21/2024 PT-OP-C Subjective Start: 04/30/24 16:45 Freq: Status: Active Protocol: Document 05/06/24 11:15 DCW (Rec: 05/06/24 12:00 DCW [id number]) OP-PT Subjective Patient Comments Patient Comments Pt notes she is still doing quite a bit better. PT-OP-F Manual Assessment Start: 04/30/24 16:45 Freq: Status: Active Protocol: Document 04/30/24 13:45 DCW (Rec: 04/30/24 17:05 DCW [id number]) Manual Assessments Soft Tissue Assessment Soft Tissue Mobility Assessment Mild-moderate tenderness with palpation along low back and glutes PT-OP-K Range of Motion Start: 04/30/24 16:45 Freq: Status: Active Protocol: Document 04/30/24 13:45 DCW (Rec: 04/30/24 17:05 DCW [id number]) Lumbar Spine Range of Motion Lumbar Spine Active Degrees Testing Position Standing Flexion 35 Extension 15 PT-OP-L Special Tests Start: 04/30/24 16:45 Freq: Status: Active Protocol: Document 04/30/24 13:45 DCW (Rec: 04/30/24 17:05 DCW [id number]) Special Tests Lumbar Spine Special Tests Compression Test Results feels good PT-OP-M Strength Start: 04/30/24 16:45 Freq: Status: Active Protocol: Document 04/30/24 13:45 DCW (Rec: 04/30/24 17:05 DCW [id number]) Hip Strength Hip Manual Muscle Testing Right Flexion (L2) 4- Good- Extension (S1) 4- Good- Abduction 4- Good- Adduction 4- Good- Left Flexion (L2) 4- Good- Extension (S1) 4- Good- Abduction 4 Good Adduction 4 Good Knee Strength Knee Manual Muscle Testing Right Flexion (S2) 4+ Good+ Extension (L3) 4 Good Left Flexion (S2) 4+ Good+ Extension (L3) 4 Good PT-OP-Q Treatments Start: 04/30/24 16:45 Freq: Status: Active Protocol: Document 05/06/24 11:15 DCW (Rec: 05/06/24 12:00 DCW [id number]) Cardio Equipment Recumbent Elliptical (BiodFruitfulll) Duration (Minutes) 4 Resistance 4 Seat Position 6 Gym Equipment Therapeutic Ball LTR Exercise Details LTR Ball Size/Color Blue - 45 cm Comments HEP Therapeutic Exercises Sidelying Exercises Reverse Clamshell Sidelying Exercise Name Reverse Clamshell Comments HEP Clamshell Sidelying Exercise Name Clamshell Comments HEP Standing Exercises Hip Extension Standing Exercise Name Hip Extension Side bilateral Comments HEP Pallof Press Standing Exercise Name Pallof Press Side bilateral Resistance Green Other Exercises Resisted ambulation Other Exercise Name Resisted side-stepping Resistance Green Comments HEP PT-OP-T Assessment and Plan Start: 04/30/24 16:45 Freq: Status: Active Protocol: Document 05/06/24 11:15 DCW (Rec: 05/06/24 12:00 DCW [id number]) Physical Therapy Assessment Impairments Impairments Activity Tolerance,Functional Activities,Functional Mobility ,Pain,ROM,Soft Tissue Mobility ,Strength,Tone Goals Three Impairment Pt fair-poor with abdominal bracing Stoner Out Goal (LTG) Pt to improve ability to brace abdominal muscles and increase core strength in order to improve support for low back LTG Duration 06/30/24 Two Impairment Bilateral hip weakness Retirement Goal (LTG) Pt to demonstrate improving hip strength by testing with MMT at least 4/5 in all planes bilaterally in order to improve ability to stand/walk when first getting up in the morning LTG Duration 06/30/24 One Impairment Pt does not have an appropriate home exercise program Short Term Goal (STG) Pt to be independent and compliant with an appropriate HEP STG Duration 05/30/24 Assessment Summary Assessment Pt continues to feel significantly better, doing well so far with HEP. Feeling like she might be doing well enough for discharge, but wants to try to return to the gym and see how it goes before discharging. Physical Therapy Plan Frequency and Duration Frequency of Treatment 2x/Week Plan of Care Start Date 04/30/24 Plan of Care End Date 06/30/24 Therapeutic Interventions Therapeutic Interventions Home Exercise Program,Manual Therapy,Neuromuscular Re- education,Patient/Caregiver Education,Self-Care/Home Management,Soft Tissue Mobilization,Therapeutic Activities,Therapeutic Exercises Modalities Cold Pack/Ice Massage,Electric Stimulation,Hot Packs, Ultrasound Next Visit Focus/Plan Next Note Type Treatment Note Next Visit Plan Continue to work on core strengthening and lumbar mobility, adjust HEP as needed . Assess effects of pt's return to gym.
--- NOTE | 2024-05-18 12:37 | PT.OTN ---
Current Diagnoses Pain in left hip (05/18/24) Stiffness of other specified joint, not elsewhere classified (05/18/24) Lumbago with sciatica, unspecified side (05/18/24) Other abnormalities of gait and mobility (05/18/24) Physical Therapy Treatment Note PT-OP-A Visit Information Start: 04/30/24 16:45 Freq: Status: Active Protocol: Document 05/18/24 11:27 NBM (Rec: 05/18/24 12:35 NBM [id number]) Out-Patient Physical Therapy Visit Information Visit Information Visit Type Treatment Note Visit Note pt in bathroom when getting from waiting room. Visit Start Time 11:28 Visit Stop Time 12:15 Visit Number 3 Number of COMMERCIAL REAL ESTATE ASSISTANT Visits 1 Evaluation Information Evaluation Date 04/30/24 PT-OP-B Current Condition Start: 04/30/24 16:45 Freq: Status: Active Protocol: Document 04/30/24 13:45 DCW (Rec: 04/30/24 17:05 DCW [id number]) Current Condition History of Current Condition Onset Date Ten month history Current Complaints Low back pain, hip and leg pain, radicular symptoms History of Current Condition Pt is a 74 year old female presenting to skilled therapy with a complex history of low back and leg pain. Pt initially came in for an initial evaluation on 04/19/24. Upon coming back from the waiting room, pt was struggling to walk under her own power, required to hang on to therapist's arm, stopped multiple times over the ~100' to the treatment room. During subjective history, pt made off-hand mention about recent difficulty with bladder voiding. Upon further inquiry, pt noted that she often has saddle numbness. Due to red flags for cauda equina syndrome, therapist stopped evaluation and strongly recommend pt go to the ED for further assessment. Following some confusion, pt did eventually receive an MRI (see below). Pt cleared to return for skilled PT. Patient comes in now today (04/30/24) feeling much better, walking well under her own power. Still experiencing some difficulty after sitting for extended periods of time, or when first getting up in the morning. Pt reports pain initially began last summer, had some mild back pain, but then became sick with Covid, which worsened her pain. Pt then in August received a Covid vaccination, and then felt like symptoms worsened again. Pt was experiencing severe pain in low back and down the back of her legs, in addition (as described above) to apparent saddle numbness and difficulty voiding her bladder due to increased muscle tone. Pt notes today that she felt she just has to finally recover from illness, get the infection out of her. Pt is concerned that her symptoms might be a sign of long Covid. Pt would like to return to the gym without pain to help build strength back up. Prior Treatments and Tests Lumbar MRI: IMPRESSION: 1. Multilevel severe disc desiccation, height loss, and reactive endplate changes. 2. Anterolisthesis, severe facet and ligamentum flavum hypertrophy and broad-based disc bulge at L3-4 with severe resultant canal stenosis. The AP diameter of the canal is less than 4 mm. 3. Left paracentral disc protrusion at L3-4 with narrowing of the left lateral recess. 4. Fat signal mass within the right paracentral region at L5-S1. This does not have the characteristic appearance of an extruded disc fragment. Contrast enhanced MRI of the lumbar spine recommended to further characterize this finding. 5. Fluid fluid level within a cystic lesion in the left upper renal pole. Further characterization with ultrasound or renal mass protocol CT recommended. 6. Questionable fatty mass within the right pararenal space versus variation in T2 signal of the retroperitoneal fat. CT or contrast MRI of this region could be used to further characterize this finding. per Sary Wright on 04/21/2024 PT-OP-C Subjective Start: 04/30/24 16:45 Freq: Status: Active Protocol: Document 05/18/24 11:27 [facility] (Rec: 05/18/24 12:35 [facility] [id number]) OP-PT Subjective Patient Comments Patient Comments Annika reports no pain and exercises are helping. She's trying to take ibuprofen as little as possible and last took it about 6 hours ago, which is about how long it usually lasts. Pain is worst in the morning. Pt went to gym last Fri and did shortened reps but it was a disaster, a mistake and she was sore for a few days after. Getting in and out of the car is less painful and many of the ex's that used to hurt don't hurt so much. PT-OP-F Manual Assessment Start: 04/30/24 16:45 Freq: Status: Active Protocol: Document 04/30/24 13:45 DCW (Rec: 04/30/24 17:05 DCW [id number]) Manual Assessments Soft Tissue Assessment Soft Tissue Mobility Assessment Mild-moderate tenderness with palpation along low back and glutes PT-OP-K Range of Motion Start: 04/30/24 16:45 Freq: Status: Active Protocol: Document 04/30/24 13:45 DCW (Rec: 04/30/24 17:05 DCW [id number]) Lumbar Spine Range of Motion Lumbar Spine Active Degrees Testing Position Standing Flexion 35 Extension 15 PT-OP-L Special Tests Start: 04/30/24 16:45 Freq: Status: Active Protocol: Document 04/30/24 13:45 DCW (Rec: 04/30/24 17:05 DCW [id number]) Special Tests Lumbar Spine Special Tests Compression Test Results feels good PT-OP-M Strength Start: 04/30/24 16:45 Freq: Status: Active Protocol: Document 04/30/24 13:45 DCW (Rec: 04/30/24 17:05 DCW [id number]) Hip Strength Hip Manual Muscle Testing Right Flexion (L2) 4- Good- Extension (S1) 4- Good- Abduction 4- Good- Adduction 4- Good- Left Flexion (L2) 4- Good- Extension (S1) 4- Good- Abduction 4 Good Adduction 4 Good Knee Strength Knee Manual Muscle Testing Right Flexion (S2) 4+ Good+ Extension (L3) 4 Good Left Flexion (S2) 4+ Good+ Extension (L3) 4 Good PT-OP-Q Treatments Start: 04/30/24 16:45 Freq: Status: Active Protocol: Document 05/18/24 11:27 NBM (Rec: 05/18/24 12:35 NBM [id number]) Cardio Equipment Recumbent Elliptical (Biodex) Duration (Minutes) 4 Resistance 4 Seat Position 6 Gym Equipment Therapeutic Ball LTR Exercise Details LTR - no ball today Ball Size/Color Blue - 45 cm Comments HEP Therapeutic Exercises Supine Exercises Bridging Supine Exercise Name Bridging SLR Supine Exercise Name PPT /c SLR Marching Supine Exercise Name PPT /c Marching PPT Supine Exercise Name PPT /c abdominal bracing Reps/Minutes 5 hold Sidelying Exercises Reverse Clamshell Sidelying Exercise Name Reverse Clamshell Side right Reps/Minutes x10 Comments HEP, pt declines L d/t L hip discomfort Clamshell Sidelying Exercise Name Clamshell Side right Comments HEP, pt declines L d/t L hip discomfort Sitting Exercises Piriformis Sitting Exercise Name Seated Piriformis stretch 1. figure-4 2 knee to opp corina Side bilateral Reps/Minutes 2x30s ea Comments end of session, L hip symptoms resolve Standing Exercises Hip Extension Standing Exercise Name Hip Extension Side bilateral Comments HEP Other Exercises Resisted ambulation Other Exercise Name Resisted side-stepping Resistance Green Comments HEP review PT-OP-T Assessment and Plan Start: 04/30/24 16:45 Freq: Status: Active Protocol: Document 05/18/24 11:27 [facility] (Rec: 05/18/24 12:35 [facility] [id number]) Physical Therapy Assessment Goals Three Impairment Pt fair-poor with abdominal bracing Senior Data Mining Analyst Goal (LTG) Pt to improve ability to brace abdominal muscles and increase core strength in order to improve support for low back LTG Duration 06/30/24 Two Impairment Bilateral hip weakness Retirement Goal (LTG) Pt to demonstrate improving hip strength by testing with MMT at least 4/5 in all planes bilaterally in order to improve ability to stand/walk when first getting up in the morning LTG Duration 06/30/24 One Impairment Pt does not have an approrpiate home exercise program Short Term Goal (STG) Pt to be independent and compliant with an appropriate HEP STG Duration 05/30/24 Assessment Summary Assessment Annika reports that she was sore for at lesat two days after attempting gym even with limiting herself to 3 repetitions of several ex's. She did 20 reps of knee extension and really felt it. Pt continues to report improvement with overall symptoms. Treatment focus on HEP review. Edu to pt re: relationship between Transverse abdominis, diaphragm, and pelvic floor with emphasis on no breathholding with ex's. Pt requires consistent cues for breathholding and breathwork with supine and sidelying ex's . She needs cues for PPT w/ LTR. She also requires cues for resisted ambulation for neutral foot position L>R. L hip discomfort with sidelying clamshell and reverse clamshell resolves with Piriformis stretching end of session. Pt declines ice end of session. Physical Therapy Plan Frequency and Duration Frequency of Treatment 2x/Week Plan of Care Start Date 04/30/24 Plan of Care End Date 06/30/24 Therapeutic Interventions Therapeutic Interventions Home Exercise Program,Manual Therapy,Neuromuscular Re- education,Patient/Caregiver Education,Self-Care/Home Management,Soft Tissue Mobilization,Therapeutic Activities,Therapeutic Exercises Modalities Cold Pack/Ice Massage,Electric Stimulation,Hot Packs, Ultrasound Next Visit Focus/Plan Next Note Type Treatment Note Next Visit Plan Continue to work on core strengthening and lumbar mobility, adjust HEP as needed .
--- NOTE | 2024-05-26 16:18 | PT.OTN ---
Current Diagnoses Pain in left hip (05/26/24) Stiffness of other specified joint, not elsewhere classified (05/26/24) Lumbago with sciatica, unspecified side (05/26/24) Other abnormalities of gait and mobility (05/26/24) Physical Therapy Treatment Note PT-OP-A Visit Information Start: 04/30/24 16:45 Freq: Status: Active Protocol: Document 05/26/24 13:53 NBM (Rec: 05/26/24 14:48 NBM [id number]) Out-Patient Physical Therapy Visit Information Visit Information Visit Type Treatment Note Visit Start Time 13:54 Visit Stop Time 14:46 Visit Number 4 Number of HEAVY EQUIPMENT SUPERVISOR Visits 2 Evaluation Information Evaluation Date 04/30/24 PT-OP-B Current Condition Start: 04/30/24 16:45 Freq: Status: Active Protocol: Document 04/30/24 13:45 DCW (Rec: 04/30/24 17:05 DCW [id number]) Current Condition History of Current Condition Onset Date Ten month history Current Complaints Low back pain, hip and leg pain, radicular symptoms History of Current Condition Pt is a 74 year old female presenting to skilled therapy with a complex history of low back and leg pain. Pt initially came in for an initial evaluation on 04/19/24. Upon coming back from the waiting room, pt was struggling to walk under her own power, required to hang on to therapist's arm, stopped multiple times over the ~100' to the treatment room. During subjective history, pt made off-hand mention about recent difficulty with bladder voiding. Upon further inquiry, pt noted that she often has saddle numbness. Due to red flags for cauda equina syndrome, therapist stopped evaluation and strongly recommend pt go to the ED for further assessment. Following some confusion, pt did eventually receive an MRI (see below). Pt cleared to return for skilled PT. Patient comes in now today (04/30/24) feeling much better, walking well under her own power. Still experiencing some difficulty after sitting for extended periods of time, or when first getting up in the morning. Pt reports pain initially began last summer, had some mild back pain, but then became sick with Covid, which worsened her pain. Pt then in August received a Covid vaccination, and then felt like symptoms worsened again. Pt was experiencing severe pain in low back and down the back of her legs, in addition (as described above) to apparent saddle numbness and difficulty voiding her bladder due to increased muscle tone. Pt notes today that she felt she just has to finally recover from illness, get the infection out of her. Pt is concerned that her symptoms might be a sign of long Covid. Pt would like to return to the gym without pain to help build strength back up. Prior Treatments and Tests Lumbar MRI: IMPRESSION: 1. Multilevel severe disc desiccation, height loss, and reactive endplate changes. 2. Anterolisthesis, severe facet and ligamentum flavum hypertrophy and broad-based disc bulge at L3-4 with severe resultant canal stenosis. The AP diameter of the canal is less than 4 mm. 3. Left paracentral disc protrusion at L3-4 with narrowing of the left lateral recess. 4. Fat signal mass within the right paracentral region at L5-S1. This does not have the characteristic appearance of an extruded disc fragment. Contrast enhanced MRI of the lumbar spine recommended to further characterize this finding. 5. Fluid fluid level within a cystic lesion in the left upper renal pole. Further characterization with ultrasound or renal mass protocol CT recommended. 6. Questionable fatty mass within the right pararenal space versus variation in T2 signal of the retroperitoneal fat. CT or contrast MRI of this region could be used to further characterize this finding. per Lissett Sosa M.D . on 04/21/2024 PT-OP-C Subjective Start: 04/30/24 16:45 Freq: Status: Active Protocol: Document 05/26/24 13:53 NBM (Rec: 05/26/24 14:48 [facility] [id number]) OP-PT Subjective Patient Comments Patient Comments Annika reports she had an episode of pain last night from getting out of her bed wrong and trying to get dog's collar off. Pain started inside thighs went around and went on for a while. She had to hold wall to get to bathroom to take aspirin due to pain all over. Today pt has had pain behind thights. Pt wonders about bathing dog at elevated height. SHe winces standing up from waiting room and reports 3/10 B hip pain. PT-OP-F Manual Assessment Start: 04/30/24 16:45 Freq: Status: Active Protocol: Document 04/30/24 13:45 DCW (Rec: 04/30/24 17:05 DCW [id number]) Manual Assessments Soft Tissue Assessment Soft Tissue Mobility Assessment Mild-moderate tenderness with palpation along low back and glutes PT-OP-K Range of Motion Start: 04/30/24 16:45 Freq: Status: Active Protocol: Document 04/30/24 13:45 DCW (Rec: 04/30/24 17:05 DCW [id number]) Lumbar Spine Range of Motion Lumbar Spine Active Degrees Testing Position Standing Flexion 35 Extension 15 PT-OP-L Special Tests Start: 04/30/24 16:45 Freq: Status: Active Protocol: Document 04/30/24 13:45 DCW (Rec: 04/30/24 17:05 DCW [id number]) Special Tests Lumbar Spine Special Tests Compression Test Results feels good PT-OP-M Strength Start: 04/30/24 16:45 Freq: Status: Active Protocol: Document 04/30/24 13:45 DCW (Rec: 04/30/24 17:05 DCW [id number]) Hip Strength Hip Manual Muscle Testing Right Flexion (L2) 4- Good- Extension (S1) 4- Good- Abduction 4- Good- Adduction 4- Good- Left Flexion (L2) 4- Good- Extension (S1) 4- Good- Abduction 4 Good Adduction 4 Good Knee Strength Knee Manual Muscle Testing Right Flexion (S2) 4+ Good+ Extension (L3) 4 Good Left Flexion (S2) 4+ Good+ Extension (L3) 4 Good PT-OP-Q Treatments Start: 04/30/24 16:45 Freq: Status: Active Protocol: Document 05/26/24 13:53 NBM (Rec: 05/26/24 14:48 NBM [id number]) Cardio Equipment Recumbent Elliptical ([employer]) Duration (Minutes) 9 Resistance 4 Seat Position 6 Other Pt pn 5/10 after getting up from machine. Therapeutic Exercises Supine Exercises Hamstring Supine Exercise Name HS stretch Side bilateral Reps/Minutes 2x30s ea Comments w/ ankle pumps Bridging Supine Exercise Name Bridging Comments 1st attempt saddle pain reported, then pain free Sitting Exercises Piriformis Sitting Exercise Name Seated Piriformis stretch 1. figure-4 2 knee to opp corina Side bilateral Reps/Minutes 2x30s ea Comments gentle, pain free, no breathholding Manual Therapy Treatment Consent Patient gave verbal consent for manual Yes treatment Soft Tissue Mobilization Piriformis Body Location L piriformis Mobilization Type Rolling,Sustained Pressure Intensity/Depth Superficial Body Position Sidelying Comments pillow supports between LEs. Lumbar Body Location B Lumbar paraspinals and B TFL and ITB focus Mobilization Type Strumming,Sustained Pressure Intensity/Depth Moderate Body Position Sidelying Comments pillow supports between LEs. Self-Care/Home Management Treatment Education Patient Education Home Exercise Program Other Education Discussed if pt attempts to wash 15# dog at elevated height to be mindful of engaging core (Transverse abdominis m.) and no breathholding to protect low back. PT-OP-T Assessment and Plan Start: 04/30/24 16:45 Freq: Status: Active Protocol: Document 05/26/24 13:53 NBM (Rec: 05/26/24 14:48 NBM [id number]) Physical Therapy Assessment Assessment Summary Assessment Annika is unable to tolerate session due to radicular pain emanating from buttocks down posterior thigh. Her bilateral hip pain start of session 3/ 10 increases to 5/10 after getting up from recumbent elliptical machine for warmup. Treatment focus on pain management w/ STM using breathwork focus, cues for gentle stretching in pain-free range, and pt reports improved pain end of session. Ice declined. Physical Therapy Plan Frequency and Duration Frequency of Treatment 2x/Week Plan of Care Start Date 04/30/24 Plan of Care End Date 06/30/24 Therapeutic Interventions Therapeutic Interventions Home Exercise Program,Manual Therapy,Neuromuscular Re- education,Patient/Caregiver Education,Self-Care/Home Management,Soft Tissue Mobilization,Therapeutic Activities,Therapeutic Exercises Modalities Cold Pack/Ice Massage,Electric Stimulation,Hot Packs, Ultrasound Next Visit Focus/Plan Next Note Type Treatment Note Next Visit Plan Continue to work on core strengthening and lumbar mobility, adjust HEP as needed .
--- NOTE | 2024-06-02 15:20 | PT.OTN ---
Current Diagnoses Pain in left hip (06/02/24) Stiffness of other specified joint, not elsewhere classified (06/02/24) Lumbago with sciatica, unspecified side (06/02/24) Other abnormalities of gait and mobility (06/02/24) Physical Therapy Treatment Note PT-OP-A Visit Information Start: 04/30/24 16:45 Freq: Status: Active Protocol: Document 06/02/24 14:01 NBM (Rec: 06/02/24 14:42 NBM [id number]) Out-Patient Physical Therapy Visit Information Visit Information Visit Type Treatment Note Visit Start Time 13:54 Visit Stop Time 14:41 Visit Number 4 Number of OPERATIONS PROGRAM MANAGER Visits 2 PT-OP-B Current Condition Start: 04/30/24 16:45 Freq: Status: Active Protocol: Document 04/30/24 13:45 DCW (Rec: 04/30/24 17:05 DCW [id number]) Current Condition History of Current Condition Onset Date Ten month history Current Complaints Low back pain, hip and leg pain, radicular symptoms History of Current Condition Pt is a 74 year old female presenting to skilled therapy with a complex history of low back and leg pain. Pt initially came in for an initial evaluation on 04/19/24. Upon coming back from the waiting room, pt was struggling to walk under her own power, required to hang on to therapist's arm, stopped multiple times over the ~100' to the treatment room. During subjective history, pt made off-hand mention about recent difficulty with bladder voiding. Upon further inquiry, pt noted that she often has saddle numbness. Due to red flags for cauda equina syndrome, therapist stopped evaluation and strongly recommend pt go to the ED for further assessment. Following some confusion, pt did eventually receive an MRI (see below). Pt cleared to return for skilled PT. Patient comes in now today (04/30/24) feeling much better, walking well under her own power. Still experiencing some difficulty after sitting for extended periods of time, or when first getting up in the morning. Pt reports pain initially began last summer, had some mild back pain, but then became sick with Covid, which worsened her pain. Pt then in August received a Covid vaccination, and then felt like symptoms worsened again. Pt was experiencing severe pain in low back and down the back of her legs, in addition (as described above) to apparent saddle numbness and difficulty voiding her bladder due to increased muscle tone. Pt notes today that she felt she just has to finally recover from illness, get the infection out of her. Pt is concerned that her symptoms might be a sign of long Covid. Pt would like to return to the gym without pain to help build strength back up. Prior Treatments and Tests Lumbar MRI: IMPRESSION: 1. Multilevel severe disc desiccation, height loss, and reactive endplate changes. 2. Anterolisthesis, severe facet and ligamentum flavum hypertrophy and broad-based disc bulge at L3-4 with severe resultant canal stenosis. The AP diameter of the canal is less than 4 mm. 3. Left paracentral disc protrusion at L3-4 with narrowing of the left lateral recess. 4. Fat signal mass within the right paracentral region at L5-S1. This does not have the characteristic appearance of an extruded disc fragment. Contrast enhanced MRI of the lumbar spine recommended to further characterize this finding. 5. Fluid fluid level within a cystic lesion in the left upper renal pole. Further characterization with ultrasound or renal mass protocol CT recommended. 6. Questionable fatty mass within the right pararenal space versus variation in T2 signal of the retroperitoneal fat. CT or contrast MRI of this region could be used to further characterize this finding. per Sary Wright on 04/21/2024 PT-OP-C Subjective Start: 04/30/24 16:45 Freq: Status: Active Protocol: Document 06/02/24 14:01 [facility] (Rec: 06/02/24 14:42 [facility] [id number]) OP-PT Subjective Patient Comments Patient Comments Annika reports she's been doing so fine since last visit that she was planning to postpone her PT, but then this morning she was following her cooker casing looking at the hot water heater bent over and when she straightened up both of her hips were hurting again . She had been doing some of her ex's at home but not every day, and maybe because she was doing so well she wasn't doing her ex's. She did a bunch of her stretching ex's and took an aspirin and that helped. No pain at this moment . She thinks she had an infection that's now been getting better and brain fog has been lifting and her energy is better. Further imaging recommended from previous imaging is scheduled for next week. PT-OP-F Manual Assessment Start: 04/30/24 16:45 Freq: Status: Active Protocol: Document 04/30/24 13:45 DCW (Rec: 04/30/24 17:05 DCW [id number]) Manual Assessments Soft Tissue Assessment Soft Tissue Mobility Assessment Mild-moderate tenderness with palpation along low back and glutes PT-OP-K Range of Motion Start: 04/30/24 16:45 Freq: Status: Active Protocol: Document 04/30/24 13:45 DCW (Rec: 04/30/24 17:05 DCW [id number]) Lumbar Spine Range of Motion Lumbar Spine Active Degrees Testing Position Standing Flexion 35 Extension 15 PT-OP-L Special Tests Start: 04/30/24 16:45 Freq: Status: Active Protocol: Document 04/30/24 13:45 DCW (Rec: 04/30/24 17:05 DCW [id number]) Special Tests Lumbar Spine Special Tests Compression Test Results feels good PT-OP-M Strength Start: 04/30/24 16:45 Freq: Status: Active Protocol: Document 04/30/24 13:45 DCW (Rec: 04/30/24 17:05 DCW [id number]) Hip Strength Hip Manual Muscle Testing Right Flexion (L2) 4- Good- Extension (S1) 4- Good- Abduction 4- Good- Adduction 4- Good- Left Flexion (L2) 4- Good- Extension (S1) 4- Good- Abduction 4 Good Adduction 4 Good Knee Strength Knee Manual Muscle Testing Right Flexion (S2) 4+ Good+ Extension (L3) 4 Good Left Flexion (S2) 4+ Good+ Extension (L3) 4 Good PT-OP-Q Treatments Start: 04/30/24 16:45 Freq: Status: Active Protocol: Document 06/02/24 14:01 NBM (Rec: 06/02/24 14:42 NBM [id number]) Therapeutic Exercises Supine Exercises Bridging Supine Exercise Name Bridging Comments 1st attempt saddle pain reported, then pain free SLR Supine Exercise Name PPT /c SLR Marching Supine Exercise Name PPT /c Marching Sidelying Exercises Clamshell Sidelying Exercise Name Clamshell Side left Manual Therapy Treatment Consent Patient gave verbal consent for manual Yes treatment Soft Tissue Mobilization Lumbar Body Location Lumbar paraspinals and R TFL, R ITB focus. Mobilization Type Strumming,Sustained Pressure Intensity/Depth Moderate Body Position Sidelying Comments pillow supports between LEs. Self-Care/Home Management Treatment Education Patient Education Body Mechanics,Home Exercise Program,Pain Management Other Education Practice of log roll method w/ core engagement and PPT which resolves pain w/ transition EOB to supine. Edu to pt re: pillows between knees/ankles for LE alignment with sleeping. PT-OP-T Assessment and Plan Start: 04/30/24 16:45 Freq: Status: Active Protocol: Document 06/02/24 14:01 [facility] (Rec: 06/02/24 14:42 [facility] [id number]) Physical Therapy Assessment Goals Three Impairment Pt fair-poor with abdominal bracing Can Maker Goal (LTG) Pt to improve ability to brace abdominal muscles and increase core strength in order to improve support for low back LTG Duration 06/30/24 Two Impairment Bilateral hip weakness Can Maker Goal (LTG) Pt to demonstrate improving hip strength by testing with MMT at least 4/5 in all planes bilaterally in order to improve ability to stand/walk when first getting up in the morning LTG Duration 06/30/24 One Impairment Pt does not have an approrpiate home exercise program Short Term Goal (STG) Pt to be independent and compliant with an appropriate HEP STG Duration 05/30/24 Assessment Summary Assessment Annika has luisito hip pain w/ log roll method which improves w/ cueing for posterior pelvic tilt and Transverse abdominis activation. Initial luisito hip discomfort noted w/ bridging which resolves w/ repetition. STM to R ITB, edu for pillows between knees/ ankles for LE alignment with sleeping. Physical Therapy Plan Frequency and Duration Frequency of Treatment 2x/Week Plan of Care Start Date 04/30/24 Plan of Care End Date 06/30/24 Therapeutic Interventions Therapeutic Interventions Home Exercise Program,Manual Therapy,Neuromuscular Re- education,Patient/Caregiver Education,Self-Care/Home Management,Soft Tissue Mobilization,Therapeutic Activities,Therapeutic Exercises Modalities Cold Pack/Ice Massage,Electric Stimulation,Hot Packs, Ultrasound Next Visit Focus/Plan Next Note Type Treatment Note Next Visit Plan Continue to work on core strengthening and lumbar mobility, adjust HEP as needed .
--- NOTE | 2024-06-08 12:48 | PT.OTN ---
Current Diagnoses Pain in left hip (06/08/24) Stiffness of other specified joint, not elsewhere classified (06/08/24) Lumbago with sciatica, unspecified side (06/08/24) Other abnormalities of gait and mobility (06/08/24) Physical Therapy Treatment Note PT-OP-A Visit Information Start: 04/30/24 16:45 Freq: Status: Active Protocol: Document 06/08/24 12:00 DCW (Rec: 06/08/24 12:48 DCW [id number]) Out-Patient Physical Therapy Visit Information Visit Information Visit Type Treatment Note Visit Start Time 12:00 Visit Stop Time 12:45 Visit Number 5 Number of ONCOLOGY PHYSICIAN Visits 0 Evaluation Information Evaluation Date 04/30/24 PT-OP-B Current Condition Start: 04/30/24 16:45 Freq: Status: Active Protocol: Document 04/30/24 13:45 DCW (Rec: 04/30/24 17:05 DCW [id number]) Current Condition History of Current Condition Onset Date Ten month history Current Complaints Low back pain, hip and leg pain, radicular symptoms History of Current Condition Pt is a 74 year old female presenting to skilled therapy with a complex history of low back and leg pain. Pt initially came in for an initial evaluation on 04/19/24. Upon coming back from the waiting room, pt was struggling to walk under her own power, required to hang on to therapist's arm, stopped multiple times over the ~100' to the treatment room. During subjective history, pt made off-hand mention about recent difficulty with bladder voiding. Upon further inquiry, pt noted that she often has saddle numbness. Due to red flags for cauda equina syndrome, therapist stopped evaluation and strongly recommend pt go to the ED for further assessment. Following some confusion, pt did eventually receive an MRI (see below). Pt cleared to return for skilled PT. Patient comes in now today (04/30/24) feeling much better, walking well under her own power. Still experiencing some difficulty after sitting for extended periods of time, or when first getting up in the morning. Pt reports pain initially began last summer, had some mild back pain, but then became sick with Covid, which worsened her pain. Pt then in August received a Covid vaccination, and then felt like symptoms worsened again. Pt was experiencing severe pain in low back and down the back of her legs, in addition (as described above) to apparent saddle numbness and difficulty voiding her bladder due to increased muscle tone. Pt notes today that she felt she just has to finally recover from illness, get the infection out of her. Pt is concerned that her symptoms might be a sign of long Covid. Pt would like to return to the gym without pain to help build strength back up. Prior Treatments and Tests Lumbar MRI: IMPRESSION: 1. Multilevel severe disc desiccation, height loss, and reactive endplate changes. 2. Anterolisthesis, severe facet and ligamentum flavum hypertrophy and broad-based disc bulge at L3-4 with severe resultant canal stenosis. The AP diameter of the canal is less than 4 mm. 3. Left paracentral disc protrusion at L3-4 with narrowing of the left lateral recess. 4. Fat signal mass within the right paracentral region at L5-S1. This does not have the characteristic appearance of an extruded disc fragment. Contrast enhanced MRI of the lumbar spine recommended to further characterize this finding. 5. Fluid fluid level within a cystic lesion in the left upper renal pole. Further characterization with ultrasound or renal mass protocol CT recommended. 6. Questionable fatty mass within the right pararenal space versus variation in T2 signal of the retroperitoneal fat. CT or contrast MRI of this region could be used to further characterize this finding. per Sary Wright on 04/21/2024 PT-OP-C Subjective Start: 04/30/24 16:45 Freq: Status: Active Protocol: Document 06/08/24 12:00 DCW (Rec: 06/08/24 12:48 DCW [id number]) OP-PT Subjective Patient Comments Patient Comments Pt has scan scheduled for tomorrow, overall feeling like she is doing better. PT-OP-F Manual Assessment Start: 04/30/24 16:45 Freq: Status: Active Protocol: Document 04/30/24 13:45 DCW (Rec: 04/30/24 17:05 DCW [id number]) Manual Assessments Soft Tissue Assessment Soft Tissue Mobility Assessment Mild-moderate tenderness with palpation along low back and glutes PT-OP-K Range of Motion Start: 04/30/24 16:45 Freq: Status: Active Protocol: Document 04/30/24 13:45 DCW (Rec: 04/30/24 17:05 DCW [id number]) Lumbar Spine Range of Motion Lumbar Spine Active Degrees Testing Position Standing Flexion 35 Extension 15 PT-OP-L Special Tests Start: 04/30/24 16:45 Freq: Status: Active Protocol: Document 04/30/24 13:45 DCW (Rec: 04/30/24 17:05 UTW [id number]) Special Tests Lumbar Spine Special Tests Compression Test Results feels good PT-OP-M Strength Start: 04/30/24 16:45 Freq: Status: Active Protocol: Document 04/30/24 13:45 DCW (Rec: 04/30/24 17:05 [facility] [id number]) Hip Strength Hip Manual Muscle Testing Right Flexion (L2) 4- Good- Extension (S1) 4- Good- Abduction 4- Good- Adduction 4- Good- Left Flexion (L2) 4- Good- Extension (S1) 4- Good- Abduction 4 Good Adduction 4 Good Knee Strength Knee Manual Muscle Testing Right Flexion (S2) 4+ Good+ Extension (L3) 4 Good Left Flexion (S2) 4+ Good+ Extension (L3) 4 Good PT-OP-Q Treatments Start: 04/30/24 16:45 Freq: Status: Active Protocol: Document 06/08/24 12:00 DCW (Rec: 06/08/24 12:48 [facility] [id number]) Gym Equipment Shuttle Recovery Bilateral Heel Raises Resistance 25# Unilateral Squats Resistance 25# Shuttle Recovery Platform Stable Bilateral Squats Resistance 62# Shuttle Recovery Platform Stable Therapeutic Ball Pelvic Tilts Exercise Details Pelvic Tilts/Circles Ball Size/Color Green - 65 cm Body Position Seated Therapeutic Exercises Supine Exercises Bridging Supine Exercise Name Bridging Comments VCs for glute contraction Standing Exercises Hip Extension Standing Exercise Name Hip Extension Side bilateral Resistance Green Other Exercises Resisted ambulation Other Exercise Name Resisted side-stepping Resistance Green PT-OP-T Assessment and Plan Start: 04/30/24 16:45 Freq: Status: Active Protocol: Document 06/08/24 12:00 DCW (Rec: 06/08/24 12:48 DCW [id number]) Physical Therapy Assessment Impairments Impairments Activity Tolerance,Functional Activities,Functional Mobility ,Pain,ROM,Soft Tissue Mobility ,Strength,Tone Goals Three Impairment Pt fair-poor with abdominal bracing Longterm Goal (LTG) Pt to improve ability to brace abdominal muscles and increase core strength in order to improve support for low back LTG Duration 06/30/24 Two Impairment Bilateral hip weakness Personnel Placement Specialist Goal (LTG) Pt to demonstrate improving hip strength by testing with MMT at least 4/5 in all planes bilaterally in order to improve ability to stand/walk when first getting up in the morning LTG Duration 06/30/24 One Impairment Pt does not have an approrpiate home exercise program Short Term Goal (STG) Pt to be independent and compliant with an appropriate HEP STG Duration 05/30/24 Assessment Summary Assessment Pt tolerating treatment fairly well today, did have to modify performance of bridging , but pt able to perform with minimal pain. Having new imaging performed tomorrow, would like to continue with PT due to ongoing difficulty of return to independent gym exercise Physical Therapy Plan Frequency and Duration Frequency of Treatment 2x/Week Plan of Care Start Date 04/30/24 Plan of Care End Date 06/30/24 Therapeutic Interventions Therapeutic Interventions Home Exercise Program,Manual Therapy,Neuromuscular Re- education,Patient/Caregiver Education,Self-Care/Home Management,Soft Tissue Mobilization,Therapeutic Activities,Therapeutic Exercises Modalities Cold Pack/Ice Massage,Electric Stimulation,Hot Packs, Ultrasound Next Visit Focus/Plan Next Note Type Treatment Note Next Visit Plan Continue to work on core strengthening and lumbar mobility, adjust HEP as needed .
--- NOTE | 2024-06-18 12:20 | PT.OTN ---
Current Diagnoses Pain in left hip (06/18/24) Stiffness of other specified joint, not elsewhere classified (06/18/24) Lumbago with sciatica, unspecified side (06/18/24) Other abnormalities of gait and mobility (06/18/24) Physical Therapy Treatment Note PT-OP-A Visit Information Start: 04/30/24 16:45 Freq: Status: Active Protocol: Document 06/18/24 11:25 NBM (Rec: 06/18/24 12:20 NBM [id number]) Out-Patient Physical Therapy Visit Information Visit Information Visit Type Treatment Note Visit Note Pt in restroom start of session. Visit Start Time 11:30 Visit Stop Time 12:10 Visit Number 5 Number of ROLL UP HELPER Visits 0 PT-OP-B Current Condition Start: 04/30/24 16:45 Freq: Status: Active Protocol: Document 04/30/24 13:45 DCW (Rec: 04/30/24 17:05 DCW [id number]) Current Condition History of Current Condition Onset Date Ten month history Current Complaints Low back pain, hip and leg pain, radicular symptoms History of Current Condition Pt is a 74 year old female presenting to skilled therapy with a complex history of low back and leg pain. Pt initially came in for an initial evaluation on 04/19/24. Upon coming back from the waiting room, pt was struggling to walk under her own power, required to hang on to therapist's arm, stopped multiple times over the ~100' to the treatment room. During subjective history, pt made off-hand mention about recent difficulty with bladder voiding. Upon further inquiry, pt noted that she often has saddle numbness. Due to red flags for cauda equina syndrome, therapist stopped evaluation and strongly recommend pt go to the ED for further assessment. Following some confusion, pt did eventually receive an MRI (see below). Pt cleared to return for skilled PT. Patient comes in now today (04/30/24) feeling much better, walking well under her own power. Still experiencing some difficulty after sitting for extended periods of time, or when first getting up in the morning. Pt reports pain initially began last summer, had some mild back pain, but then became sick with Covid, which worsened her pain. Pt then in August received a Covid vaccination, and then felt like symptoms worsened again. Pt was experiencing severe pain in low back and down the back of her legs, in addition (as described above) to apparent saddle numbness and difficulty voiding her bladder due to increased muscle tone. Pt notes today that she felt she just has to finally recover from illness, get the infection out of her. Pt is concerned that her symptoms might be a sign of long Covid. Pt would like to return to the gym without pain to help build strength back up. Prior Treatments and Tests Lumbar MRI: IMPRESSION: 1. Multilevel severe disc desiccation, height loss, and reactive endplate changes. 2. Anterolisthesis, severe facet and ligamentum flavum hypertrophy and broad-based disc bulge at L3-4 with severe resultant canal stenosis. The AP diameter of the canal is less than 4 mm. 3. Left paracentral disc protrusion at L3-4 with narrowing of the left lateral recess. 4. Fat signal mass within the right paracentral region at L5-S1. This does not have the characteristic appearance of an extruded disc fragment. Contrast enhanced MRI of the lumbar spine recommended to further characterize this finding. 5. Fluid fluid level within a cystic lesion in the left upper renal pole. Further characterization with ultrasound or renal mass protocol CT recommended. 6. Questionable fatty mass within the right pararenal space versus variation in T2 signal of the retroperitoneal fat. CT or contrast MRI of this region could be used to further characterize this finding. per Lissett Sosa M.D . on 04/21/2024 PT-OP-C Subjective Start: 04/30/24 16:45 Freq: Status: Active Protocol: Document 06/18/24 11:25 NBM (Rec: 06/18/24 12:20 NBM [id number]) OP-PT Subjective Patient Comments Patient Comments Annika reports doing pretty good and had one incident of pain yesterday while she was splayed on her knees getting onto her mat and it was fast and then gone. I still find it very tiring to walk. She had imaging done which was fine except some monitoring for kidneys with further re- imaging in 6 months. Her friend pointed out she weaves when she walks instead of walking straight. Patient Reported Progress Improving PT-OP-F Manual Assessment Start: 04/30/24 16:45 Freq: Status: Active Protocol: Document 04/30/24 13:45 DCW (Rec: 04/30/24 17:05 DCW [id number]) Manual Assessments Soft Tissue Assessment Soft Tissue Mobility Assessment Mild-moderate tenderness with palpation along low back and glutes PT-OP-K Range of Motion Start: 04/30/24 16:45 Freq: Status: Active Protocol: Document 04/30/24 13:45 DCW (Rec: 04/30/24 17:05 DCW [id number]) Lumbar Spine Range of Motion Lumbar Spine Active Degrees Testing Position Standing Flexion 35 Extension 15 PT-OP-L Special Tests Start: 04/30/24 16:45 Freq: Status: Active Protocol: Document 04/30/24 13:45 DCW (Rec: 04/30/24 17:05 DCW [id number]) Special Tests Lumbar Spine Special Tests Compression Test Results feels good PT-OP-M Strength Start: 04/30/24 16:45 Freq: Status: Active Protocol: Document 04/30/24 13:45 DCW (Rec: 04/30/24 17:05 DCW [id number]) Hip Strength Hip Manual Muscle Testing Right Flexion (L2) 4- Good- Extension (S1) 4- Good- Abduction 4- Good- Adduction 4- Good- Left Flexion (L2) 4- Good- Extension (S1) 4- Good- Abduction 4 Good Adduction 4 Good Knee Strength Knee Manual Muscle Testing Right Flexion (S2) 4+ Good+ Extension (L3) 4 Good Left Flexion (S2) 4+ Good+ Extension (L3) 4 Good PT-OP-Q Treatments Start: 04/30/24 16:45 Freq: Status: Active Protocol: Document 06/18/24 11:25 NBM (Rec: 06/18/24 12:20 NBM [id number]) Gym Equipment Shuttle Recovery Bilateral Heel Raises Details PF/DF Resistance 37# Reps/Time x20 Unilateral Squats Details luisito Resistance 37# Shuttle Recovery Platform Stable Bilateral Squats Resistance 62# Shuttle Recovery Platform Stable Reps/Time initial cues for LE alignment Therapeutic Ball Pelvic Tilts Exercise Details 1. Pelvic Tilts/Circles 2. heel raises > alt march Ball Size/Color Green - 65 cm Body Position Seated Comments cues for TrA activation, LBP resolves w/ cues for PPT. R EDUCATION OFFICER prn w/ 2. Neuro Re-Education Treatment Coordination Activities ambulation Details indoor/outdoor, flat and gentle incline/decline on gravel Comments w/ bag doffed/donned over R shoulder. Focus on core activation w/ breath and upright posture, distant focal point, increased arm swing. PT-OP-T Assessment and Plan Start: 04/30/24 16:45 Freq: Status: Active Protocol: Document 06/18/24 11:25 NBM (Rec: 06/18/24 12:20 NBM [id number]) Physical Therapy Assessment Goals Three Impairment Pt fair-poor with abdominal bracing Retirement Goal (LTG) Pt to improve ability to brace abdominal muscles and increase core strength in order to improve support for low back LTG Duration 06/30/24 Two Impairment Bilateral hip weakness Retirement Goal (LTG) Pt to demonstrate improving hip strength by testing with MMT at least 4/5 in all planes bilaterally in order to improve ability to stand/walk when first getting up in the morning LTG Duration 06/30/24 One Impairment Pt does not have an approrpiate home exercise program Short Term Goal (STG) Pt to be independent and compliant with an appropriate HEP STG Duration 05/30/24 Assessment Summary Assessment Pt continues to report low back pain and fatigue in low back with walking. Treatment focus on LE strengthening and ambulation w/ abdominal bracing (Goal 3) and breathwork throughout. Pt cued for upright posture w/ distant focal point and w/ Transverse abdominis m activation, no breathholding, and increased arm swing and demonstrates improved gait pattern w/ cueing and repetition. Pt educated on role of arm swing during gait and encouraged to wear bag cross body at hip instead of large bag over R shoulder limiting arm swing as pt tends to veer towards R with bag donned over R shoulder. She tolerates resistance progression on Shuttle Recovery from 25# to 37# for Unilateral squats and Bilateral heel raises without pain or change in baseline. Physical Therapy Plan Frequency and Duration Frequency of Treatment 2x/Week Plan of Care Start Date 04/30/24 Plan of Care End Date 06/30/24 Therapeutic Interventions Therapeutic Interventions Home Exercise Program,Manual Therapy,Neuromuscular Re- education,Patient/Caregiver Education,Self-Care/Home Management,Soft Tissue Mobilization,Therapeutic Activities,Therapeutic Exercises Modalities Cold Pack/Ice Massage,Electric Stimulation,Hot Packs, Ultrasound Next Visit Focus/Plan Next Note Type Treatment Note Next Visit Plan Continue to work on core strengthening and lumbar mobility, adjust HEP as needed .
--- NOTE | 2024-06-24 16:44 | PT.OTN ---
Current Diagnoses Pain in left hip (06/24/24) Stiffness of other specified joint, not elsewhere classified (06/24/24) Lumbago with sciatica, unspecified side (06/24/24) Other abnormalities of gait and mobility (06/24/24) Physical Therapy Treatment Note PT-OP-A Visit Information Start: 04/30/24 16:45 Freq: Status: Active Protocol: Document 06/24/24 16:03 DCW (Rec: 06/24/24 16:44 DCW [id number]) Out-Patient Physical Therapy Visit Information Visit Information Visit Type Treatment Note Visit Start Time 16:03 Visit Stop Time 16:45 Visit Number 6 Number of RUNNER OUT Visits 0 Evaluation Information Evaluation Date 04/30/24 PT-OP-B Current Condition Start: 04/30/24 16:45 Freq: Status: Active Protocol: Document 04/30/24 13:45 DCW (Rec: 04/30/24 17:05 DCW [id number]) Current Condition History of Current Condition Onset Date Ten month history Current Complaints Low back pain, hip and leg pain, radicular symptoms History of Current Condition Pt is a 74 year old female presenting to skilled therapy with a complex history of low back and leg pain. Pt initially came in for an initial evaluation on 04/19/24. Upon coming back from the waiting room, pt was struggling to walk under her own power, required to hang on to therapist's arm, stopped multiple times over the ~100' to the treatment room. During subjective history, pt made off-hand mention about recent difficulty with bladder voiding. Upon further inquiry, pt noted that she often has saddle numbness. Due to red flags for cauda equina syndrome, therapist stopped evaluation and strongly recommend pt go to the ED for further assessment. Following some confusion, pt did eventually receive an MRI (see below). Pt cleared to return for skilled PT. Patient comes in now today (04/30/24) feeling much better, walking well under her own power. Still experiencing some difficulty after sitting for extended periods of time, or when first getting up in the morning. Pt reports pain initially began last summer, had some mild back pain, but then became sick with Covid, which worsened her pain. Pt then in August received a Covid vaccination, and then felt like symptoms worsened again. Pt was experiencing severe pain in low back and down the back of her legs, in addition (as described above) to apparent saddle numbness and difficulty voiding her bladder due to increased muscle tone. Pt notes today that she felt she just has to finally recover from illness, get the infection out of her. Pt is concerned that her symptoms might be a sign of long Covid. Pt would like to return to the gym without pain to help build strength back up. Prior Treatments and Tests Lumbar MRI: IMPRESSION: 1. Multilevel severe disc desiccation, height loss, and reactive endplate changes. 2. Anterolisthesis, severe facet and ligamentum flavum hypertrophy and broad-based disc bulge at L3-4 with severe resultant canal stenosis. The AP diameter of the canal is less than 4 mm. 3. Left paracentral disc protrusion at L3-4 with narrowing of the left lateral recess. 4. Fat signal mass within the right paracentral region at L5-S1. This does not have the characteristic appearance of an extruded disc fragment. Contrast enhanced MRI of the lumbar spine recommended to further characterize this finding. 5. Fluid fluid level within a cystic lesion in the left upper renal pole. Further characterization with ultrasound or renal mass protocol CT recommended. 6. Questionable fatty mass within the right pararenal space versus variation in T2 signal of the retroperitoneal fat. CT or contrast MRI of this region could be used to further characterize this finding. per Sary Wright on 04/21/2024 PT-OP-C Subjective Start: 04/30/24 16:45 Freq: Status: Active Protocol: Document 06/24/24 16:03 DCW (Rec: 06/24/24 16:44 DCW [id number]) OP-PT Subjective Patient Comments Patient Comments Went to [employer] [facility] yesterday , by the time I got home, I was in a lot of pain. PT-OP-F Manual Assessment Start: 04/30/24 16:45 Freq: Status: Active Protocol: Document 04/30/24 13:45 DCW (Rec: 04/30/24 17:05 DCW [id number]) Manual Assessments Soft Tissue Assessment Soft Tissue Mobility Assessment Mild-moderate tenderness with palpation along low back and glutes PT-OP-K Range of Motion Start: 04/30/24 16:45 Freq: Status: Active Protocol: Document 04/30/24 13:45 DCW (Rec: 04/30/24 17:05 DCW [id number]) Lumbar Spine Range of Motion Lumbar Spine Active Degrees Testing Position Standing Flexion 35 Extension 15 PT-OP-L Special Tests Start: 04/30/24 16:45 Freq: Status: Active Protocol: Document 04/30/24 13:45 DCW (Rec: 04/30/24 17:05 DCW [id number]) Special Tests Lumbar Spine Special Tests Compression Test Results feels good PT-OP-M Strength Start: 04/30/24 16:45 Freq: Status: Active Protocol: Document 04/30/24 13:45 DCW (Rec: 04/30/24 17:05 DCW [id number]) Hip Strength Hip Manual Muscle Testing Right Flexion (L2) 4- Good- Extension (S1) 4- Good- Abduction 4- Good- Adduction 4- Good- Left Flexion (L2) 4- Good- Extension (S1) 4- Good- Abduction 4 Good Adduction 4 Good Knee Strength Knee Manual Muscle Testing Right Flexion (S2) 4+ Good+ Extension (L3) 4 Good Left Flexion (S2) 4+ Good+ Extension (L3) 4 Good PT-OP-Q Treatments Start: 04/30/24 16:45 Freq: Status: Active Protocol: Document 06/24/24 16:03 DCW (Rec: 06/24/24 16:44 DCW [id number]) Gym Equipment Therapeutic Ball Pelvic Tilts Exercise Details Pelvic Tilts/Circles Ball Size/Color Green - 65 cm Body Position Seated Therapeutic Exercises Supine Exercises Hamstring Supine Exercise Name HS stretch Side bilateral Standing Exercises Shoulder Extension Standing Exercise Name Shoulder Extension Side bilateral Resistance Green Pallof Press Standing Exercise Name Pallof Press Side bilateral Resistance Green Other Exercises Resisted ambulation Other Exercise Name Resisted side-stepping Resistance Green Manual Therapy Treatment Consent Patient gave verbal consent for manual Yes treatment Soft Tissue Mobilization Piriformis Body Location L Piriforims Mobilization Type Strumming,Sustained Pressure Body Position Sidelying Lumbar Body Location L Lumbar paraspinals Mobilization Type Strumming,Sustained Pressure Body Position Sidelying Manual Traction Lower Extremity Details B LE distraction PT-OP-T Assessment and Plan Start: 04/30/24 16:45 Freq: Status: Active Protocol: Document 06/24/24 16:03 DCW (Rec: 06/24/24 16:44 DCW [id number]) Physical Therapy Assessment Impairments Impairments Activity Tolerance,Functional Activities,Functional Mobility ,Pain,ROM,Soft Tissue Mobility ,Strength,Tone Goals Three Impairment Pt fair-poor with abdominal bracing Skylights Assembler Goal (LTG) Pt to improve ability to brace abdominal muscles and increase core strength in order to improve support for low back LTG Duration 06/30/24 Two Impairment Bilateral hip weakness Skylights Assembler Goal (LTG) Pt to demonstrate improving hip strength by testing with MMT at least 4/5 in all planes bilaterally in order to improve ability to stand/walk when first getting up in the morning LTG Duration 06/30/24 One Impairment Pt does not have an appropriate home exercise program Short Term Goal (STG) Pt to be independent and compliant with an appropriate HEP STG Duration 05/30/24 Assessment Summary Assessment Good response to treatment today, noted increased pain upon entering clinic today and elimination of pain when leaving. Tolerated STM well, reviewed Pallof press for HEP, pt noted having no memory of performing previously. Physical Therapy Plan Frequency and Duration Frequency of Treatment 2x/Week Plan of Care Start Date 04/30/24 Plan of Care End Date 06/30/24 Therapeutic Interventions Therapeutic Interventions Home Exercise Program,Manual Therapy,Neuromuscular Re- education,Patient/Caregiver Education,Self-Care/Home Management,Soft Tissue Mobilization,Therapeutic Activities,Therapeutic Exercises Modalities Cold Pack/Ice Massage,Electric Stimulation,Hot Packs, Ultrasound Next Visit Focus/Plan Next Note Type Progress Note Next Visit Plan Continue to work on core strengthening and lumbar mobility, adjust HEP as needed .
--- NOTE | 2024-06-30 11:22 | PT.OTN ---
Current Diagnoses Pain in left hip (06/30/24) Stiffness of other specified joint, not elsewhere classified (06/30/24) Lumbago with sciatica, unspecified side (06/30/24) Other abnormalities of gait and mobility (06/30/24) Physical Therapy Treatment Note PT-OP-A Visit Information Start: 04/30/24 16:45 Freq: Status: Active Protocol: Document 06/30/24 10:32 NBM (Rec: 06/30/24 11:22 NBM [id number]) Out-Patient Physical Therapy Visit Information Visit Information Visit Type Treatment Note Visit Start Time 10:35 Visit Stop Time 11:18 Visit Number 7 Number of FREELANCE WRITER Visits 1 Evaluation Information Evaluation Date 04/30/24 PT-OP-B Current Condition Start: 04/30/24 16:45 Freq: Status: Active Protocol: Document 04/30/24 13:45 DCW (Rec: 04/30/24 17:05 DCW [id number]) Current Condition History of Current Condition Onset Date Ten month history Current Complaints Low back pain, hip and leg pain, radicular symptoms History of Current Condition Pt is a 74 year old female presenting to skilled therapy with a complex history of low back and leg pain. Pt initially came in for an initial evaluation on 04/19/24. Upon coming back from the waiting room, pt was struggling to walk under her own power, required to hang on to therapist's arm, stopped multiple times over the ~100' to the treatment room. During subjective history, pt made off-hand mention about recent difficulty with bladder voiding. Upon further inquiry, pt noted that she often has saddle numbness. Due to red flags for cauda equina syndrome, therapist stopped evaluation and strongly recommend pt go to the ED for further assessment. Following some confusion, pt did eventually receive an MRI (see below). Pt cleared to return for skilled PT. Patient comes in now today (04/30/24) feeling much better, walking well under her own power. Still experiencing some difficulty after sitting for extended periods of time, or when first getting up in the morning. Pt reports pain initially began last summer, had some mild back pain, but then became sick with Covid, which worsened her pain. Pt then in August received a Covid vaccination, and then felt like symptoms worsened again. Pt was experiencing severe pain in low back and down the back of her legs, in addition (as described above) to apparent saddle numbness and difficulty voiding her bladder due to increased muscle tone. Pt notes today that she felt she just has to finally recover from illness, get the infection out of her. Pt is concerned that her symptoms might be a sign of long Covid. Pt would like to return to the gym without pain to help build strength back up. Prior Treatments and Tests Lumbar MRI: IMPRESSION: 1. Multilevel severe disc desiccation, height loss, and reactive endplate changes. 2. Anterolisthesis, severe facet and ligamentum flavum hypertrophy and broad-based disc bulge at L3-4 with severe resultant canal stenosis. The AP diameter of the canal is less than 4 mm. 3. Left paracentral disc protrusion at L3-4 with narrowing of the left lateral recess. 4. Fat signal mass within the right paracentral region at L5-S1. This does not have the characteristic appearance of an extruded disc fragment. Contrast enhanced MRI of the lumbar spine recommended to further characterize this finding. 5. Fluid fluid level within a cystic lesion in the left upper renal pole. Further characterization with ultrasound or renal mass protocol CT recommended. 6. Questionable fatty mass within the right pararenal space versus variation in T2 signal of the retroperitoneal fat. CT or contrast MRI of this region could be used to further characterize this finding. per Lissett Sosa M.D . on 04/21/2024 PT-OP-C Subjective Start: 04/30/24 16:45 Freq: Status: Active Protocol: Document 06/30/24 10:32 NBM (Rec: 06/30/24 11:22 [facility] [id number]) OP-PT Subjective Patient Comments Patient Comments Annika reports doing well and no back pain today. She used the physio ball as her coffee was brewing so got the day off started right. She hasn't had time to switch from big shoulder bag to cross body bag yet. Her back still gets tired with walking. PT-OP-F Manual Assessment Start: 04/30/24 16:45 Freq: Status: Active Protocol: Document 04/30/24 13:45 DCW (Rec: 04/30/24 17:05 DCW [id number]) Manual Assessments Soft Tissue Assessment Soft Tissue Mobility Assessment Mild-moderate tenderness with palpation along low back and glutes PT-OP-K Range of Motion Start: 04/30/24 16:45 Freq: Status: Active Protocol: Document 04/30/24 13:45 DCW (Rec: 04/30/24 17:05 DCW [id number]) Lumbar Spine Range of Motion Lumbar Spine Active Degrees Testing Position Standing Flexion 35 Extension 15 PT-OP-L Special Tests Start: 04/30/24 16:45 Freq: Status: Active Protocol: Document 04/30/24 13:45 DCW (Rec: 04/30/24 17:05 DCW [id number]) Special Tests Lumbar Spine Special Tests Compression Test Results feels good PT-OP-M Strength Start: 04/30/24 16:45 Freq: Status: Active Protocol: Document 04/30/24 13:45 DCW (Rec: 04/30/24 17:05 DCW [id number]) Hip Strength Hip Manual Muscle Testing Right Flexion (L2) 4- Good- Extension (S1) 4- Good- Abduction 4- Good- Adduction 4- Good- Left Flexion (L2) 4- Good- Extension (S1) 4- Good- Abduction 4 Good Adduction 4 Good Knee Strength Knee Manual Muscle Testing Right Flexion (S2) 4+ Good+ Extension (L3) 4 Good Left Flexion (S2) 4+ Good+ Extension (L3) 4 Good PT-OP-Q Treatments Start: 04/30/24 16:45 Freq: Status: Active Protocol: Document 06/30/24 10:32 NBM (Rec: 06/30/24 11:22 NBM [id number]) Gym Equipment Shuttle Recovery Bilateral Squats Resistance 62# Shuttle Recovery Platform Stable Reps/Time initial cues for LE alignment, breath. tactile cues for increased range. Therapeutic Ball Pelvic Tilts Exercise Details Pelvic Tilts/Circles Ball Size/Color Green - 65 cm Body Position Seated Comments pt demos personal HEP seated alternating hip hike. Therapeutic Exercises Supine Exercises Hamstring Supine Exercise Name HS stretch Side bilateral Equipment Used on Shuttle Recovery Reps/Minutes 2x30s ea Comments w/ ankle pumps; feels good Standing Exercises Shoulder Extension Standing Exercise Name Shoulder Extension Side bilateral Resistance Green Reps/Minutes x10 Hip Extension Standing Exercise Name Hip Extension Side bilateral Resistance Green Pallof Press Standing Exercise Name Pallof Press Side bilateral Resistance Green Reps/Minutes x10 ea Comments cues for form Other Exercises Resisted ambulation Other Exercise Name Resisted side-stepping Resistance Green Reps/Minutes 2x10 PT-OP-T Assessment and Plan Start: 04/30/24 16:45 Freq: Status: Active Protocol: Document 06/30/24 10:32 BEE (Rec: 06/30/24 11:22 BEE [id number]) Physical Therapy Assessment Goals Three Impairment Pt fair-poor with abdominal bracing Senior Living Goal (LTG) Pt to improve ability to brace abdominal muscles and increase core strength in order to improve support for low back LTG Duration 06/30/24 Two Impairment Bilateral hip weakness Consultants Intern Goal (LTG) Pt to demonstrate improving hip strength by testing with MMT at least 4/5 in all planes bilaterally in order to improve ability to stand/walk when first getting up in the morning LTG Duration 06/30/24 One Impairment Pt does not have an approrpiate home exercise program Short Term Goal (STG) Pt to be independent and compliant with an appropriate HEP STG Duration 05/30/24 Assessment Summary Assessment Annika presents with no pain today. Treatment focus on HEP review of lower extremity and core strengthening. Pt requies cues for form but demonstrates improved awareness of not breathholding , neutral foot positioning, TrA activation and upright posture. Edu w/ visual aids for multifidus m. anatomy and purpose of Paloff press ex, and edu for how to place theraband in doorway. Physical Therapy Plan Frequency and Duration Frequency of Treatment 2x/Week Plan of Care Start Date 04/30/24 Plan of Care End Date 06/30/24 Therapeutic Interventions Therapeutic Interventions Home Exercise Program,Manual Therapy,Neuromuscular Re- education,Patient/Caregiver Education,Self-Care/Home Management,Soft Tissue Mobilization,Therapeutic Activities,Therapeutic Exercises Modalities Cold Pack/Ice Massage,Electric Stimulation,Hot Packs, Ultrasound Next Visit Focus/Plan Next Note Type Progress Note Next Visit Plan Consider supine HEP for waking w/ LBP or hip pain in morning . POC: Continue to work on core strengthening and lumbar mobility, adjust HEP as needed .
--- NOTE | 2024-07-06 12:03 | PT.OTN ---
Current Diagnoses Pain in left hip (07/06/24) Stiffness of other specified joint, not elsewhere classified (07/06/24) Lumbago with sciatica, unspecified side (07/06/24) Other abnormalities of gait and mobility (07/06/24) Physical Therapy Treatment Note PT-OP-A Visit Information Start: 04/30/24 16:45 Freq: Status: Active Protocol: Document 07/06/24 11:16 DCW (Rec: 07/06/24 12:03 DCW [id number]) Out-Patient Physical Therapy Visit Information Visit Information Visit Type Progress Note Visit Start Time 11:16 Visit Stop Time 12:00 Visit Number 8 Number of SOLAR SYSTEM DESIGNER Visits 0 Evaluation Information Evaluation Date 04/30/24 PT-OP-B Current Condition Start: 04/30/24 16:45 Freq: Status: Active Protocol: Document 04/30/24 13:45 DCW (Rec: 04/30/24 17:05 DCW [id number]) Current Condition History of Current Condition Onset Date Ten month history Current Complaints Low back pain, hip and leg pain, radicular symptoms History of Current Condition Pt is a 74 year old female presenting to skilled therapy with a complex history of low back and leg pain. Pt initially came in for an initial evaluation on 04/19/24. Upon coming back from the waiting room, pt was struggling to walk under her own power, required to hang on to therapist's arm, stopped multiple times over the ~100' to the treatment room. During subjective history, pt made off-hand mention about recent difficulty with bladder voiding. Upon further inquiry, pt noted that she often has saddle numbness. Due to red flags for cauda equina syndrome, therapist stopped evaluation and strongly recommend pt go to the ED for further assessment. Following some confusion, pt did eventually receive an MRI (see below). Pt cleared to return for skilled PT. Patient comes in now today (04/30/24) feeling much better, walking well under her own power. Still experiencing some difficulty after sitting for extended periods of time, or when first getting up in the morning. Pt reports pain initially began last summer, had some mild back pain, but then became sick with Covid, which worsened her pain. Pt then in August received a Covid vaccination, and then felt like symptoms worsened again. Pt was experiencing severe pain in low back and down the back of her legs, in addition (as described above) to apparent saddle numbness and difficulty voiding her bladder due to increased muscle tone. Pt notes today that she felt she just has to finally recover from illness, get the infection out of her. Pt is concerned that her symptoms might be a sign of long Covid. Pt would like to return to the gym without pain to help build strength back up. Prior Treatments and Tests Lumbar MRI: IMPRESSION: 1. Multilevel severe disc desiccation, height loss, and reactive endplate changes. 2. Anterolisthesis, severe facet and ligamentum flavum hypertrophy and broad-based disc bulge at L3-4 with severe resultant canal stenosis. The AP diameter of the canal is less than 4 mm. 3. Left paracentral disc protrusion at L3-4 with narrowing of the left lateral recess. 4. Fat signal mass within the right paracentral region at L5-S1. This does not have the characteristic appearance of an extruded disc fragment. Contrast enhanced MRI of the lumbar spine recommended to further characterize this finding. 5. Fluid fluid level within a cystic lesion in the left upper renal pole. Further characterization with ultrasound or renal mass protocol CT recommended. 6. Questionable fatty mass within the right pararenal space versus variation in T2 signal of the retroperitoneal fat. CT or contrast MRI of this region could be used to further characterize this finding. per Sary Wright on 04/21/2024 PT-OP-C Subjective Start: 04/30/24 16:45 Freq: Status: Active Protocol: Document 07/06/24 11:16 DCW (Rec: 07/06/24 12:03 DCW [id number]) OP-PT Subjective Patient Comments Patient Comments Pt reports she has not had to take any OTC pain pills for a week. Does note continued pain when first getting up in the morning, and has some increased difficulty walking. PT-OP-F Manual Assessment Start: 04/30/24 16:45 Freq: Status: Active Protocol: Document 07/06/24 11:16 DCW (Rec: 07/06/24 11:30 DCW [id number]) Manual Assessments Soft Tissue Assessment Soft Tissue Mobility Assessment Mild-moderate tenderness with palpation along low back and glutes PT-OP-K Range of Motion Start: 04/30/24 16:45 Freq: Status: Active Protocol: Document 07/06/24 11:16 DCW (Rec: 07/06/24 11:30 DCW [id number]) Lumbar Spine Range of Motion Lumbar Spine Active Degrees Testing Position Standing Flexion 65 Extension 32 PT-OP-L Special Tests Start: 04/30/24 16:45 Freq: Status: Active Protocol: Document 07/06/24 11:16 DCW (Rec: 07/06/24 11:30 DCW [id number]) Special Tests Lumbar Spine Special Tests Compression Test Results Negative PT-OP-M Strength Start: 04/30/24 16:45 Freq: Status: Active Protocol: Document 07/06/24 11:16 DCW (Rec: 07/06/24 11:30 DCW [id number]) Hip Strength Hip Manual Muscle Testing Right Flexion (L2) 4+ Good+ Extension (S1) 4 Good Abduction 4+ Good+ Adduction 4+ Good+ Left Flexion (L2) 4+ Good+ Extension (S1) 4 Good Abduction 4+ Good+ Adduction 4+ Good+ Knee Strength Knee Manual Muscle Testing Right Flexion (S2) 5 Normal Extension (L3) 5 Normal Left Flexion (S2) 5 Normal Extension (L3) 4+ Good+ PT-OP-Q Treatments Start: 04/30/24 16:45 Freq: Status: Active Protocol: Document 07/06/24 11:16 DCW (Rec: 07/06/24 12:03 DCW [id number]) Therapeutic Exercises Sidelying Exercises Open Book Sidelying Exercise Name Open Book Side bilateral Sitting Exercises Trunk Flexion Sitting Exercise Name Seated trunk flexion Standing Exercises ITB Stretch Standing Exercise Name ITB stretch at Wall Side bilateral Manual Therapy Treatment Consent Patient gave verbal consent for manual Yes treatment Soft Tissue Mobilization Lumbar Body Location L Lumbar paraspinals Mobilization Type Strumming,Sustained Pressure Body Position Sidelying PT-OP-T Assessment and Plan Start: 04/30/24 16:45 Freq: Status: Active Protocol: Document 07/06/24 11:16 DCW (Rec: 07/06/24 12:03 DCW [id number]) Physical Therapy Assessment Impairments Impairments Activity Tolerance,Functional Activities,Functional Mobility ,Pain,ROM,Soft Tissue Mobility ,Strength,Tone Goals Three Impairment Pt fair-poor with abdominal bracing Usp Goal (LTG) Pt to improve ability to brace abdominal muscles and increase core strength in order to improve support for low back LTG Duration 08/20/24 Two Impairment Bilateral hip weakness Usp Goal (LTG) Pt to demonstrate improving hip strength by testing with MMT at least 4/5 in all planes bilaterally in order to improve ability to stand/walk when first getting up in the morning LTG Duration Met One Impairment Pt does not have an approrpiate home exercise program Short Term Goal (STG) Pt to be independent and compliant with an appropriate HEP STG Duration 08/20/24 Assessment Summary Assessment Pt doing much better overall, pain control significantly improved. Mobility still somewhat limited, struggles some with ambulation and when first getting up in AM. Would likely continue to benefit from skilled therapeutic intervention focusing on mobility and pain control, as well as improving HEP to increase function Physical Therapy Plan Frequency and Duration Frequency of Treatment 2x/Week Plan of Care Start Date 07/06/24 Plan of Care End Date 08/20/24 Therapeutic Interventions Therapeutic Interventions Home Exercise Program,Manual Therapy,Neuromuscular Re- education,Patient/Caregiver Education,Self-Care/Home Management,Soft Tissue Mobilization,Therapeutic Activities,Therapeutic Exercises Modalities Cold Pack/Ice Massage,Electric Stimulation,Hot Packs, Ultrasound Next Visit Focus/Plan Next Note Type Treatment Note Next Visit Plan Consider supine HEP for waking w/ LBP or hip pain in morning . POC: Continue to work on core strengthening and lumbar mobility, adjust HEP as needed .
--- NOTE | 2024-07-14 12:01 | PT.OTN ---
Current Diagnoses Pain in left hip (07/14/24) Stiffness of other specified joint, not elsewhere classified (07/14/24) Lumbago with sciatica, unspecified side (07/14/24) Other abnormalities of gait and mobility (07/14/24) Physical Therapy Treatment Note PT-OP-A Visit Information Start: 04/30/24 16:45 Freq: Status: Active Protocol: Document 07/14/24 11:17 DCW (Rec: 07/14/24 12:01 DCW [id number]) Out-Patient Physical Therapy Visit Information Visit Information Visit Type Treatment Note Visit Start Time 11:17 Visit Stop Time 12:00 Visit Number 9 Number of SILVER CLEANER Visits 0 Evaluation Information Evaluation Date 04/30/24 PT-OP-B Current Condition Start: 04/30/24 16:45 Freq: Status: Active Protocol: Document 04/30/24 13:45 DCW (Rec: 04/30/24 17:05 DCW [id number]) Current Condition History of Current Condition Onset Date Ten month history Current Complaints Low back pain, hip and leg pain, radicular symptoms History of Current Condition Pt is a 74 year old female presenting to skilled therapy with a complex history of low back and leg pain. Pt initially came in for an initial evaluation on 04/19/24. Upon coming back from the waiting room, pt was struggling to walk under her own power, required to hang on to therapist's arm, stopped multiple times over the ~100' to the treatment room. During subjective history, pt made off-hand mention about recent difficulty with bladder voiding. Upon further inquiry, pt noted that she often has saddle numbness. Due to red flags for cauda equina syndrome, therapist stopped evaluation and strongly recommend pt go to the ED for further assessment. Following some confusion, pt did eventually receive an MRI (see below). Pt cleared to return for skilled PT. Patient comes in now today (04/30/24) feeling much better, walking well under her own power. Still experiencing some difficulty after sitting for extended periods of time, or when first getting up in the morning. Pt reports pain initially began last summer, had some mild back pain, but then became sick with Covid, which worsened her pain. Pt then in August received a Covid vaccination, and then felt like symptoms worsened again. Pt was experiencing severe pain in low back and down the back of her legs, in addition (as described above) to apparent saddle numbness and difficulty voiding her bladder due to increased muscle tone. Pt notes today that she felt she just has to finally recover from illness, get the infection out of her. Pt is concerned that her symptoms might be a sign of long Covid. Pt would like to return to the gym without pain to help build strength back up. Prior Treatments and Tests Lumbar MRI: IMPRESSION: 1. Multilevel severe disc desiccation, height loss, and reactive endplate changes. 2. Anterolisthesis, severe facet and ligamentum flavum hypertrophy and broad-based disc bulge at L3-4 with severe resultant canal stenosis. The AP diameter of the canal is less than 4 mm. 3. Left paracentral disc protrusion at L3-4 with narrowing of the left lateral recess. 4. Fat signal mass within the right paracentral region at L5-S1. This does not have the characteristic appearance of an extruded disc fragment. Contrast enhanced MRI of the lumbar spine recommended to further characterize this finding. 5. Fluid fluid level within a cystic lesion in the left upper renal pole. Further characterization with ultrasound or renal mass protocol CT recommended. 6. Questionable fatty mass within the right pararenal space versus variation in T2 signal of the retroperitoneal fat. CT or contrast MRI of this region could be used to further characterize this finding. per Sary Wright on 04/21/2024 PT-OP-C Subjective Start: 04/30/24 16:45 Freq: Status: Active Protocol: Document 07/14/24 11:17 DCW (Rec: 07/14/24 12:01 DCW [id number]) OP-PT Subjective Patient Comments Patient Comments Pt reports her back is tired today, otherwise pretty happy with how things are feeling. PT-OP-F Manual Assessment Start: 04/30/24 16:45 Freq: Status: Active Protocol: Document 07/06/24 11:16 DCW (Rec: 07/06/24 11:30 DCW [id number]) Manual Assessments Soft Tissue Assessment Soft Tissue Mobility Assessment Mild-moderate tenderness with palpation along low back and glutes PT-OP-K Range of Motion Start: 04/30/24 16:45 Freq: Status: Active Protocol: Document 07/06/24 11:16 DCW (Rec: 07/06/24 11:30 DCW [id number]) Lumbar Spine Range of Motion Lumbar Spine Active Degrees Testing Position Standing Flexion 65 Extension 32 PT-OP-L Special Tests Start: 04/30/24 16:45 Freq: Status: Active Protocol: Document 07/06/24 11:16 DCW (Rec: 07/06/24 11:30 CTW [id number]) Special Tests Lumbar Spine Special Tests Compression Test Results Negative PT-OP-M Strength Start: 04/30/24 16:45 Freq: Status: Active Protocol: Document 07/06/24 11:16 DCW (Rec: 07/06/24 11:30 CTW [id number]) Hip Strength Hip Manual Muscle Testing Right Flexion (L2) 4+ Good+ Extension (S1) 4 Good Abduction 4+ Good+ Adduction 4+ Good+ Left Flexion (L2) 4+ Good+ Extension (S1) 4 Good Abduction 4+ Good+ Adduction 4+ Good+ Knee Strength Knee Manual Muscle Testing Right Flexion (S2) 5 Normal Extension (L3) 5 Normal Left Flexion (S2) 5 Normal Extension (L3) 4+ Good+ PT-OP-Q Treatments Start: 04/30/24 16:45 Freq: Status: Active Protocol: Document 07/14/24 11:17 DCW (Rec: 07/14/24 12:01 CTW [id number]) Gym Equipment Therapeutic Ball Pelvic Tilts Exercise Details Pelvic Tilts/Circles Ball Size/Color Green - 65 cm Body Position Seated Therapeutic Exercises Standing Exercises Hip Extension Standing Exercise Name Hip Extension Side bilateral Resistance Green Other Exercises Hurdles Other Exercise Name Fwd, Side-stepping over objects Resistance 5# AW Toe-taps Other Exercise Name Toe-taps Side bilateral Resistance 5# AW Equipment Used 8 step, AirEx Resisted ambulation Other Exercise Name Resisted side-stepping Resistance Green Reps/Minutes 2x10 Manual Therapy Treatment Consent Patient gave verbal consent for manual Yes treatment Soft Tissue Mobilization Piriformis Body Location L Piriforims Mobilization Type Strumming,Sustained Pressure Body Position Sidelying Lumbar Body Location L Lumbar paraspinals Mobilization Type Strumming,Sustained Pressure Body Position Sidelying PT-OP-T Assessment and Plan Start: 04/30/24 16:45 Freq: Status: Active Protocol: Document 07/14/24 11:17 DCW (Rec: 07/14/24 12:01 [facility] [id number]) Physical Therapy Assessment Impairments Impairments Activity Tolerance,Functional Activities,Functional Mobility ,Pain,ROM,Soft Tissue Mobility ,Strength,Tone Goals Three Impairment Pt fair-poor with abdominal bracing Group Home Goal (LTG) Pt to improve ability to brace abdominal muscles and increase core strength in order to improve support for low back LTG Duration 08/20/24 Two Impairment Bilateral hip weakness Group Home Goal (LTG) Pt to demonstrate improving hip strength by testing with MMT at least 4/5 in all planes bilaterally in order to improve ability to stand/walk when first getting up in the morning LTG Duration Met One Impairment Pt does not have an approrpiate home exercise program Short Term Goal (STG) Pt to be independent and compliant with an appropriate HEP STG Duration 08/20/24 Assessment Summary Assessment Pt showing good improvement, spent time today focusing on pt complaints of path deviation and scuffing feet during gait. Continue to address low back pain/ stiffness, gait instability, and foot clearance. Physical Therapy Plan Frequency and Duration Frequency of Treatment 2x/Week Plan of Care Start Date 07/06/24 Plan of Care End Date 08/20/24 Therapeutic Interventions Therapeutic Interventions Home Exercise Program,Manual Therapy,Neuromuscular Re- education,Patient/Caregiver Education,Self-Care/Home Management,Soft Tissue Mobilization,Therapeutic Activities,Therapeutic Exercises Modalities Cold Pack/Ice Massage,Electric Stimulation,Hot Packs, Ultrasound Next Visit Focus/Plan Next Note Type Treatment Note Next Visit Plan Consider supine HEP for waking w/ LBP or hip pain in morning . POC: Continue to work on core strengthening and lumbar mobility, adjust HEP as needed .
--- NOTE | 2024-07-23 15:46 | PT.OTN ---
Current Diagnoses Pain in left hip (07/23/24) Stiffness of other specified joint, not elsewhere classified (07/23/24) Lumbago with sciatica, unspecified side (07/23/24) Other abnormalities of gait and mobility (07/23/24) Physical Therapy Treatment Note PT-OP-A Visit Information Start: 04/30/24 16:45 Freq: Status: Active Protocol: Document 07/23/24 10:39 NBM (Rec: 07/23/24 11:27 NBM [id number]) Out-Patient Physical Therapy Visit Information Visit Information Visit Type Treatment Note Visit Start Time 10:34 Visit Stop Time 11:20 Visit Number 10 Number of [employer] PROM[employer]ER Visits 1 Evaluation Information Evaluation Date 04/30/24 PT-OP-B Current Condition Start: 04/30/24 16:45 Freq: Status: Active Protocol: Document 04/30/24 13:45 DCW (Rec: 04/30/24 17:05 DCW [id number]) Current Condition History of Current Condition Onset Date Ten month history Current Complaints Low back pain, hip and leg pain, radicular symptoms History of Current Condition Pt is a 74 year old female presenting to skilled therapy with a complex history of low back and leg pain. Pt initially came in for an initial evaluation on 04/19/24. Upon coming back from the waiting room, pt was struggling to walk under her own power, required to hang on to therapist's arm, stopped multiple times over the ~100' to the treatment room. During subjective history, pt made off-hand mention about recent difficulty with bladder voiding. Upon further inquiry, pt noted that she often has saddle numbness. Due to red flags for cauda equina syndrome, therapist stopped evaluation and strongly recommend pt go to the ED for further assessment. Following some confusion, pt did eventually receive an MRI (see below). Pt cleared to return for skilled PT. Patient comes in now today (04/30/24) feeling much better, walking well under her own power. Still experiencing some difficulty after sitting for extended periods of time, or when first getting up in the morning. Pt reports pain initially began last summer, had some mild back pain, but then became sick with Covid, which worsened her pain. Pt then in August received a Covid vaccination, and then felt like symptoms worsened again. Pt was experiencing severe pain in low back and down the back of her legs, in addition (as described above) to apparent saddle numbness and difficulty voiding her bladder due to increased muscle tone. Pt notes today that she felt she just has to finally recover from illness, get the infection out of her. Pt is concerned that her symptoms might be a sign of long Covid. Pt would like to return to the gym without pain to help build strength back up. Prior Treatments and Tests Lumbar MRI: IMPRESSION: 1. Multilevel severe disc desiccation, height loss, and reactive endplate changes. 2. Anterolisthesis, severe facet and ligamentum flavum hypertrophy and broad-based disc bulge at L3-4 with severe resultant canal stenosis. The AP diameter of the canal is less than 4 mm. 3. Left paracentral disc protrusion at L3-4 with narrowing of the left lateral recess. 4. Fat signal mass within the right paracentral region at L5-S1. This does not have the characteristic appearance of an extruded disc fragment. Contrast enhanced MRI of the lumbar spine recommended to further characterize this finding. 5. Fluid fluid level within a cystic lesion in the left upper renal pole. Further characterization with ultrasound or renal mass protocol CT recommended. 6. Questionable fatty mass within the right pararenal space versus variation in T2 signal of the retroperitoneal fat. CT or contrast MRI of this region could be used to further characterize this finding. per Lissett Sosa M.D . on 04/21/2024 PT-OP-C Subjective Start: 04/30/24 16:45 Freq: Status: Active Protocol: Document 07/23/24 10:39 NBM (Rec: 07/23/24 11:27 NBM [id number]) OP-PT Subjective Patient Comments Patient Comments Annika reports she had a bad day yesterday after falling asleep on the sofa, but did her ex's on her mat and felt better. I'm really grateful to you guys. She is transitioning from large shoulder bag to cross-body bag . Patient Reported Progress Improving PT-OP-F Manual Assessment Start: 04/30/24 16:45 Freq: Status: Active Protocol: Document 07/06/24 11:16 DCW (Rec: 07/06/24 11:30 DCW [id number]) Manual Assessments Soft Tissue Assessment Soft Tissue Mobility Assessment Mild-moderate tenderness with palpation along low back and glutes PT-OP-K Range of Motion Start: 04/30/24 16:45 Freq: Status: Active Protocol: Document 07/06/24 11:16 DCW (Rec: 07/06/24 11:30 DCW [id number]) Lumbar Spine Range of Motion Lumbar Spine Active Degrees Testing Position Standing Flexion 65 Extension 32 PT-OP-L Special Tests Start: 04/30/24 16:45 Freq: Status: Active Protocol: Document 07/06/24 11:16 DCW (Rec: 07/06/24 11:30 DCW [id number]) Special Tests Lumbar Spine Special Tests Compression Test Results Negative PT-OP-M Strength Start: 04/30/24 16:45 Freq: Status: Active Protocol: Document 07/06/24 11:16 DCW (Rec: 07/06/24 11:30 DCW [id number]) Hip Strength Hip Manual Muscle Testing Right Flexion (L2) 4+ Good+ Extension (S1) 4 Good Abduction 4+ Good+ Adduction 4+ Good+ Left Flexion (L2) 4+ Good+ Extension (S1) 4 Good Abduction 4+ Good+ Adduction 4+ Good+ Knee Strength Knee Manual Muscle Testing Right Flexion (S2) 5 Normal Extension (L3) 5 Normal Left Flexion (S2) 5 Normal Extension (L3) 4+ Good+ PT-OP-Q Treatments Start: 04/30/24 16:45 Freq: Status: Active Protocol: Document 07/23/24 10:39 NBM (Rec: 07/23/24 11:27 NBM [id number]) Gym Equipment Therapeutic Ball Core Exercise Details 1. Pelvic tilts 2. CW/CCW 3. Beth extension Body Position 3. Lvl 1>2>3 Tb Reps/Duration 1. and 2. x2min each 3. Lvl 3 x15 4. x15 reps ea Comments w/ TrA and breathwork focus - no pain. 4. Resisting R rotation easier than L. Therapeutic Exercises Standing Exercises Hip Extension Standing Exercise Name Hip Extension w/ TrA focus and breathwork Side bilateral Resistance Green Lvl 3 Tb Equipment Used handrail Reps/Minutes x10 ea Comments cues for upright posture, no bounce at end-range Other Exercises Hurdles Other Exercise Name Lat, Fwd Side bilateral Resistance 5# AW Equipment Used // bars Reps/Minutes Lat 10ftx4 ea, Fwd x4 Comments Improves w/ repetition until fatigued, cues for increased hip flex/DF Toe-taps Other Exercise Name Toe-taps Side bilateral Resistance 5# AW Equipment Used 8 step Reps/Minutes x10 ea Comments cues for tapping w/ heel to increase DF/foot clearance Resisted ambulation Other Exercise Name Resisted side-stepping Side bilateral Resistance Green Lvl 3 Tb Equipment Used handrail Reps/Minutes x10 ea PT-OP-T Assessment and Plan Start: 04/30/24 16:45 Freq: Status: Active Protocol: Document 07/23/24 10:39 NB (Rec: 07/23/24 11:27 [facility] [id number]) Physical Therapy Assessment Goals Three Impairment Pt fair-poor with abdominal bracing Longterm Goal (LTG) Pt to improve ability to brace abdominal muscles and increase core strength in order to improve support for low back LTG Duration 08/20/24 Two Impairment Bilateral hip weakness [employer] Goal (LTG) Pt to demonstrate improving hip strength by testing with MMT at least 4/5 in all planes bilaterally in order to improve ability to stand/walk when first getting up in the morning LTG Duration Met One Impairment Pt does not have an approrpiate home exercise program Short Term Goal (STG) Pt to be independent and compliant with an appropriate HEP STG Duration 08/20/24 Assessment Summary Assessment Annika presents with no pain today and tolerates session without increase in baseline symptoms. Treatment focus on core strengthening seated on physioball and pt is challenged Resisting L rotation more than R rotation. Foot clearance on 8 step improves w/ cues for Heel tap to increase dorsiflexion. Physical Therapy Plan Frequency and Duration Frequency of Treatment 2x/Week Plan of Care Start Date 07/06/24 Plan of Care End Date 08/20/24 Therapeutic Interventions Therapeutic Interventions Home Exercise Program,Manual Therapy,Neuromuscular Re- education,Patient/Caregiver Education,Self-Care/Home Management,Soft Tissue Mobilization,Therapeutic Activities,Therapeutic Exercises Modalities Cold Pack/Ice Massage,Electric Stimulation,Hot Packs, Ultrasound Next Visit Focus/Plan Next Note Type Treatment Note Next Visit Plan Consider supine HEP for waking w/ LBP or hip pain in morning . POC: Continue to work on core strengthening and lumbar mobility, adjust HEP as needed .
--- NOTE | 2024-07-28 12:18 | PT.OTN ---
Current Diagnoses Pain in left hip (07/28/24) Stiffness of other specified joint, not elsewhere classified (07/28/24) Lumbago with sciatica, unspecified side (07/28/24) Other abnormalities of gait and mobility (07/28/24) Physical Therapy Treatment Note PT-OP-A Visit Information Start: 04/30/24 16:45 Freq: Status: Active Protocol: Document 07/28/24 11:34 NBM (Rec: 07/28/24 12:18 NBM [id number]) Out-Patient Physical Therapy Visit Information Visit Information Visit Type Treatment Note Visit Start Time 11:25 Visit Stop Time 12:10 Visit Number 11 Number of [employer]ER Visits 2 Evaluation Information Evaluation Date 04/30/24 PT-OP-B Current Condition Start: 04/30/24 16:45 Freq: Status: Active Protocol: Document 04/30/24 13:45 DCW (Rec: 04/30/24 17:05 DCW [id number]) Current Condition History of Current Condition Onset Date Ten month history Current Complaints Low back pain, hip and leg pain, radicular symptoms History of Current Condition Pt is a 74 year old female presenting to skilled therapy with a complex history of low back and leg pain. Pt initially came in for an initial evaluation on 04/19/24. Upon coming back from the waiting room, pt was struggling to walk under her own power, required to hang on to therapist's arm, stopped multiple times over the ~100' to the treatment room. During subjective history, pt made off-hand mention about recent difficulty with bladder voiding. Upon further inquiry, pt noted that she often has saddle numbness. Due to red flags for cauda equina syndrome, therapist stopped evaluation and strongly recommend pt go to the ED for further assessment. Following some confusion, pt did eventually receive an MRI (see below). Pt cleared to return for skilled PT. Patient comes in now today (04/30/24) feeling much better, walking well under her own power. Still experiencing some difficulty after sitting for extended periods of time, or when first getting up in the morning. Pt reports pain initially began last summer, had some mild back pain, but then became sick with Covid, which worsened her pain. Pt then in August received a Covid vaccination, and then felt like symptoms worsened again. Pt was experiencing severe pain in low back and down the back of her legs, in addition (as described above) to apparent saddle numbness and difficulty voiding her bladder due to increased muscle tone. Pt notes today that she felt she just has to finally recover from illness, get the infection out of her. Pt is concerned that her symptoms might be a sign of long Covid. Pt would like to return to the gym without pain to help build strength back up. Prior Treatments and Tests Lumbar MRI: IMPRESSION: 1. Multilevel severe disc desiccation, height loss, and reactive endplate changes. 2. Anterolisthesis, severe facet and ligamentum flavum hypertrophy and broad-based disc bulge at L3-4 with severe resultant canal stenosis. The AP diameter of the canal is less than 4 mm. 3. Left paracentral disc protrusion at L3-4 with narrowing of the left lateral recess. 4. Fat signal mass within the right paracentral region at L5-S1. This does not have the characteristic appearance of an extruded disc fragment. Contrast enhanced MRI of the lumbar spine recommended to further characterize this finding. 5. Fluid fluid level within a cystic lesion in the left upper renal pole. Further characterization with ultrasound or renal mass protocol CT recommended. 6. Questionable fatty mass within the right pararenal space versus variation in T2 signal of the retroperitoneal fat. CT or contrast MRI of this region could be used to further characterize this finding. per Lissett Sosa M.D . on 04/21/2024 PT-OP-C Subjective Start: 04/30/24 16:45 Freq: Status: Active Protocol: Document 07/28/24 11:34 NBM (Rec: 07/28/24 12:18 NBM [id number]) OP-PT Subjective Patient Comments Patient Comments Annika reports she was more active and getting back into her normal activities over the weekend as she swept her deck and potted plants and is now having more back pain. She did her ex's which helped bring her pain down to 4/10 and is still in pain. Straight leg lifts are painful with leg straight. PT-OP-F Manual Assessment Start: 04/30/24 16:45 Freq: Status: Active Protocol: Document 07/06/24 11:16 DCW (Rec: 07/06/24 11:30 DCW [id number]) Manual Assessments Soft Tissue Assessment Soft Tissue Mobility Assessment Mild-moderate tenderness with palpation along low back and glutes PT-OP-K Range of Motion Start: 04/30/24 16:45 Freq: Status: Active Protocol: Document 07/06/24 11:16 DCW (Rec: 07/06/24 11:30 DCW [id number]) Lumbar Spine Range of Motion Lumbar Spine Active Degrees Testing Position Standing Flexion 65 Extension 32 PT-OP-L Special Tests Start: 04/30/24 16:45 Freq: Status: Active Protocol: Document 07/06/24 11:16 DCW (Rec: 07/06/24 11:30 DCW [id number]) Special Tests Lumbar Spine Special Tests Compression Test Results Negative PT-OP-M Strength Start: 04/30/24 16:45 Freq: Status: Active Protocol: Document 07/06/24 11:16 DCW (Rec: 07/06/24 11:30 DCW [id number]) Hip Strength Hip Manual Muscle Testing Right Flexion (L2) 4+ Good+ Extension (S1) 4 Good Abduction 4+ Good+ Adduction 4+ Good+ Left Flexion (L2) 4+ Good+ Extension (S1) 4 Good Abduction 4+ Good+ Adduction 4+ Good+ Knee Strength Knee Manual Muscle Testing Right Flexion (S2) 5 Normal Extension (L3) 5 Normal Left Flexion (S2) 5 Normal Extension (L3) 4+ Good+ PT-OP-Q Treatments Start: 04/30/24 16:45 Freq: Status: Active Protocol: Document 07/28/24 11:34 NBM (Rec: 07/28/24 12:18 NBM [id number]) Gym Equipment Therapeutic Ball Core Exercise Details 1. Pelvic tilts 2. CW/CCW 3. Beth extension 4. Paloff punch Body Position 3. Lvl 3 Tb Reps/Duration 1. and 2. x2min each 3. Lvl 3 x15 4. x10 reps ea Comments seated w/ TrA and breathwork focus - no pain. 4. Resisting R rotation easier than L. Therapeutic Activity Therapeutic Activity Body mechanics Name Sweeping balcony around potted plants Reps/Minutes 8' Comments I/s pt in facing work instead of twisting, staggered stance, weightshifting to perform sweep instead of reaching. ADLs Do's/Don'ts HO given. Manual Therapy Treatment Consent Patient gave verbal consent for manual Yes treatment Soft Tissue Mobilization Piriformis Body Location L Piriforims Mobilization Type Strumming,Sustained Pressure Intensity/Depth Moderate Body Position Sidelying Lumbar Body Location L Lumbar paraspinals Mobilization Type Strumming,Sustained Pressure Intensity/Depth Moderate Body Position Sidelying Comments pillow supports between LEs. PT-OP-T Assessment and Plan Start: 04/30/24 16:45 Freq: Status: Active Protocol: Document 07/28/24 11:34 NBM (Rec: 07/28/24 12:18 NBM [id number]) Physical Therapy Assessment Goals Three Impairment Pt fair-poor with abdominal bracing Nursing Home Goal (LTG) Pt to improve ability to brace abdominal muscles and increase core strength in order to improve support for low back LTG Duration 08/20/24 Two Impairment Bilateral hip weakness [employer] Goal (LTG) Pt to demonstrate improving hip strength by testing with MMT at least 4/5 in all planes bilaterally in order to improve ability to stand/walk when first getting up in the morning LTG Duration Met One Impairment Pt does not have an approrpiate home exercise program Short Term Goal (STG) Pt to be independent and compliant with an appropriate HEP STG Duration 08/20/24 Assessment Summary Assessment Annika presents w/ 10 low back pain following increased activites of sweeping and potting plants, which improves to /10 end of session. Treatment focus on core stability and instruction in body mechanics for sweeping. Pt is educated for facing work instead of twisting, staggered stance, weightshifting to perform sweep instead of reaching. ADLs Do's/Don'ts HO given. Manual therapy end of session with lumbar paraspinals focus and palpable tension improves. Physical Therapy Plan Frequency and Duration Frequency of Treatment 2x/Week Plan of Care Start Date 07/06/24 Plan of Care End Date 08/20/24 Therapeutic Interventions Therapeutic Interventions Home Exercise Program,Manual Therapy,Neuromuscular Re- education,Patient/Caregiver Education,Self-Care/Home Management,Soft Tissue Mobilization,Therapeutic Activities,Therapeutic Exercises Modalities Cold Pack/Ice Massage,Electric Stimulation,Hot Packs, Ultrasound Next Visit Focus/Plan Next Note Type Treatment Note Next Visit Plan Last visit; assess for discharge. POC Continue to work on core strengthening and lumbar mobility, adjust HEP as needed .
--- NOTE | 2024-07-30 17:06 | PT.OTN ---
Current Diagnoses Pain in left hip (07/30/24) Stiffness of other specified joint, not elsewhere classified (07/30/24) Lumbago with sciatica, unspecified side (07/30/24) Other abnormalities of gait and mobility (07/30/24) Physical Therapy Treatment Note PT-OP-A Visit Information Start: 04/30/24 16:45 Freq: Status: Active Protocol: Document 07/30/24 15:30 NBM (Rec: 07/30/24 17:04 NBM [id number]) Out-Patient Physical Therapy Visit Information Visit Information Visit Type Treatment Note Visit Start Time 15:25 Visit Stop Time 16:03 Visit Number 12 Number of [employer] CON[employer]ANT Visits 3 Evaluation Information Evaluation Date 04/30/24 PT-OP-B Current Condition Start: 04/30/24 16:45 Freq: Status: Active Protocol: Document 04/30/24 13:45 DCW (Rec: 04/30/24 17:05 DCW [id number]) Current Condition History of Current Condition Onset Date Ten month history Current Complaints Low back pain, hip and leg pain, radicular symptoms History of Current Condition Pt is a 74 year old female presenting to skilled therapy with a complex history of low back and leg pain. Pt initially came in for an initial evaluation on 04/19/24. Upon coming back from the waiting room, pt was struggling to walk under her own power, required to hang on to therapist's arm, stopped multiple times over the ~100' to the treatment room. During subjective history, pt made off-hand mention about recent difficulty with bladder voiding. Upon further inquiry, pt noted that she often has saddle numbness. Due to red flags for cauda equina syndrome, therapist stopped evaluation and strongly recommend pt go to the ED for further assessment. Following some confusion, pt did eventually receive an MRI (see below). Pt cleared to return for skilled PT. Patient comes in now today (04/30/24) feeling much better, walking well under her own power. Still experiencing some difficulty after sitting for extended periods of time, or when first getting up in the morning. Pt reports pain initially began last summer, had some mild back pain, but then became sick with Covid, which worsened her pain. Pt then in August received a Covid vaccination, and then felt like symptoms worsened again. Pt was experiencing severe pain in low back and down the back of her legs, in addition (as described above) to apparent saddle numbness and difficulty voiding her bladder due to increased muscle tone. Pt notes today that she felt she just has to finally recover from illness, get the infection out of her. Pt is concerned that her symptoms might be a sign of long Covid. Pt would like to return to the gym without pain to help build strength back up. Prior Treatments and Tests Lumbar MRI: IMPRESSION: 1. Multilevel severe disc desiccation, height loss, and reactive endplate changes. 2. Anterolisthesis, severe facet and ligamentum flavum hypertrophy and broad-based disc bulge at L3-4 with severe resultant canal stenosis. The AP diameter of the canal is less than 4 mm. 3. Left paracentral disc protrusion at L3-4 with narrowing of the left lateral recess. 4. Fat signal mass within the right paracentral region at L5-S1. This does not have the characteristic appearance of an extruded disc fragment. Contrast enhanced MRI of the lumbar spine recommended to further characterize this finding. 5. Fluid fluid level within a cystic lesion in the left upper renal pole. Further characterization with ultrasound or renal mass protocol CT recommended. 6. Questionable fatty mass within the right pararenal space versus variation in T2 signal of the retroperitoneal fat. CT or contrast MRI of this region could be used to further characterize this finding. per Sary Wright on 04/21/2024 PT-OP-C Subjective Start: 04/30/24 16:45 Freq: Status: Active Protocol: Document 07/30/24 15:30 NBM (Rec: 07/30/24 17:04 NBM [id number]) OP-PT Subjective Patient Comments Patient Comments Annika reports she was doing well and then woke up with hip soreness this morning so did clamshells and IT band stretches. Today she sat in her car weird to feed her dog and hurt her hip, and was able to do stretches for 10 minutes which helped. She's still working on not shuffling her feet. She wants to resume Silver Sneakers as soon as possible. PT-OP-F Manual Assessment Start: 04/30/24 16:45 Freq: Status: Active Protocol: Document 07/06/24 11:16 DCW (Rec: 07/06/24 11:30 DCW [id number]) Manual Assessments Soft Tissue Assessment Soft Tissue Mobility Assessment Mild-moderate tenderness with palpation along low back and glutes PT-OP-K Range of Motion Start: 04/30/24 16:45 Freq: Status: Active Protocol: Document 07/06/24 11:16 DCW (Rec: 07/06/24 11:30 DCW [id number]) Lumbar Spine Range of Motion Lumbar Spine Active Degrees Testing Position Standing Flexion 65 Extension 32 PT-OP-L Special Tests Start: 04/30/24 16:45 Freq: Status: Active Protocol: Document 07/06/24 11:16 DCW (Rec: 07/06/24 11:30 DCW [id number]) Special Tests Lumbar Spine Special Tests Compression Test Results Negative PT-OP-M Strength Start: 04/30/24 16:45 Freq: Status: Active Protocol: Document 07/06/24 11:16 DCW (Rec: 07/06/24 11:30 DCW [id number]) Hip Strength Hip Manual Muscle Testing Right Flexion (L2) 4+ Good+ Extension (S1) 4 Good Abduction 4+ Good+ Adduction 4+ Good+ Left Flexion (L2) 4+ Good+ Extension (S1) 4 Good Abduction 4+ Good+ Adduction 4+ Good+ Knee Strength Knee Manual Muscle Testing Right Flexion (S2) 5 Normal Extension (L3) 5 Normal Left Flexion (S2) 5 Normal Extension (L3) 4+ Good+ PT-OP-Q Treatments Start: 04/30/24 16:45 Freq: Status: Active Protocol: Document 07/30/24 15:30 NBM (Rec: 07/30/24 17:04 NBM [id number]) Therapeutic Exercises Standing Exercises Shoulder Extension Standing Exercise Name Shoulder Extension w/ TrA and breathwork- HEP Side bilateral Resistance Green Reps/Minutes x10 Comments pain-free Pallof Press Standing Exercise Name Pallof Press - HEP Side bilateral Resistance double [place] band (Lvl 2) Reps/Minutes x10 ea Comments cues for breathwork, pain-free Therapeutic Activity Therapeutic Activity Body mechanics Name Loading/Unloading shade matcher simulation Reps/Minutes 8' Comments I/s pt in turning feet towards work instead of twisting, staggered stance, closing 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 Manual Therapy Treatment Other Other Manual Treatments assessment of TrA bracing in supine. Self-Care/Home Management Treatment Education Patient Education Home Exercise Program Other Education Verbal and demo'd review of HEP, HO given for Beth ext and Paloff press. PT-OP-T Assessment and Plan Start: 04/30/24 16:45 Freq: Status: Active Protocol: Document 07/30/24 15:30 NB (Rec: 07/30/24 17:04 NB [id number]) Physical Therapy Assessment Goals Three Impairment Pt fair-poor with abdominal bracing Alf Goal (LTG) Pt to improve ability to brace abdominal muscles and increase core strength in order to improve support for low back LTG Duration 08/20/24 (07/30/24 MET) Two Impairment Bilateral hip weakness Alf Goal (LTG) Pt to demonstrate improving hip strength by testing with MMT at least 4/5 in all planes bilaterally in order to improve ability to stand/walk when first getting up in the morning LTG Duration Met One Impairment Pt does not have an approrpiate home exercise program Short Term Goal (STG) Pt to be independent and compliant with an appropriate HEP STG Duration 08/20/24 (07/30/24 MET) Assessment Summary Assessment Treatment focus on assessment for discharge. Annika meets remaining goals today: LTG 3 to improve ability to brace abdominal muscles and increase core strength in order to improve support for low back, as she is able to activate Transverse abdominis m. w/ sustained hold in supine; STG 1 to be independent and compliant with an appropriate HEP, as reported with her ability to address pain resulting from poor body mechanics with appropriate HEP exercises and stretching. Pt is also instructed today on body mechanics review for loading/unloading shade matcher with same concepts taught last session for sweeping balcony of facing work closely and using a staggered stance. Discussed pt's seated mechanics in car feeding dog today which aggravated hip pain and pt's increasing awareness for appropriate mechanics and how to use HEP to manage pain. Pt is agreeable to discharge at this time. Physical Therapy Plan Frequency and Duration Frequency of Treatment 2x/Week Plan of Care Start Date 07/06/24 Plan of Care End Date 08/20/24 Therapeutic Interventions Therapeutic Interventions Home Exercise Program,Manual Therapy,Neuromuscular Re- education,Patient/Caregiver Education,Self-Care/Home Management,Soft Tissue Mobilization,Therapeutic Activities,Therapeutic Exercises Modalities Cold Pack/Ice Massage,Electric Stimulation,Hot Packs, Ultrasound Next Visit Focus/Plan Next Note Type Treatment Note Next Visit Plan Last visit; appropriate for D/ C per evaluating PT and pt agreement.
--- NOTE | 2024-08-03 11:20 | PT.OPDS ---
Current Diagnoses Pain in left hip (07/30/24) Stiffness of other specified joint, not elsewhere classified (07/30/24) Lumbago with sciatica, unspecified side (07/30/24) Other abnormalities of gait and mobility (07/30/24) Visit Care Team Role Provider Type KELLEY Aquino Family Provider Advanced Pediatric Physician Assistant Specialty: [facility] Address: [address] [place] [address], [id number] Email: [email or web address] Wilberto Das DO Attending Provider Physician Primary Care Provider Referring Provider Specialty: [facility] Address: [address] [place] [address], [address], [place], [address] Email: [email or web address] Visit Number Visit Number 12 Discharge Summary PT-OP-B Current Condition Start: 04/30/24 16:45 Freq: Status: Active Protocol: Document 04/30/24 13:45 DCW (Rec: 04/30/24 17:05 DCW [id number]) Current Condition History of Current Condition Onset Date Ten month history Current Complaints Low back pain, hip and leg pain, radicular symptoms History of Current Condition Pt is a 74 year old female presenting to skilled therapy with a complex history of low back and leg pain. Pt initially came in for an initial evaluation on 04/19/24. Upon coming back from the waiting room, pt was struggling to walk under her own power, required to hang on to therapist's arm, stopped multiple times over the ~100' to the treatment room. During subjective history, pt made off-hand mention about recent difficulty with bladder voiding. Upon further inquiry, pt noted that she often has saddle numbness. Due to red flags for cauda equina syndrome, therapist stopped evaluation and strongly recommend pt go to the ED for further assessment. Following some confusion, pt did eventually receive an MRI (see below). Pt cleared to return for skilled PT. Patient comes in now today (04/30/24) feeling much better, walking well under her own power. Still experiencing some difficulty after sitting for extended periods of time, or when first getting up in the morning. Pt reports pain initially began last summer, had some mild back pain, but then became sick with Covid, which worsened her pain. Pt then in August received a Covid vaccination, and then felt like symptoms worsened again. Pt was experiencing severe pain in low back and down the back of her legs, in addition (as described above) to apparent saddle numbness and difficulty voiding her bladder due to increased muscle tone. Pt notes today that she felt she just has to finally recover from illness, get the infection out of her. Pt is concerned that her symptoms might be a sign of long Covid. Pt would like to return to the gym without pain to help build strength back up. Prior Treatments and Tests Lumbar MRI: IMPRESSION: 1. Multilevel severe disc desiccation, height loss, and reactive endplate changes. 2. Anterolisthesis, severe facet and ligamentum flavum hypertrophy and broad-based disc bulge at L3-4 with severe resultant canal stenosis. The AP diameter of the canal is less than 4 mm. 3. Left paracentral disc protrusion at L3-4 with narrowing of the left lateral recess. 4. Fat signal mass within the right paracentral region at L5-S1. This does not have the characteristic appearance of an extruded disc fragment. Contrast enhanced MRI of the lumbar spine recommended to further characterize this finding. 5. Fluid fluid level within a cystic lesion in the left upper renal pole. Further characterization with ultrasound or renal mass protocol CT recommended. 6. Questionable fatty mass within the right pararenal space versus variation in T2 signal of the retroperitoneal fat. CT or contrast MRI of this region could be used to further characterize this finding. per Sary Wright on 04/21/2024 PT-OP-C Subjective Start: 04/30/24 16:45 Freq: Status: Active Protocol: Document 07/30/24 15:30 [facility] (Rec: 07/30/24 17:04 [facility] [id number]) OP-PT Subjective Patient Comments Patient Comments Annika reports she was doing well and then woke up with hip soreness this morning so did clamshells and IT band stretches. Today she sat in her car weird to feed her dog and hurt her hip, and was able to do stretches for 10 minutes which helped. She's still working on not shuffling her feet. She wants to resume Silver Sneakers as soon as possible. PT-OP-F Manual Assessment Start: 04/30/24 16:45 Freq: Status: Active Protocol: Document 07/06/24 11:16 DCW (Rec: 07/06/24 11:30 MIW [id number]) Manual Assessments Soft Tissue Assessment Soft Tissue Mobility Assessment Mild-moderate tenderness with palpation along low back and glutes PT-OP-K Range of Motion Start: 04/30/24 16:45 Freq: Status: Active Protocol: Document 07/06/24 11:16 DCW (Rec: 07/06/24 11:30 DCW [id number]) Lumbar Spine Range of Motion Lumbar Spine Active Degrees Testing Position Standing Flexion 65 Extension 32 PT-OP-L Special Tests Start: 04/30/24 16:45 Freq: Status: Active Protocol: Document 07/06/24 11:16 DCW (Rec: 07/06/24 11:30 DCW [id number]) Special Tests Lumbar Spine Special Tests Compression Test Results Negative PT-OP-M Strength Start: 04/30/24 16:45 Freq: Status: Active Protocol: Document 07/06/24 11:16 DCW (Rec: 07/06/24 11:30 DCW [id number]) Hip Strength Hip Manual Muscle Testing Right Flexion (L2) 4+ Good+ Extension (S1) 4 Good Abduction 4+ Good+ Adduction 4+ Good+ Left Flexion (L2) 4+ Good+ Extension (S1) 4 Good Abduction 4+ Good+ Adduction 4+ Good+ Knee Strength Knee Manual Muscle Testing Right Flexion (S2) 5 Normal Extension (L3) 5 Normal Left Flexion (S2) 5 Normal Extension (L3) 4+ Good+ PT-OP-T Assessment and Plan Start: 04/30/24 16:45 Freq: Status: Active Protocol: Document 08/03/24 11:19 DCW (Rec: 08/03/24 11:20 DCW [id number]) Physical Therapy Assessment Impairments Impairments Activity Tolerance,Functional Activities,Functional Mobility ,Pain,ROM,Soft Tissue Mobility ,Strength,Tone Goals Three Impairment Pt fair-poor with abdominal bracing [facility] Goal (LTG) Pt to improve ability to brace abdominal muscles and increase core strength in order to improve support for low back LTG Duration Met Two Impairment Bilateral hip weakness Associate Field Service Engineer Goal (LTG) Pt to demonstrate improving hip strength by testing with MMT at least 4/5 in all planes bilaterally in order to improve ability to stand/walk when first getting up in the morning LTG Duration Met One Impairment Pt does not have an appropriate home exercise program Short Term Goal (STG) Pt to be independent and compliant with an appropriate HEP STG Duration Met Progress Towards Goals Progress Towards Goals Goals Met Assessment Summary Assessment Pt has met all initial goals, feels much more confident and in control regarding her low back pain. Pt agreeable to discharge at this time, will continue with independent HEP to maintain functional levels. Physical Therapy Plan Frequency and Duration Frequency of Treatment 2x/Week Plan of Care Start Date 07/06/24 Plan of Care End Date 08/20/24 Discharge Physical Therapy Discharge Reasons Goals Met Next Visit Focus/Plan Next Note Type Discharge Summary
== END 2024-08-03 14:28 | disposition home or self-care (01) ==
LOC: PHYS 15:15
PROVIDERS: Family Provider Nurse Practitioner; PCP Family Medicine; Referring Provider Family Medicine; Visit Provider Family Medicine
DX: M25.552 Pain in left hip (principal); M54.40 Lumbago with sciatica, unspecified side; M25.69 Stiffness of other specified joint, not elsewhere classified; R26.89 Other abnormalities of gait and mobility
CPT/HCPCS: 97110; 97112; 97140; 97162; 97530; 97535

== ENCOUNTER → 2024-11-22 14:53 | Outpatient (CLI) | payer MEDICARE, BC, SELFPAY ==
[2024-11-22 15:20] LABS: Hemoglobin 14.5 g/dL (12.0-16.0); Mean Corpuscular HGB Conc 33.7 % (30-36); Mean Corpuscular Volume 92.1 fL (80-100); Platelet Count 407 X10^3/uL (150-400); Red Blood Cell Count 4.67 X10^6/uL (4.0-5.2); Red Cell Distribution Width 13.2 % (11.6-14.8); White Blood Cell Count 7.7 X10^3/uL (4.5-11.0)
[2024-11-22 15:51] LABS: Alanine Aminotransferase 18 IU/L (<35); Albumin 4.6 g/dL (3.5-5.0); Albumin Globulin Ratio 1.6 (1.0-2.8); Alkaline Phosphatase 101 U/L (38-126); Aspartate Aminotransferase 28 IU/L (14-36); BUN Creatinine Ratio 20.8 (6-22); Bilirubin Total 0.7 mg/dL (0.2-1.3); Blood Urea Nitrogen 20 mg/dL (7-17); Calcium 9.6 mg/dL (8.4-10.2); Carbon Dioxide 27 mmol/L (22-32); Chloride 104 mmol/L (98-107); Estimated Glomerular Filt Rate > 60 mL/min (>60); Globulin 2.9 g/dL (1.7-4.1); Glucose 137 mg/dL (80-110); HEMOLYSIS < 15 (0-50); Sodium 138 mmol/L (137-145); Total Protein 7.5 g/dL (6.3-8.2)
== END ==
LOC: LAB 15:00
PROVIDERS: Family Provider Nurse Practitioner; PCP Family Medicine; Referring Provider Family Medicine; Visit Provider Family Medicine
DX: I10 Essential (primary) hypertension (principal); Z00.00 Encounter for general adult medical examination without abnormal findings
CPT/HCPCS: 80053; 85027

== ENCOUNTER → 2024-11-26 14:51 | Outpatient (CLI) | payer MEDICARE, BC, SELFPAY ==
--- NOTE | 2024-11-26 14:52 | DI.CT.S_ITS ---
PROCEDURE: CT ABDOMEN RENAL PROTOCOL INDICATIONS: F/u from renal cyst TECHNIQUE: Optional 5 mm thick noncontrast images acquired from the diaphragm to the iliac crests. After the administration of intravenous contrast, 5 mm thick images again acquired from the diaphragm to the iliac crests in the arterial and urographic phases. 5 mm thick coronal and sagittal reformats were then acquired. For radiation dose reduction, the following was used: automated exposure control, adjustment of mA and/or kV according to patient size. COMPARISON: [facility], CT, CT ABDOMEN RENAL PROTOCOL, 06/09/2024, 12:15. FINDINGS: Image quality: Diagnostic. Kidneys and Ureters: The kidneys are normal size. No hydronephrosis. Few small nonobstructing calculi are present in each kidney, the largest in the lower pole of the right kidney measures 3 mm. Thin septations are present in the right lower pole 2.3 cm corticomedullary cyst. A corticomedullary 1.2 cm hyperdense mass is present in the posterior midpole left kidney demonstrating mild delayed internal enhancement suggestive of an enhancing imperceptible septation. Occasional cysts elsewhere in each renal cortex are too small to characterize. No enhancing solid mass. No perinephric inflammation. The visible portions of the ureters are normal course and caliber without stones. OTHER: Lower chest: Minor basilar atelectasis. Liver: No solid mass. Gallbladder: No wall thickening or calcified stones. Biliary ducts: No biliary dilation. Pancreas: No ductal dilation. Spleen: Size is within normal limits. Adrenal Glands: No adrenal nodules. Stomach and Bowel: Stomach and visible bowel loops are within normal limits. Peritoneum: No abnormal intraperitoneal fluid. No free air. Ventral Wall: No hernia. Abdominal Nodes: No retroperitoneal or mesenteric adenopathy by size criteria. Vessels: The abdominal aorta, IVC, and portal vein are of normal caliber. Bones: Multilevel severe disc height loss in the thoracolumbar region. IMPRESSION: Development of precontrast hyperdensity throughout a 1.2 cm cortical cyst in the left kidney suggesting hemorrhagic cyst. Minimal delayed intrinsic enhancement. Follow-up renal protocol CT in six months is recommended. Tiny nonobstructing bilateral intrarenal calculi. Dictated by: Deepti Haile M.D. on 11/28/2024 at 0:29 Approved by: Deepti Haile M.D. on 11/28/2024 at 0:48
== END ==
PROVIDERS: Family Provider Nurse Practitioner; PCP Family Medicine; Referring Provider Family Medicine; Visit Provider Family Medicine
DX: N28.1 Cyst of kidney, acquired (principal)
CPT/HCPCS: 74170; Q9967